=== PATIENT | female | born 1950 | race Caucasian/White ===

== ENCOUNTER 2020-11-16 15:34 | Emergency (ER) | payer MEDICARE, MEDICAID, SELFPAY ==
[2020-11-16] VITALS (17 sets, daily range): BP systolic 106–180; BP diastolic 56–87; PULSE 66–80; RESP 13–23; TEMP 36.6; O2SAT 95–100
--- NOTE | 2020-11-16 15:44 | ED_ITS ---
HPI - General Adult <Cassandra Duong MD - Last Filed: 11/19/20 03:52> General Chief complaint: Trauma Stated complaint: fall x3 days ago, busted nose, not acting normal Time Seen by Provider: 11/16/20 15:43 History of Present Illness HPI narrative: 70-year-old woman with a history of hypertension and continued tobacco use presents after a fall 3 days ago. As best we are able to tell she fell and landed on a rock she has a healing abrasion over the bridge of her nose. Apparently after the fall she had contacted her son and her son was concerned that something was not quite right took her to her sister's house today and her sister noted that she has significant short-term memory loss, obvious confusion, difficulty walking and gait that is clearly unsteady all a dramatic change from her baseline. Patient isn't complaining of any specific pain but is also unable to remember a question long enough to even try to answer in any meaningful way. Related Data Allergies Allergy/AdvReac Type Severity Reaction Status Date / Time Cefazolin Allergy Unknown Uncoded 10/12/17 13:07 SULFA (sulfonamide) Allergy Unknown Uncoded 10/12/17 13:07 Tetracycline Allergy Unknown Uncoded 10/12/17 13:07 Zolpidem AdvReac Unknown Uncoded 10/12/17 13:07 Review of Systems <Cassandra Duong MD - Last Filed: 11/19/20 03:52> Review of Systems ROS Unobtainable: Unobtainable due to mental status/LOC Patient History <Cassandra Duong MD - Last Filed: 11/19/20 03:52> Medical History Continuous tobacco abuse Hypertension Exam <Cassandra Duong MD - Last Filed: 11/19/20 03:52> Narrative Exam Narrative: General: Chronically ill-appearing but in no acute distress. Significant confusion and short-term memory loss HEENT: Moist mucous membranes, normal sclera with reactive pupils, Neck: Tender at C1-2 and 3, prior cervical fusion scar Respiratory: Lungs with mild scattered rhonchi with minimal wheeze and no consolidative findings Full and symmetrical air movement Cardiac: Regular rate and rhythm no murmurs no bruits Abdomen: Soft, nontender, good bowel tones, no flank pain Axial skeleton: No tenderness to palpation of ribs thoracic, lumbar spine, or pelvic ring Skin: Quite thin no significant trauma or abrasions aside from that over the bridge of her nose. Significant discoloration to both hands from thin skin, multiple bruises and likely Raynaud's phenomena as well Neurologic: GCS= 14 Significant confusion with impressive short-term memory loss. Antalgic and unsteady gait. She is able to move all extremities and has sensation to all extremities Extremities: Is a splint on her right wrist apparently has had wrist problems for over a year and has an appointment to see an orthopedist tomorrow. Normal range of motion at shoulders elbows wrists hips and knees. She has multiple abrasions over her lower extremities in multiple stages of healing. Her left ankle is significantly swollen with tenderness on the left lateral malleolus. Psych: Cooperative, no insight Initial Vital Signs Initial Vital Signs: Vital Signs Temperature 97.8 F 11/16/20 15:42 Pulse Rate 66 11/16/20 15:42 Respiratory Rate 20 11/16/20 15:42 Blood Pressure 171/87 H 11/16/20 15:42 Pulse Oximetry 95 11/16/20 15:42 <Elijah Edwards DO - Last Filed: 11/16/20 20:06> Initial Vital Signs Initial Vital Signs: Vital Signs Temperature 97.8 F 11/16/20 15:42 Pulse Rate 66 11/16/20 15:42 Respiratory Rate 20 11/16/20 15:42 Blood Pressure 171/87 H 11/16/20 15:42 Pulse Oximetry 95 11/16/20 15:42 Course <Cassandra Duong MD - Last Filed: 11/19/20 03:52> Orders Ordered: Discontinued Medications Hydrocodone Bitart/Acetaminophen (Hydrocodone/Acet 5/325 Tablet) 1 tab PO NOW ONE Stop: 11/16/20 18:58 Last Admin: 11/16/20 19:03 Dose: 1 tab Documented by: JOHN POTASSIUM CHLORIDE IN WATER (Potassium Cl 10 Meq/100 Ml Sophie) 10 meq in 100 mls @ 100 mls/hr IV Q1H KAREEM Stop: 11/16/20 22:14 Last Admin: 11/16/20 21:58 Dose: Not Given Documented by: Infusion: 11/16/20 21:57 Dose: 60 mls/hr Documented by: Admin: 11/16/20 21:30 Dose: 60 mls/hr Documented by: Infusion: 11/16/20 21:21 Dose: 60 mls/hr Documented by: Admin: 11/16/20 19:40 Dose: 60 mls/hr Documented by: Infusion: 11/16/20 19:40 Dose: 60 mls/hr Documented by: Infusion: 11/16/20 18:57 Dose: 60 mls/hr Documented by: Infusion: 11/16/20 18:35 Dose: 75 mls/hr Documented by: Infusion: 11/16/20 18:26 Dose: 80 mls/hr Documented by: Admin: 11/16/20 18:15 Dose: 100 mls/hr Documented by: JOHN Sodium Chloride (Hypertonic Saline 3%) 100 mls @ 100 mls/hr IV NOW ONE Stop: 11/16/20 19:44 Last Infusion: 11/16/20 18:46 Dose: 0 mls/hr Documented by: Infusion: 11/16/20 18:41 Dose: 80 mls/hr Documented by: Admin: 11/16/20 18:37 Dose: 100 mls/hr Documented by: JOHN Vital Signs Vital signs: Vital Signs - 8 hr 11/16/20 15:42 11/16/20 16:48 11/16/20 17:00 Temperature 97.8 F Pulse Rate 66 75 77 Respiratory Rate 20 Blood Pressure 171/87 H Pulse Oximetry 95 99 100 11/16/20 17:01 11/16/20 17:30 11/16/20 17:31 Temperature Pulse Rate 73 74 75 Respiratory Rate Blood Pressure 171/76 H 155/68 H Pulse Oximetry 100 100 100 11/16/20 18:00 11/16/20 18:01 11/16/20 18:30 Temperature Pulse Rate 74 75 72 Respiratory Rate 15 Blood Pressure 173/79 H Pulse Oximetry 100 100 99 11/16/20 18:31 11/16/20 19:00 11/16/20 19:01 Temperature Pulse Rate 72 80 73 Respiratory Rate 16 18 15 Blood Pressure 106/56 L 149/70 H Pulse Oximetry 100 99 99 <DO Ximena Mix Filed: 11/16/20 20:06> Orders Ordered: Discontinued Medications Hydrocodone Bitart/Acetaminophen (Hydrocodone/Acet 5/325 Tablet) 1 tab PO NOW ONE Stop: 11/16/20 18:58 Last Admin: 11/16/20 19:03 Dose: 1 tab Documented by: JOHN POTASSIUM CHLORIDE IN WATER (Potassium Cl 10 Meq/100 Ml Sophie) 10 meq in 100 mls @ 100 mls/hr IV Q1H KAREEM Stop: 11/16/20 22:14 Last Admin: 11/16/20 21:58 Dose: Not Given Documented by: Infusion: 11/16/20 21:57 Dose: 60 mls/hr Documented by: Admin: 11/16/20 21:30 Dose: 60 mls/hr Documented by: Infusion: 11/16/20 21:21 Dose: 60 mls/hr Documented by: Admin: 11/16/20 19:40 Dose: 60 mls/hr Documented by: Infusion: 11/16/20 19:40 Dose: 60 mls/hr Documented by: Infusion: 11/16/20 18:57 Dose: 60 mls/hr Documented by: Infusion: 11/16/20 18:35 Dose: 75 mls/hr Documented by: Infusion: 11/16/20 18:26 Dose: 80 mls/hr Documented by: Admin: 11/16/20 18:15 Dose: 100 mls/hr Documented by: JOHN Sodium Chloride (Hypertonic Saline 3%) 100 mls @ 100 mls/hr IV NOW ONE Stop: 11/16/20 19:44 Last Infusion: 11/16/20 18:46 Dose: 0 mls/hr Documented by: Infusion: 11/16/20 18:41 Dose: 80 mls/hr Documented by: Admin: 11/16/20 18:37 Dose: 100 mls/hr Documented by: JOHN Vital Signs Vital signs: Vital Signs - 8 hr 11/16/20 15:42 11/16/20 16:48 11/16/20 17:00 Temperature 97.8 F Pulse Rate 66 75 77 Respiratory Rate 20 Blood Pressure 171/87 H Pulse Oximetry 95 99 100 11/16/20 17:01 11/16/20 17:30 11/16/20 17:31 Temperature Pulse Rate 73 74 75 Respiratory Rate Blood Pressure 171/76 H 155/68 H Pulse Oximetry 100 100 100 11/16/20 18:00 11/16/20 18:01 11/16/20 18:30 Temperature Pulse Rate 74 75 72 Respiratory Rate 15 Blood Pressure 173/79 H Pulse Oximetry 100 100 99 11/16/20 18:31 11/16/20 19:00 11/16/20 19:01 Temperature Pulse Rate 72 80 73 Respiratory Rate 16 18 15 Blood Pressure 106/56 L 149/70 H Pulse Oximetry 100 99 99 Medical Decision Making <Cassandra Duong MD - Last Filed: 11/19/20 03:52> Medical Records Medical records reviewed: Yes I reviewed the patient's medical records. Lab Data Lab results reviewed: Yes I reviewed the patient's lab results. Result diagrams: 11/16/20 16:35 11/16/20 16:35 Labs: Lab Results 11/16/20 11/16/20 11/16/20 Range/Units 16:35 16:35 16:35 WBC 9.0 (4.5-11.0) X10^3/uL RBC 3.88 L (4.0-5.2) X10^6/uL Hgb 11.2 L (12.0-16.0) g/dL Hct 31.4 L (36-46) % MCV 80.9 (80-100) fL MCH 29.0 (26-34) PG MCHC 35.8 (30-36) % RDW 14.8 (11.6-14.8) % Plt Count 193 (150-400) X10^3/uL Neut % (Auto) 87.1 H (50-75) % Lymph % (Auto) 4.4 L (25-40) % Hooker % (Auto) 8.2 (3-14) % Eos % (Auto) 0.2 L (2-4) % Baso % (Auto) 0.1 (0-2) % Neut # (Auto) 7800 H (6661-8456) /uL Lymph # (Auto) 400 L (1328-7706) /uL Hooker # (Auto) 700 (0-900) /uL Eos # (Auto) 0 (0-450) /uL Baso # (Auto) 0 (0-100) /uL Sodium 104 L* (137-145) mmol/L Potassium 2.7 L* (3.4-5.1) mmol/L Chloride 62 L* (98-107) mmol/L Carbon Dioxide 31 (22-32) mmol/L BUN 20 H (7-17) mg/dL Creatinine 1.16 H (0.52-1.04) mg/dL Estimated GFR 46.5 L (>60) mL/min BUN/Creatinine Ratio 17.2 (6-22) Glucose 116 H (80-110) mg/dL Serum Osmolality (280-301) mOsmol/kg Calcium 9.4 (8.4-10.2) mg/dL Total Bilirubin 1.3 (0.2-1.3) mg/dL AST 71 H (14-36) IU/L ALT 31 (<35) IU/L Alkaline Phosphatase 128 H (38-126) U/L Troponin I < 0.012 (0.01-0.034) ng/mL Total Protein 7.1 (6.3-8.2) g/dL Albumin 3.9 (3.5-5.0) g/dL Globulin 3.2 (1.7-4.1) g/dL Albumin/Globulin Ratio 1.2 (1.0-2.8) Ethyl Alcohol ( - 10) mg/dL SARS-CoV-2 (PCR) Negative (Negative) 11/16/20 11/16/20 Range/Units 16:35 16:35 WBC (4.5-11.0) X10^3/uL RBC (4.0-5.2) X10^6/uL Hgb (12.0-16.0) g/dL Hct (36-46) % MCV (80-100) fL MCH (26-34) PG MCHC (30-36) % RDW (11.6-14.8) % Plt Count (150-400) X10^3/uL Neut % (Auto) (50-75) % Lymph % (Auto) (25-40) % Hooker % (Auto) (3-14) % Eos % (Auto) (2-4) % Baso % (Auto) (0-2) % Neut # (Auto) (2079-2343) /uL Lymph # (Auto) (6302-3518) /uL Hooker # (Auto) (0-900) /uL Eos # (Auto) (0-450) /uL Baso # (Auto) (0-100) /uL Sodium (137-145) mmol/L Potassium (3.4-5.1) mmol/L Chloride (98-107) mmol/L Carbon Dioxide (22-32) mmol/L BUN (7-17) mg/dL Creatinine (0.52-1.04) mg/dL Estimated GFR (>60) mL/min BUN/Creatinine Ratio (6-22) Glucose (80-110) mg/dL Serum Osmolality 218 L (280-301) mOsmol/kg Calcium (8.4-10.2) mg/dL Total Bilirubin (0.2-1.3) mg/dL AST (14-36) IU/L ALT (<35) IU/L Alkaline Phosphatase (38-126) U/L Troponin I (0.01-0.034) ng/mL Total Protein (6.3-8.2) g/dL Albumin (3.5-5.0) g/dL Globulin (1.7-4.1) g/dL Albumin/Globulin Ratio (1.0-2.8) Ethyl Alcohol < 10 ( - 10) mg/dL SARS-CoV-2 (PCR) (Negative) Imaging Data CT scan - head: Radiologist's Impression: FINDINGS: Image quality: Excellent. CSF spaces: Basal cisterns are patent. No extra-axial fluid collections. The ventricles are symmetric in size and shape. Incidental note of a cavum septum pellucidum. Brain: No intracranial bleeds or masses. There is cerebral volume loss for age, with resultant ventricular and sulcal prominence. There are periventricular and deep white matter chronic small vessel ischemic changes. There is intracranial internal carotid artery atherosclerosis. Skull and face: Calvarium and visualized facial bones appear intact, without s uspicious lesions. Sinuses: Visualized sinuses and mastoids are clear. IMPRESSION: Senescent changes without evidence of an acute intracranial abnormality. Dictated by: Nehemiah Mcelroy D.O. on 11/16/2020 at 15:51 XR ankle: Radiologist's Impression: FINDINGS: Bones: Osseous structures are demineralized. There is no acute fracture. Alignment is normal. Joint spacing is maintained. Soft tissues: There is a joint effusion. There is diffuse soft tissue swelling. Small spurs at the Achilles and plantar fascial insertions. IMPRESSION: Joint effusion and soft tissue swelling without evidence of an acute osseous abnormality. Dictated by: Nehemiah Mcelroy D.O. on 11/16/2020 at 15:38 ECG Data Attestation: I personally reviewed and interpreted this ECG as follows: Interpretation: Sinus rhythm at a rate of 74 Left ventricular hypertrophy with repolarization abnormalities No acute ischemic criteria MDM Narrative Medical decision making narrative: Emergency Medicine: Utilization of CT for Minor Blunt Head Trauma (Adult) Patient is 18 or older, presenting with minor blunt head trauma. Head CT was ordered by an emergency animal caretaker for trauma because Patient is 65 or older and has GCS < 15 CT scans come back unremarkable however sodium is dramatically low at 104, potassium as low as 2.7 chloride at 62. Certainly explaining her altered mental status. Spoke with Dr. Keller, nephrology on-call. His recommendation was 100 cc of hypertonic saline, rechecking a sodium level 1 hour after that. 100% free water restriction. Checking urine osmolality. Will need ICU care with nephrology consultation available. Will see if [facility] has beds available. Findings and plan are reviewed with patient and her sister, questions are answered Care transferred to Dr Edwards at change of shift <Elijah Edwards, - Last Filed: 11/16/20 20:06> Lab Data Lab results reviewed: Yes I reviewed the patient's lab results. Labs: Lab Results 11/16/20 11/16/20 11/16/20 Range/Units 16:35 16:35 16:35 WBC 9.0 (4.5-11.0) X10^3/uL RBC 3.88 L (4.0-5.2) X10^6/uL Hgb 11.2 L (12.0-16.0) g/dL Hct 31.4 L (36-46) % MCV 80.9 (80-100) fL MCH 29.0 (26-34) PG MCHC 35.8 (30-36) % RDW 14.8 (11.6-14.8) % Plt Count 193 (150-400) X10^3/uL Neut % (Auto) 87.1 H (50-75) % Lymph % (Auto) 4.4 L (25-40) % Hooker % (Auto) 8.2 (3-14) % Eos % (Auto) 0.2 L (2-4) % Baso % (Auto) 0.1 (0-2) % Neut # (Auto) 7800 H (6719-7670) /uL Lymph # (Auto) 400 L (3650-4806) /uL Hooker # (Auto) 700 (0-900) /uL Eos # (Auto) 0 (0-450) /uL Baso # (Auto) 0 (0-100) /uL Sodium 104 L* (137-145) mmol/L Potassium 2.7 L* (3.4-5.1) mmol/L Chloride 62 L* (98-107) mmol/L Carbon Dioxide 31 (22-32) mmol/L BUN 20 H (7-17) mg/dL Creatinine 1.16 H (0.52-1.04) mg/dL Estimated GFR 46.5 L (>60) mL/min BUN/Creatinine Ratio 17.2 (6-22) Glucose 116 H (80-110) mg/dL Serum Osmolality (280-301) mOsmol/kg Calcium 9.4 (8.4-10.2) mg/dL Total Bilirubin 1.3 (0.2-1.3) mg/dL AST 71 H (14-36) IU/L ALT 31 (<35) IU/L Alkaline Phosphatase 128 H (38-126) U/L Troponin I < 0.012 (0.01-0.034) ng/mL Total Protein 7.1 (6.3-8.2) g/dL Albumin 3.9 (3.5-5.0) g/dL Globulin 3.2 (1.7-4.1) g/dL Albumin/Globulin Ratio 1.2 (1.0-2.8) Ethyl Alcohol ( - 10) mg/dL SARS-CoV-2 (PCR) Negative (Negative) 11/16/20 11/16/20 Range/Units 16:35 16:35 WBC (4.5-11.0) X10^3/uL RBC (4.0-5.2) X10^6/uL Hgb (12.0-16.0) g/dL Hct (36-46) % MCV (80-100) fL MCH (26-34) PG MCHC (30-36) % RDW (11.6-14.8) % Plt Count (150-400) X10^3/uL Neut % (Auto) (50-75) % Lymph % (Auto) (25-40) % Hooker % (Auto) (3-14) % Eos % (Auto) (2-4) % Baso % (Auto) (0-2) % Neut # (Auto) (5266-8928) /uL Lymph # (Auto) (8985-2836) /uL Hooker # (Auto) (0-900) /uL Eos # (Auto) (0-450) /uL Baso # (Auto) (0-100) /uL Sodium (137-145) mmol/L Potassium (3.4-5.1) mmol/L Chloride (98-107) mmol/L Carbon Dioxide (22-32) mmol/L BUN (7-17) mg/dL Creatinine (0.52-1.04) mg/dL Estimated GFR (>60) mL/min BUN/Creatinine Ratio (6-22) Glucose (80-110) mg/dL Serum Osmolality 218 L (280-301) mOsmol/kg Calcium (8.4-10.2) mg/dL Total Bilirubin (0.2-1.3) mg/dL AST (14-36) IU/L ALT (<35) IU/L Alkaline Phosphatase (38-126) U/L Troponin I (0.01-0.034) ng/mL Total Protein (6.3-8.2) g/dL Albumin (3.5-5.0) g/dL Globulin (1.7-4.1) g/dL Albumin/Globulin Ratio (1.0-2.8) Ethyl Alcohol < 10 ( - 10) mg/dL SARS-CoV-2 (PCR) (Negative) Imaging Data Chest x-ray: Radiologist's Impression: [address] [id number] ReportSigned Patient: Arlene Tello KMR#: [id number]: 2Acct:[id number]/Sex: 70 / FDate of Service: 11/16/20Loc: EDAccession Number: [id number] Procedure: XR chest 1V Ordering Provider: Elijah Edwards D.O. PROCEDURE: XR CHEST 1V INDICATIONS: eval for mass TECHNIQUE: One view of the chest was acquired. COMPARISON: None. FINDINGS: Surgical changes and devices: None. Lungs and pleura: Lungs are clear. No pleural effusions or pneumothorax. No visualized mass. Mediastinum: Mediastinal contours appear normal. Heart size is enlarged. Bones and chest wall: No suspicious bony lesions. Overlying soft tissues appear unremarkable. IMPRESSION: No acute pulmonary process. Dictated by: Chhaya Goodrich M.D. on 11/16/2020 at 18:58 Approved by: Chhaya Goodrich M.D. on 11/16/2020 at 18:59 MDM Narrative Medical decision making narrative: Dr Edwards: Received turned over. Reviewed patient's history and physical. Introduced myself to the patient. Up to this point patient is found to be hyponatremic, hypokalemic and hypochloremic. CT scans of her head and neck are unremarkable. Dr. Duong who initially evaluated the patient here in the emergency department discussed the case with Nephrology at [facility] who recommended 3% saline at 100 cc/hour. I discussed the case with Dr. bernal principal technical architect at [facility] and telling him who agreed to take the patient in transfer. He recommended not giving the patient the 3% saline. Chest x-ray was added on per his recommendation. Alcohol level was also added on per his recommendation. He recommended a very slow increase in her sodium with initially having limitations on free water intake. I did discuss the transfer with the patient and family at bedside. Patient is stable for transfer. Discharge Plan Departure Patient Disposition: [facility] Clinical Impression: Hyponatremia, Hypokalemia, Fall, Hypochloremia
--- NOTE | 2020-11-16 16:05 | DI.RAD.S_ITS ---
PROCEDURE: XR ANKLE LT MIN 3V INDICATIONS: fall, swelling and pain TECHNIQUE: 3 views of the ankle were acquired. COMPARISON: None. FINDINGS: Bones: Osseous structures are demineralized. There is no acute fracture. Alignment is normal. Joint spacing is maintained. Soft tissues: There is a joint effusion. There is diffuse soft tissue swelling. Small spurs at the Achilles and plantar fascial insertions. IMPRESSION: Joint effusion and soft tissue swelling without evidence of an acute osseous abnormality. Dictated by: Nehemiah Mcelroy D.O. on 11/16/2020 at 15:38 Approved by: Nehemiah Mcelroy D.O. on 11/16/2020 at 15:50
--- NOTE | 2020-11-16 16:06 | DI.CT.S_ITS ---
PROCEDURE: CT HEAD/BRAIN WO CON INDICATIONS: fall, GCS=14 TECHNIQUE: Noncontrast 4.5 mm thick angled axial sections acquired from the foramen magnum to the vertex, with coronal and sagittal reformats. For radiation dose reduction, the following was used: automated exposure control, adjustment of mA and/or kV according to patient size. COMPARISON: None. FINDINGS: Image quality: Excellent. CSF spaces: Basal cisterns are patent. No extra-axial fluid collections. The ventricles are symmetric in size and shape. Incidental note of a cavum septum pellucidum. Brain: No intracranial bleeds or masses. There is cerebral volume loss for age, with resultant ventricular and sulcal prominence. There are periventricular and deep white matter chronic small vessel ischemic changes. There is intracranial internal carotid artery atherosclerosis. Skull and face: Calvarium and visualized facial bones appear intact, without suspicious lesions. Sinuses: Visualized sinuses and mastoids are clear. IMPRESSION: Senescent changes without evidence of an acute intracranial abnormality. Dictated by: Nehemiah Mcelroy D.O. on 11/16/2020 at 15:51 Approved by: Nehemiah Mcelroy D.O. on 11/16/2020 at 15:55
--- NOTE | 2020-11-16 16:06 | DI.CT.S_ITS ---
PROCEDURE: CT CERVICAL SPINE WO CON INDICATIONS: fall, tender C2,3,4 TECHNIQUE: Noncontrast 3 mm thick sections acquired from the skull base to the T4 level. Sagittal and coronal reformats were then constructed. For radiation dose reduction, the following was used: automated exposure control, adjustment of mA and/or kV according to patient size. COMPARISON: None. FINDINGS: Image quality: Excellent. Bones: There is no acute fracture. Minimal anterolisthesis of C4 on C5 is likely degenerative. There is mild intervertebral disc space loss noted throughout the cervical spine with complete disc space loss C6-C7. There is diffuse endplate degenerative changes, uncovertebral joint hypertrophy and facet arthropathy. Posterior disc herniation is noted C3-C4 which causes mild central spinal canal stenosis. There is disc bulging at C5-C6 which causes at least mild to moderate spinal canal stenosis. There is severe spinal canal stenosis posterior to C6-C7 from disc osteophyte complex. Multiple levels of mild bony neural foraminal stenosis are noted. There is moderate spinal canal stenosis at C5-C6 and C6-C7. Soft tissues: Prevertebral soft tissues are normal in thickness. No paravertebral hematomas. No apical pneumothoraces. There is diffuse carotid vascular calcifications. There is mild a pickle pleural scarring. IMPRESSION: No acute fracture or traumatic malalignment. Advanced degenerative changes of the cervical spine with severe spinal canal stenosis posterior to C6-C7. There is also varying degrees of neural foraminal stenosis which is worse at C5-C6 and C6-C7. Dictated by: Nehemiah Mcelroy D.O. on 11/16/2020 at 15:55 Approved by: Nehemiah Mcelroy D.O. on 11/16/2020 at 16:02
[2020-11-16 16:52] LABS: Add Manual Diff / Slide Review NO; Basophils Absolute Auto 0 /uL (0-100); Basophils Percent Auto 0.1 % (0-2); Eosinophils Absolute Auto 0 /uL (0-450); Eosinophils Percent Auto 0.2 % (2-4); Hematocrit 31.4 % (36-46); Hemoglobin 11.2 g/dL (12.0-16.0); Lymphocytes Absolute Auto 400 /uL (1100-4500); Lymphocytes Percent Auto 4.4 % (25-40); Mean Corpuscular HGB Conc 35.8 % (30-36); Mean Corpuscular Volume 80.9 fL (80-100); Monocytes Absolute Auto 700 /uL (0-900); Monocytes Percent Auto 8.2 % (3-14); Neutrophils Absolute Auto 7800 /uL (1500-7000); Neutrophils Percent Auto 87.1 % (50-75); Platelet Count 193 X10^3/uL (150-400); Red Blood Cell Count 3.88 X10^6/uL (4.0-5.2); Red Cell Distribution Width 14.8 % (11.6-14.8)
[2020-11-16 16:58] LABS: Alanine Aminotransferase 31 IU/L (<35); Albumin 3.9 g/dL (3.5-5.0); Albumin Globulin Ratio 1.2 (1.0-2.8); Alkaline Phosphatase 128 U/L (38-126); Aspartate Aminotransferase 71 IU/L (14-36); BUN Creatinine Ratio 17.2 (6-22); Bilirubin Total 1.3 mg/dL (0.2-1.3); Blood Urea Nitrogen 20 mg/dL (7-17); Calcium 9.4 mg/dL (8.4-10.2); Carbon Dioxide 31 mmol/L (22-32); Estimated Glomerular Filt Rate 46.5 mL/min (>60); Globulin 3.2 g/dL (1.7-4.1); Glucose 116 mg/dL (80-110); HEMOLYSIS < 15 (0-50); Total Protein 7.1 g/dL (6.3-8.2)
[2020-11-16 17:09] LABS: Troponin I < 0.012 ng/mL (0.01-0.034)
[2020-11-16 17:11] LABS: Sodium 104 mmol/L (137-145)
[2020-11-16 17:12] LABS: Chloride 62 mmol/L (98-107); Potassium 2.7 mmol/L (3.4-5.1)
[2020-11-16 17:39] LABS: COVID19 - ADMIT (NP swab/PCR) Negative (Negative)
[2020-11-16] MEDS: POTASSIUM CHLORIDE IN WATER 10 MEQ/100 ML PIGGYBACK 100 MEQ IV (18:15)
[2020-11-16] MEDS: SODIUM CHLORIDE 3 % 100 ML IV (18:37)
--- NOTE | 2020-11-16 18:42 | DI.RAD.S_ITS ---
PROCEDURE: XR CHEST 1V INDICATIONS: eval for mass TECHNIQUE: One view of the chest was acquired. COMPARISON: None. FINDINGS: Surgical changes and devices: None. Lungs and pleura: Lungs are clear. No pleural effusions or pneumothorax. No visualized mass. Mediastinum: Mediastinal contours appear normal. Heart size is enlarged. Bones and chest wall: No suspicious bony lesions. Overlying soft tissues appear unremarkable. IMPRESSION: No acute pulmonary process. Dictated by: Chhaya Goodrich M.D. on 11/16/2020 at 18:58 Approved by: Chhaya Goodrich M.D. on 11/16/2020 at 18:59
[2020-11-16 18:53] LABS: Ethanol (ETOH) < 10 mg/dL
[2020-11-16] MEDS: HYDROCODONE/ACET 5/325 TABLET 1 TAB PO (19:03)
[2020-11-16] MEDS: POTASSIUM CHLORIDE IN WATER 10 MEQ/100 ML PIGGYBACK 60 MEQ IV ×2 (19:40→21:30)
[2020-11-18 17:10] LABS: Osmolality, Serum 218 mOsmol/kg (280-301)
== END 2020-11-16 21:58 | disposition short-term general hospital (02) ==
PROVIDERS: Emergency Medicine; Emergency Provider Emergency Medicine
DX: E87.1 Hypo-osmolality and hyponatremia (principal); E87.6 Hypokalemia; E87.8 Other disorders of electrolyte and fluid balance, not elsewhere classified; W19.XXXA Unspecified fall, initial encounter; S00.31XA Abrasion of nose, initial encounter; M25.572 Pain in left ankle and joints of left foot; M54.2 Cervicalgia; Z20.822 Contact with and (suspected) exposure to COVID-19
CPT/HCPCS: 36415; 70450; 71045; 72125; 73610; 80053; 80320; 83930; 84484; 85025; 87635; 93005; 93010; 99285; C9803

== ENCOUNTER 2023-05-18 20:04 | Inpatient (IN) | payer MEDICARE, MEDICAID, SELFPAY ==
[2023-05-18] VITALS (15 sets, daily range): BP systolic 109–211; BP diastolic 54–133; PULSE 77–98; RESP 20–49; TEMP 36.6; O2SAT 69–100; BMI 21.9; BMI 24.8
--- NOTE | 2023-05-18 | DI.ECHO.S_ITS ---
[facility] +---------+ : : [address] [place] : : : : [id number] : : : : Phone: [phone]+ Echocardiogram Report + + :Name: MAICOL SANCHES Study Date: 05/19/2023 Height: 67 in : :[facility] ReadingLocation: Weight: 140 lb : : Gender: Female BSA: 1.7 m2 : :: 1950 Age: 73 yrs BP: 158/72 mmHg: :Reason For Study: CONGESTIVE HEART FAILURE : :Ordering Physician: MARTINEZ, : :NANNETTE Anderson MD Performed By: Cici Camp : :Referring: NANNETTE HENRIQUEZ MD : + + Interpretation Summary 1) Normal left ventricular thickness and size with low normal systolic function (EF 50-55%). 2) Normal right ventricular size and function. 3) No significant valvular abnormalities. 4) The right ventricular systolic pressure is estimated to be at least 46 mmHg based on an estimated right atrial pressure of 8 mm Hg. 5) No prior Echo available for comparison. Procedure: A two-dimensional transthoracic echocardiogram with color flow and Doppler was performed. The study quality was technically adequate. There is no prior echocardiogram noted for this patient. The patient was in normal sinus rhythm during the exam. The heart rate ranged between 51-74 bpm during the study. Left Ventricle: The left ventricle is normal in size and wall thickness. The ejection fraction is estimated to be 50-55%. There are no focal wall motion abnormalities. Diastolic parameters suggest a relaxation abnormality of the left ventricle, consistent with probable normal filling pressures. Right Ventricle: The right ventricle is normal in size and function. Atria: The left atrium is moderately dilated. Right atrial size is normal. There is no Doppler evidence for an interatrial shunt. Mitral Valve: The mitral valve leaflets are mildly calcified. There is no mitral valve stenosis. There is mild mitral regurgitation. Aortic Valve: The aortic valve is not well visualized. There is no aortic valve stenosis. No aortic regurgitation is present. Tricuspid Valve: The tricuspid valve leaflets are thin and pliable. There is mild tricuspid regurgitation. The right ventricular systolic pressure is estimated to be at least 46 mmHg based on an estimated right atrial pressure of 8 mm Hg. Pulmonic Valve: The pulmonic valve is not well seen, but is grossly normal. There is no pulmonic valvular regurgitation. Great Vessels: The aortic root is normal size. The dimensions of the ascending aorta are normal. The IVC is dilated (diameter is greater than 2.1 cm) yet it collapses greater than 50% with a sniff. This suggests a right atrial pressure of 8 mm Hg. Pericardium/ Pleura There is no pericardial effusion. There is no pleural effusion. MMode/2D Measurements & Calculations LVIDd: 5.0 cm LVOT diam: 2.0 cm LVIDs: 3.3 cm Ao root diam: 3.5 cm FS: 35.5 % asc Aorta Diam: 3.6 cm IVSd: 0.89 cm LVPWd: 0.89 cm LV paez. diameter/BSA (cm/m^2): 2.9 LV sys. diameter/BSA (cm/m^2): 1.9 LA A2 area: 23.3 cm2 RA long axis: 5.6 cm LA A4 area: 23.5 cm2 RA area: 18.5 cm2 LA length (vol): 5.9 cm RA vol: 51.7 ml LA vol: 78.4 ml RA : 29.8 ml/m2 LA vol index: 45.1 ml/m2 IVC diam: 2.4 cm RVD1 (basal): 3.3 cm RVD2 (mid): 2.6 cm TAPSE: 3.1 cm Doppler Measurements & Calculations Ao V2 max: 122.3 cm/sec LVOT Max Gustavo: 73.7 cm/sec Ao V2 mean: 90.2 cm/sec LV V1 max P.2 mmHg Ao max P.0 mmHg LV V1 VTI: 16.7 cm Ao mean P.5 mmHg LARISSA(I,D): 1.7 cm2 Ao V2 VTI: 31.6 cm LARISSA(V,D): 1.9 cm2 sev ratio: 0.53 LARISSA indexed to BSA (cm^2/m^2): 0.98 MV E max gustavo: 102.2 cm/sec TR max gustavo: 307.4 cm/sec MV A max gustavo: 66.8 cm/sec TR max P.8 mmHg MV E/A: 1.5 PA pr(Accel): 44.7 mmHg Med Peak E' Gustavo: 9.9 cm/sec E/E' med: 10.3 Lat Peak E' Gustavo: 8.5 cm/sec E/E' lat: 12.0 E/e' average: 11.2 MV dec time: 0.17 sec MVA(VTI): 2.0 cm2 MV V2 mean: 69.3 cm/sec SV(LVOT): 53.5 ml MV mean P.1 mmHg MV V2 VTI: 27.2 cm Reading Physician:09:31 AM
--- NOTE | 2023-05-18 20:11 | ED_ITS ---
HPI - SOB/Dyspnea General Chief Complaint: Shortness of Breath/Dyspnea Stated Complaint: unable to breathe Time Seen by Provider: 05/18/23 20:10 Source: patient, RN notes reviewed and old records reviewed Mode of arrival: Family Vehicle Limitations: no limitations History of Present Illness HPI Narrative: 73-year-old female with history of hypertension and chronic tobacco abuse and COPD. Patient presents with complaint of shortness of breath for the past several days that has been worsening. She denies chest pain or pressure but feels very tight and wheezy. She states she thinks she had a fever today subjectively. She is had a cough which he states became productive today but did not look to see what color it was or consistency. She denies significant nasal congestion. She states no nausea or vomiting. No changes to bowel movements with no diarrhea constipation, no black or bloody stools. Denies any urinary symptoms. Denies any new swelling in her extremities. She notes that she uses albuterol daily, from our conversation does not sound like she uses a steroid inhaler. She states she has several antibiotic allergies. She does continue to use tobacco daily, states she drinks about 7 beers daily denies withdrawal symptoms when not drinking. Denies any recreational or illicit drugs. States she has a primary care physician but can not recall who they are. Related Data Allergies Allergy/AdvReac Type Severity Reaction Status Date / Time Cefazolin Allergy Unknown Uncoded 10/12/17 13:07 SULFA (sulfonamide) Allergy Unknown Uncoded 10/12/17 13:07 Tetracycline Allergy Unknown Uncoded 10/12/17 13:07 Zolpidem AdvReac Unknown Uncoded 10/12/17 13:07 Review of Systems Review of Systems ROS Unobtainable: All systems reviewed & are unremarkable except as noted in HPI and below Patient History Medical History Alcoholism Continuous tobacco abuse Hypertension Social History household members: none Smoking Status: Current every day smoker Exam Narrative Exam Narrative: GEN: Elderly appearing female alert and oriented x 3, patient appears to be in moderate to severe distress. HEENT: Atraumatic, pupils are equal round reactive to light, extraocular movements are intact, nares are clear, there is no conjunctival pallor. Throat is clear without any exudates, erythema, tonsillar enlargement or uvular deviation HEART: Tachycardic but Regular rate and rhythm without murmur, clicks, rubs. pulses are equal in upper and lower extremities, trace edema bilateral lower extremities. LUNGS:Lungs patient has significant wheeze bilaterally but right greater than left, tachypnea, accessory muscle use the SCM, patient is able to speak in 2-3 words at a time. No rales, crackles, chest moves symmetrically. ABD:bowel sounds normal, soft, non-tender, no guarding, rebound, rigidity, no masses noted, no hepatosplenomegaly :No CVA tenderness MSCL: Non-tender, no muscle atrophy, muscles strength 5/5 upper and lower extremities, full range of motion, normal gait NEURO:CN 2-12 intact, sensation normal SKIN: No rash, erythema or other skin changes noted. Initial Vital Signs Initial Vital Signs: Vital Signs Temperature 98 F 05/18/23 20:08 Pulse Rate 77 05/18/23 20:08 Respiratory Rate 32 H 05/18/23 20:08 Blood Pressure 207/109 H 05/18/23 20:08 Pulse Oximetry 69 L 05/18/23 20:08 Oxygen Delivery Method Room Air 05/18/23 20:08 Course Orders Ordered: ED Orders 05/18/23 20:17 XR chest 1V Stat EKG-12 Lead Stat Measure peak expiratory flow ONCE RT Consult Eval and Treat NOW 05/18/23 20:28 Complete Blood Count AUTO DIFF Stat Comprehensive Metabolic Panel Stat Lactate (Lactic Acid) Stat NT-proBNP (BNP-Adult 18+) Stat PTT Partial Thromboplastin Peter Stat Prothrombin Time INR Stat Respiratory Panel (Film Array) Stat Troponin & CK Cardiac Panel Stat 05/18/23 21:04 ABG [Arterial Blood Gas] Stat Acetaminophen (Acetaminophen 325 Mg Tablet) 650 mg PO Q6H PRN PRN Reason: Fever/Mild Pain (1-3) Albuterol (Albuterol 2.5 Mg/3 Ml Neb (Adult)) 2.5 mg INH [id number] PRN PRN Reason: Shortness Of Breath Albuterol/Ipratropium (Albuterol/Ipratropium 3 Ml Ampul) 3 ml INH [id number] PRN PRN Reason: Shortness Of Breath Enoxaparin Sodium (Enoxaparin 30 Mg/0.3 Ml Syringe) 30 mg SUBCUT DAILY [facility] Furosemide (Furosemide 40 Mg Tablet) 40 mg PO DAILY [facility] Hydralazine HCl (Hydralazine 20 Mg/Ml Vial) 10 mg IV Q6HR PRN PRN Reason: For SBP>170 Methylprednisolone (Methylprednisolone 125 Mg/2 Ml Vial) 60 mg IV Q12H [facility] Metoprolol Tartrate (Metoprolol Ir 25 Mg Tablet) 25 mg PO BID [facility] Last Admin: 05/19/23 01:29 Dose: Not Given Documented By: LN Naloxone HCl (Naloxone 0.4 Mg/Ml Vial) 0.2 mg IV Q2MIN PRN PRN Reason: Opiate Reversal Nicotine (Nicotine 21 Mg Patch) 21 mg TOP DAILY PRN PRN Reason: smoking Oseltamivir Phosphate (Oseltamivir 75 Mg Capsule) 75 mg PO BID [facility] Pantoprazole Sodium (Pantoprazole Dr 40 Mg Tablet) 40 mg PO 0700 [facility] Discontinued Medications Albuterol (Albuterol 2.5 Mg/3 Ml Neb (Adult)) 10 mg INH NOW ONE Stop: 05/18/23 20:40 Last Admin: 05/18/23 20:44 Dose: 10 mg Documented By: MR Albuterol/Ipratropium (Albuterol/Ipratropium 3 Ml Ampul) 3 ml INH NOW ONE Stop: 05/18/23 20:16 Last Admin: 05/18/23 20:21 Dose: 3 ml Documented By: MR Albuterol/Ipratropium (Albuterol/Ipratropium 3 Ml Ampul) 3 ml INH NOW ONE Stop: 05/18/23 20:20 Last Admin: 05/18/23 20:21 Dose: 3 ml Documented By: MR Albuterol/Ipratropium (Albuterol/Ipratropium 3 Ml Ampul) 3 ml INH NOW ONE Stop: 05/18/23 20:21 Last Admin: 05/18/23 20:24 Dose: 3 ml Documented By: MR Furosemide (Furosemide 40 Mg/4 Ml Vial) 40 mg IV NOW ONE Stop: 05/18/23 21:01 Last Admin: 05/18/23 21:18 Dose: 40 mg Documented By: KARTIK Lorazepam (Lorazepam 2 Mg/Ml Inj) 0.5 mg IV NOW ONE Stop: 05/18/23 21:12 Last Admin: 05/18/23 21:18 Dose: 0.5 mg Documented By: KARTIK Methylprednisolone (Methylprednisolone 125 Mg/2 Ml Vial) 125 mg IV NOW ONE Stop: 05/18/23 20:18 Last Admin: 05/18/23 20:27 Dose: 125 mg Documented By: ASHVIN Nitroglycerin (Nitroglycerin Oint 1 Inch/Gm Oint...G.) 0.5 inch TOP NOW ONE Stop: 05/18/23 21:18 Last Admin: 05/18/23 21:20 Dose: 0.5 inch Documented By: KARTIK Oseltamivir Phosphate (Oseltamivir 75 Mg Capsule) 75 mg PO NOW ONE Stop: 05/18/23 21:56 Last Admin: 05/18/23 22:37 Dose: 75 mg Documented By: KARTIK Vital Signs Vital signs: Vital Signs - 8 hr 05/18/23 20:08 05/18/23 20:13 05/18/23 20:14 Temperature 98 F Pulse Rate 77 81 79 Respiratory Rate 32 H Blood Pressure 207/109 H Pulse Oximetry 69 L 92 97 Oxygen Delivery Method Room Air 05/18/23 20:14 05/18/23 20:25 05/18/23 20:25 Temperature Pulse Rate 77 Respiratory Rate 25 H Blood Pressure 207/109 H 180/85 H Pulse Oximetry 100 Oxygen Delivery Method 05/18/23 20:30 05/18/23 20:36 05/18/23 20:36 Temperature Pulse Rate 81 81 Respiratory Rate 28 H 26 H Blood Pressure 211/97 H Pulse Oximetry 99 98 Oxygen Delivery Method 05/18/23 21:00 05/18/23 21:01 05/18/23 21:01 Temperature Pulse Rate 89 92 H Respiratory Rate 40 H 49 H Blood Pressure 183/133 H Pulse Oximetry 99 99 Oxygen Delivery Method 05/18/23 21:20 05/18/23 21:30 05/18/23 21:30 Temperature Pulse Rate 98 H 97 H Respiratory Rate 29 H Blood Pressure 183/133 H 166/77 H Pulse Oximetry 92 Oxygen Delivery Method BiPAP 05/18/23 22:00 05/18/23 22:00 Temperature Pulse Rate 86 Respiratory Rate 20 Blood Pressure 141/66 H Pulse Oximetry 94 Oxygen Delivery Method MDM - SOB/Dyspnea Lab Data 05/18/23 20:28 05/18/23 20:28 Labs: Lab Results 05/18/23 05/18/23 Range/Units 20:28 21:04 WBC 8.4 (4.5-11.0) X10^3/uL RBC 3.89 L (4.0-5.2) X10^6/uL Hgb 12.0 (12.0-16.0) g/dL Hct 35.1 L (36-46) % MCV 90.2 (80-100) fL MCH 30.8 (26-34) PG MCHC 34.1 (30-36) % RDW 15.1 H (11.6-14.8) % Plt Count 137 L (150-400) X10^3/uL Neut % (Auto) 89.3 H (50-75) % Lymph % (Auto) 4.0 L (25-40) % [place] % (Auto) 6.2 (3-14) % Eos % (Auto) 0.3 L (2-4) % Baso % (Auto) 0.2 (0-2) % Neut # (Auto) 7500 H (2824-6686) /uL Lymph # (Auto) 300 L (0489-1105) /uL [place] # (Auto) 500 (0-900) /uL Eos # (Auto) 0 (0-450) /uL Baso # (Auto) 0 (0-100) /uL PT 11.8 (10.1-12.7) SECONDS INR 1.0 (0.9-1.3) APTT 29 (26-36) SECONDS ABG Sample Site Left radial ABG pH 7.30 L (7.35-7.45) ABG pCO2 60.8 H (35-45) mmHg ABG pO2 47 L* (80-100) mmHg ABG HCO3 30 H (23-27) mmol/L ABG Total CO2 32 H (23-27) mmol/L ABG O2 Saturation 77 L* (95-100) % ABG Base Excess 3.0 (-2-3) mmol/L FiO2 30 Sodium 124 L (137-145) mmol/L Potassium 4.0 (3.4-5.1) mmol/L Chloride 86 L (98-107) mmol/L Carbon Dioxide 28 (22-32) mmol/L BUN 12 (7-17) mg/dL Creatinine 0.71 (0.52-1.04) mg/dL Estimated GFR > 60 (>60) mL/min BUN/Creatinine Ratio 16.9 (6-22) Glucose 163 H (80-110) mg/dL Lactate 1.8 (0.7-2.1) mmol/L Calcium 9.1 (8.4-10.2) mg/dL Total Bilirubin 0.8 (0.2-1.3) mg/dL AST 58 H (14-36) IU/L ALT 22 (<35) IU/L Alkaline Phosphatase 84 (38-126) U/L Total Creatine Kinase 61 (30-135) U/L Troponin I < 0.012 (0.01-0.034) ng/mL NT-Pro-B Natriuret Pep 3990 H (<125) pg/mL Total Protein 8.0 (6.3-8.2) g/dL Albumin 4.1 (3.5-5.0) g/dL Globulin 3.9 (1.7-4.1) g/dL Albumin/Globulin Ratio 1.1 (1.0-2.8) Chlamy pneumoniae PCR Not detected (Not Detect) Adenovirus (PCR) Not detected (Not Detect) B.parapertussis DNA PCR Not detected (Not Detecte) Coronavirus OC43 (PCR) Not detected (Not Detect) Coronavirus HKU1 (PCR) Not detected (Not Detect) Coronavirus 229E (PCR) Not detected (Not Detect) SARS-CoV-2 (PCR) Not detected (Not Detecte) Coronavirus NL63 (PCR) Not detected (Not Detect) Human Metapneumovir PCR Not detected (Not Detect) Influ A (H1N1 Se[place]) PCR Detected H (Not Detect) Influenza Type B (PCR) Not detected (Not Detect) M. pneumoniae (PCR) Not detected (Not Detect) Parainfluenza 1 (PCR) Not detected (Not Detect) Parainfluenza 2 (PCR) Not detected (Not Detect) Parainfluenza 3 (PCR) Not detected (Not Detect) Parainfluenza 4 (PCR) Not detected (Not Detect) RSV (PCR) Not detected (Not Detect) Entero/Rhino (PCR) Not detected (Not Detect) Imaging Data Chest x-ray: Radiologist's Impression: [address] [address] XRay Report Signed Patient: Arlene Tello MR#: [id number] : 1950 Acct:[id number] Age/Sex: 73 / F Date of Service: 05/18/23 Loc: ED Accession Number: [id number] Procedure: XR chest 1V Ordering Provider: Kiki Raymond D.O. PROCEDURE: XR CHEST 1V INDICATIONS: Shortness of breath TECHNIQUE: One view of the chest was acquired. COMPARISON: [facility], , XR CHEST 1V, 11/16/2020, 18:45. FINDINGS: Surgical changes and devices: None. Lungs and pleura: Increased pulmonary markings. Mediastinum: Mediastinal contours appear normal. Heart size is normal. Bones and chest wall: No suspicious bony lesions. Overlying soft tissues appear unremarkable. IMPRESSION: Increased pulmonary markings, suggestive of mild pulmonary edema. Dictated by: Miguel Sanchez M.D. on 05/18/2023 at 20:51 Approved by: Miguel Sanchez M.D. on 05/18/2023 at 20:51 ECG Data Attestation: I personally reviewed and interpreted this ECG as follows: Interpretation: Possibly sinus rhythm there is quite a bit of appears to be PVCs and maybe motion artifact making a little bit difficult to fully evaluate rate of 79 TN 194 QRS of 104 QTC 419. No clear consistent ST elevation throughout leads. MDM Narrative Medical decision making narrative: 73-year-old female in significant respiratory distress, patient's O2 quite low upon arrival some of this may have been contributed with the cold weather but she appears to be working quite hard and has significant wheezing. She is some trace edema but no other significant signs of fluid overload on examination. Patient was treated with steroids, nebs for recheck, patient did have some improvement. EKG, chest x-ray and labs and respiratory panel. Patient's lab workup reflect some fluid overload, BNP is 3900, chest x-ray shows some pulmonary edema. Renal functions appropriate but patient is hyponatremic with a sodium of 124 has been as low as 104 in the past. Patient's white counts appropriate 8.4 little bit of leftward shift platelets are 137 with a appropriate hemoglobin. Coags are negative. Glucose is appropriate 163- troponin. Respiratory panel is positive for influenza. Was noted workup patient appears to have some component of CHF and was given a dose of Lasix. Patient is also quite hypertensive as she is currently been placed on BiPAP after had improvement of aeration but still quite wheezy O2 is 92% but patient has significant work of breathing still was placed / with a rate of 18 30% FiO2 when she was initially placed on ABG shows a respiratory acidosis pH of 7.3 pCO2 of 60 PaO2 is 47 but there is some concern this might be venous is blood was quite dark and was difficult stick pulse ox is pulling at 94% and patient is coloration does not appear to have a PO2 of 47. Patient also received a dose of Ativan as she is quite claustrophobic, there was concern that she might not tolerate the BiPAP well but she is been doing well with it since. Plan for admission for acute hypoxic respiratory distress, CHF with likely COPD overlying, hyponatremia. Did discuss with patient she is full code. She has a friend at bedside who was present for this conversation. Call to tele hospitalist, Dr. Yu, accepts for admission. Noted blood pressure improved significantly with nitro paste for about 30 minutes in his 120 over 90s currently. Patient does seem to be tolerating CPAP well. Repeat ABG does appear improved with pH of 7.347 pCO2 of 52 PO2 of 71 and a bicarb of 29. Respiratory acidosis Critical Care Time Critical Care Time Critical Care Time: Yes Total Critical Care Time: 42 Attestation: The high probability of a clinically significant, sudden or life threatening deterioration of the [cardiac, pulm] system(s) required my full and direct attention, intervention and personal management. The aggregate critical care time was [42] minutes. This time is in addition to time spent performing reported procedures but includes the following: [x] Data Review and interpretation [x] Patient assessment and monitoring of vital signs [x] Documentation [x] Medication orders and management Discharge Plan Departure Patient Disposition: Admitted As Inpatient Clinical Impression: Acute respiratory distress, Acute CHF, Hyponatremia, Influenza A Admit Date/Time: 05/18/23 22:23 Admit Provider: Saroj Oviedo
--- NOTE | 2023-05-18 20:17 | DI.RAD.S_ITS ---
PROCEDURE: XR CHEST 1V INDICATIONS: Shortness of breath TECHNIQUE: One view of the chest was acquired. COMPARISON: [facility], CR, XR CHEST 1V, 11/16/2020, 18:45. FINDINGS: Surgical changes and devices: None. Lungs and pleura: Increased pulmonary markings. Mediastinum: Mediastinal contours appear normal. Heart size is normal. Bones and chest wall: No suspicious bony lesions. Overlying soft tissues appear unremarkable. IMPRESSION: Increased pulmonary markings, suggestive of mild pulmonary edema. Dictated by: Miguel Sanchez M.D. on 05/18/2023 at 20:51 Approved by: Miguel Sanchez M.D. on 05/18/2023 at 20:51
[2023-05-18] MEDS: ALBUTEROL/IPRATROPIUM 3 ML AMPUL INH ×3 (20:21→20:24)
[2023-05-18] MEDS: methylPREDNISolone 125 MG/2 ML VIAL IV (20:27)
[2023-05-18 20:38] LABS: Add Manual Diff / Slide Review NO; Basophils Absolute Auto 0 /uL (0-100); Basophils Percent Auto 0.2 % (0-2); Eosinophils Absolute Auto 0 /uL (0-450); Eosinophils Percent Auto 0.3 % (2-4); Hematocrit 35.1 % (36-46); Lymphocytes Absolute Auto 300 /uL (1100-4500); Mean Corpuscular HGB Conc 34.1 % (30-36); Mean Corpuscular Hemoglobin 30.8 PG (26-34); Mean Corpuscular Volume 90.2 fL (80-100); Monocytes Absolute Auto 500 /uL (0-900); Monocytes Percent Auto 6.2 % (3-14); Neutrophils Absolute Auto 7500 /uL (1500-7000); Neutrophils Percent Auto 89.3 % (50-75); Platelet Count 137 X10^3/uL (150-400); Red Blood Cell Count 3.89 X10^6/uL (4.0-5.2); Red Cell Distribution Width 15.1 % (11.6-14.8); White Blood Cell Count 8.4 X10^3/uL (4.5-11.0)
[2023-05-18 20:43] LABS: Prothrombin Time 11.8 SECONDS (10.1-12.7)
[2023-05-18] MEDS: ALBUTEROL 2.5 MG/3 ML NEB (ADULT) 10 MG INH (20:44)
[2023-05-18 20:46] LABS: Lactate (Lactic Acid) 1.8 mmol/L (0.7-2.1)
[2023-05-18 20:47] LABS: Alanine Aminotransferase 22 IU/L (<35); Albumin 4.1 g/dL (3.5-5.0); Albumin Globulin Ratio 1.1 (1.0-2.8); Alkaline Phosphatase 84 U/L (38-126); Aspartate Aminotransferase 58 IU/L (14-36); BUN Creatinine Ratio 16.9 (6-22); Bilirubin Total 0.8 mg/dL (0.2-1.3); Blood Urea Nitrogen 12 mg/dL (7-17); Calcium 9.1 mg/dL (8.4-10.2); Carbon Dioxide 28 mmol/L (22-32); Chloride 86 mmol/L (98-107); Creatine Kinase 61 U/L (30-135); Estimated Glomerular Filt Rate > 60 mL/min (>60); Globulin 3.9 g/dL (1.7-4.1); Glucose 163 mg/dL (80-110); HEMOLYSIS 23 (0-50); Sodium 124 mmol/L (137-145)
[2023-05-18 20:51] LABS: PTT Partial Thromboplastin Tim 29 SECONDS (26-36)
[2023-05-18 20:59] LABS: NT-proBNP (BNP-Adult 18+) 3990 pg/mL (<125); Troponin I < 0.012 ng/mL (0.01-0.034)
--- NOTE | 2023-05-18 21:00 | PC.NURSE ---
Rt had removed neb treatment. Pt immediately dropped to 76% on RA. Rt placed on continuous neb. Spo2 increased back to high 90s.
[2023-05-18] MEDS: FUROSEMIDE 40 MG/4 ML VIAL IV (21:18)
[2023-05-18] MEDS: LORazepam 2 MG/ML INJ 0.5 MG IV (21:18)
[2023-05-18] MEDS: NITROGLYCERIN OINT 1 INCH/GM OINT...G. 0.5 INCH TOP (21:20)
[2023-05-18 21:39] LABS: Adenovirus Not Detected (Not Detect); B. parapertussis Not Detected (Not Detecte); Bordetella pertussis Not Detected (Not Detect); Chlamydophila pneumoniae Not Detected (Not Detect); Coronavirus 229E Not Detected (Not Detect); Coronavirus HKU1 Not Detected (Not Detect); Coronavirus NL 63 Not Detected (Not Detect); Coronavirus OC43 Not Detected (Not Detect); Human Metapneumovirus Not Detected (Not Detect); Human Rhinovirus/Enterovirus Not Detected (Not Detect); Influenza A H1-2009 Detected (Not Detect); Influenza B Not Detected (Not Detect); Mycoplasma pneumoniae Not Detected (Not Detect); Parainfluenza Virus 1 Not Detected (Not Detect); Parainfluenza Virus 2 Not Detected (Not Detect); Parainfluenza Virus 3 Not Detected (Not Detect); Parainfluenza Virus 4 Not Detected (Not Detect); Respiratory Syncytial Virus Not Detected (Not Detect); SARS- CoV-2 Not Detected (Not Detecte)
[2023-05-18 21:41] LABS: PCO2 ABG 60.8 mmHg (35-45)
[2023-05-18 21:42] LABS: HCO3 ABG 30 mmol/L (23-27); PO2 ABG 47 mmHg (80-100); TCO2 ABG 32 mmol/L (23-27)
[2023-05-18 21:43] LABS: Allen Test for ABG Passed? Yes, Passed; Blood Gas Collection Site Left Radial; Fractionated Inspired Oxygen 30; Oxygen Saturation ABG 77 % (95-100)
[2023-05-18] MEDS: OSELTAMIVIR 75 MG CAPSULE PO (22:37)
--- NOTE | 2023-05-18 22:39 | PC.NURSE ---
BP down to 109/54, nitro paste removed, provider aware.
[2023-05-18 22:51] LABS: PCO2 ABG 52.9 mmHg (35-45); PO2 ABG 71 mmHg (80-100); pH ABG 7.34 (7.35-7.45)
[2023-05-18 22:52] LABS: Allen Test for ABG Passed? Yes, Passed; Blood Gas Collection Site Right Radial; Fractionated Inspired Oxygen 30; HCO3 ABG 29 mmol/L (23-27); Oxygen Saturation ABG 93 % (95-100); TCO2 ABG 31 mmol/L (23-27)
[2023-05-19] VITALS (41 sets, daily range): BP systolic 125–198; BP diastolic 63–101; PULSE 66–95; RESP 18–52; TEMP 36.6–37.3; O2SAT 89–99
--- NOTE | 2023-05-19 00:07 | P.HP_ITS ---
History of Present Illness History of Present Illness Date Patient Seen: 05/18/23 Chief complaint: unable to breathe Narrative: 73 y/o smoker, with likely COPD, presented to ED with worsening shortness of breath, wheezing and generalized weakness, over 2-3 previous days. She was using albuterol MDI at home. In ED hypoxemic, failing mask, started on BiPAP (12/6, 30%). Influenza positive, hyponatremic with acute CHF and uncontrolled HTN. [facility] Medical History Alcoholism Continuous tobacco abuse Hypertension Social History household members: none Smoking Status: Current every day smoker Meds Home Medications and Allergies Allergies Allergy/AdvReac Type Severity Reaction Status Date / Time Cefazolin Allergy Unknown Uncoded 10/12/17 13:07 SULFA (sulfonamide) Allergy Unknown Uncoded 10/12/17 13:07 Tetracycline Allergy Unknown Uncoded 10/12/17 13:07 Zolpidem AdvReac Unknown Uncoded 10/12/17 13:07 Review of Systems Review of Systems Narrative: No chills Generalized weakness Cardiovascular Comments: Without chest pain or palpitations Respiratory Comments: Short of breath Wheezing Psychiatric Comments: Anxious Exam Vital Signs (past 8 hours): - 05/18/23 20:08 05/18/23 20:13 05/18/23 20:14 Temperature 98 F Pulse Rate 77 81 79 Respiratory Rate 32 H Blood Pressure 207/109 H Pulse Oximetry 69 L 92 97 Oxygen Delivery Method Room Air 05/18/23 20:14 05/18/23 20:25 05/18/23 20:25 Temperature Pulse Rate 77 Respiratory Rate 25 H Blood Pressure 207/109 H 180/85 H Pulse Oximetry 100 Oxygen Delivery Method 05/18/23 20:30 05/18/23 20:36 05/18/23 20:36 Temperature Pulse Rate 81 81 Respiratory Rate 28 H 26 H Blood Pressure 211/97 H Pulse Oximetry 99 98 Oxygen Delivery Method 05/18/23 21:00 05/18/23 21:01 05/18/23 21:01 Temperature Pulse Rate 89 92 H Respiratory Rate 40 H 49 H Blood Pressure 183/133 H Pulse Oximetry 99 99 Oxygen Delivery Method 05/18/23 21:20 05/18/23 21:30 05/18/23 21:30 Temperature Pulse Rate 98 H 97 H Respiratory Rate 29 H Blood Pressure 183/133 H 166/77 H Pulse Oximetry 92 Oxygen Delivery Method BiPAP 05/18/23 22:00 05/18/23 22:00 05/18/23 22:30 Temperature Pulse Rate 86 78 Respiratory Rate 20 26 H Blood Pressure 141/66 H Pulse Oximetry 94 93 Oxygen Delivery Method 05/18/23 22:30 05/18/23 22:31 05/18/23 22:50 Temperature Pulse Rate Respiratory Rate Blood Pressure 109/54 L 132/65 Pulse Oximetry Oxygen Delivery Method BiPAP 05/18/23 22:50 05/18/23 22:57 05/18/23 22:57 Temperature Pulse Rate 81 86 Respiratory Rate 30 H 23 Blood Pressure 164/77 H Pulse Oximetry Oxygen Delivery Method 05/18/23 23:00 05/18/23 23:00 05/19/23 00:00 Temperature Pulse Rate 85 Respiratory Rate 24 Blood Pressure 173/81 H 133/63 Pulse Oximetry 99 Oxygen Delivery Method 05/19/23 00:00 Temperature 98.6 F Pulse Rate 72 Respiratory Rate 34 H Blood Pressure Pulse Oximetry 93 Oxygen Delivery Method Oxygen Delivery Method BiPAP Narrative Exam Narrative: Sitting in bed with BiPAP on Resp Other: Wheezing, Rhonci Decreased sounds over bases Cardio Other: RRR, EDD at LSB b/l leg swelling GI Other: Not distended, not tender Skin Other: peripheral cyanosis- hands Neuro Other: without deficits Psych Other: alert, oriented flat affect Objective Labs 05/18/23 20:28 05/18/23 20:28 Labs: Laboratory Results - last 24 hr 05/18/23 05/18/23 05/18/23 20:28 21:04 22:35 WBC 8.4 RBC 3.89 L Hgb 12.0 Hct 35.1 L MCV 90.2 MCH 30.8 MCHC 34.1 RDW 15.1 H Plt Count 137 L Neut % (Auto) 89.3 H Lymph % (Auto) 4.0 L [place] % (Auto) 6.2 Eos % (Auto) 0.3 L Baso % (Auto) 0.2 Neut # (Auto) 7500 H Lymph # (Auto) 300 L [place] # (Auto) 500 Eos # (Auto) 0 Baso # (Auto) 0 PT 11.8 INR 1.0 APTT 29 ABG Sample Site Left radial Right radial ABG pH 7.30 L 7.34 L ABG pCO2 60.8 H 52.9 H ABG pO2 47 L* 71 L ABG HCO3 30 H 29 H ABG Total CO2 32 H 31 H ABG O2 Saturation 77 L* 93 L ABG Base Excess 3.0 3.0 FiO2 30 30 Sodium 124 L Potassium 4.0 Chloride 86 L Carbon Dioxide 28 BUN 12 Creatinine 0.71 Estimated GFR > 60 BUN/Creatinine Ratio 16.9 Glucose 163 H Lactate 1.8 Calcium 9.1 Total Bilirubin 0.8 AST 58 H ALT 22 Alkaline Phosphatase 84 Total Creatine Kinase 61 Troponin I < 0.012 NT-Pro-B Natriuret Pep 3990 H Total Protein 8.0 Albumin 4.1 Globulin 3.9 Albumin/Globulin Ratio 1.1 Chlamy pneumoniae PCR Not detected Adenovirus (PCR) Not detected B.parapertussis DNA PCR Not detected Coronavirus OC43 (PCR) Not detected Coronavirus HKU1 (PCR) Not detected Coronavirus 229E (PCR) Not detected SARS-CoV-2 (PCR) Not detected Coronavirus NL63 (PCR) Not detected Human Metapneumovir PCR Not detected Influ A (H1N1 Seas) PCR Detected H Influenza Type B (PCR) Not detected M. pneumoniae (PCR) Not detected Parainfluenza 1 (PCR) Not detected Parainfluenza 2 (PCR) Not detected Parainfluenza 3 (PCR) Not detected Parainfluenza 4 (PCR) Not detected RSV (PCR) Not detected Entero/Rhino (PCR) Not detected Assessment & Plan Assessment and plan (1) Acute hypoxemic respiratory failure: Status: Acute Plan: Multifactorial - Influenza / COPD exacerbation / CHF BiPAP for now - comfortable on 06/08, 30% Solumedrol, albuterol, DuoNeb PPI for GI prophylaxis (2) Influenza A: Status: Acute Plan: Tamiflu (3) Acute CHF: Status: Acute Plan: Likely due to severe HTN Lasix 40 ivp given in ED, to continue with 40 mg po daily - daily weights, I&O, echo - BMP / BNP in am - w/o evidence of ACS (4) Hyponatremia: Status: Acute Plan: Could be from CHF / hypervolemic, from Influenza and significant daily beer intake BMP in am - started on lasix (5) Hypertension: Status: Acute Plan: Severe, likely cause of CHF No home medications verified Started Metoprolol 25 mg bid, prn hydralazine. She had NTG paste for a couple of hours and was given 40 of lasix (6) Continuous tobacco abuse: Status: Acute Plan: nicotine patch (7) Alcoholism: Status: Acute Plan: on average 7-9 beers daily, w/o withdrawals in the past
[2023-05-19 00:17] LABS: MRSA (Nasal) PCR Not Detected (Not Detect)
[2023-05-19] MEDS: ACETAMINOPHEN 325 MG TABLET 650 MG PO ×2 (04:20→14:31)
--- NOTE | 2023-05-19 07:45 | P.PN_ITS ---
Subjective Subjective Interval history: Patient still with wet cough, but O2 down to 2L NC. She is requesting her home Breo-Ellipta to use. Said she did not get a flu shot this year yet. Exam Vital Signs (past 8 hours): - 05/19/23 00:00 05/19/23 00:00 05/19/23 00:59 Temperature 98.6 F Pulse Rate 72 70 Respiratory Rate 34 H 34 H Blood Pressure 133/63 Pulse Oximetry 93 96 Oxygen Flow Rate Fraction of Inspired Oxygen 05/19/23 01:00 05/19/23 01:00 05/19/23 01:10 Temperature Pulse Rate 69 Respiratory Rate 30 H Blood Pressure 149/70 H Pulse Oximetry 95 Oxygen Flow Rate Fraction of Inspired Oxygen 30 05/19/23 02:00 05/19/23 02:01 05/19/23 02:01 Temperature Pulse Rate 79 79 Respiratory Rate 28 H 32 H Blood Pressure 169/86 H Pulse Oximetry 94 93 Oxygen Flow Rate Fraction of Inspired Oxygen 05/19/23 03:00 05/19/23 03:00 05/19/23 04:00 Temperature Pulse Rate 69 Respiratory Rate 32 H Blood Pressure 143/69 H 164/77 H Pulse Oximetry 94 Oxygen Flow Rate Fraction of Inspired Oxygen 05/19/23 04:00 05/19/23 05:00 05/19/23 05:00 Temperature 98.4 F Pulse Rate 70 69 Respiratory Rate 22 24 Blood Pressure 151/71 H Pulse Oximetry 95 96 Oxygen Flow Rate 2 Fraction of Inspired Oxygen 05/19/23 06:00 05/19/23 06:06 05/19/23 06:06 Temperature Pulse Rate 71 73 Respiratory Rate 30 H 30 H Blood Pressure 178/82 H Pulse Oximetry 95 93 Oxygen Flow Rate 2 Fraction of Inspired Oxygen Fraction of Inspired Oxygen 30 Oxygen Delivery Method BiPAP Oxygen Flow Rate 2 Narrative Exam Narrative: Sitting in bed with frequent coughing Resp Other: Wheezing, Rhonchi in R side Decreased sounds diffusely Cardio Other: RRR, EDD at LSB b/l leg swelling GI Other: Not distended, not tender Skin Other: peripheral cyanosis- hands Neuro Other: without deficits Psych Other: alert, oriented flat affect Objective Labs 05/19/23 10:15 05/19/23 10:15 Labs: Laboratory Results - last 24 hr 05/18/23 05/18/23 05/18/23 20:28 21:04 22:35 WBC 8.4 RBC 3.89 L Hgb 12.0 Hct 35.1 L MCV 90.2 MCH 30.8 MCHC 34.1 RDW 15.1 H Plt Count 137 L Neut % (Auto) 89.3 H Lymph % (Auto) 4.0 L [place] % (Auto) 6.2 Eos % (Auto) 0.3 L Baso % (Auto) 0.2 Neut # (Auto) 7500 H Lymph # (Auto) 300 L [place] # (Auto) 500 Eos # (Auto) 0 Baso # (Auto) 0 PT 11.8 INR 1.0 APTT 29 ABG Sample Site Left radial Right radial ABG pH 7.30 L 7.34 L ABG pCO2 60.8 H 52.9 H ABG pO2 47 L* 71 L ABG HCO3 30 H 29 H ABG Total CO2 32 H 31 H ABG O2 Saturation 77 L* 93 L ABG Base Excess 3.0 3.0 FiO2 30 30 Sodium 124 L Potassium 4.0 Chloride 86 L Carbon Dioxide 28 BUN 12 Creatinine 0.71 Estimated GFR > 60 BUN/Creatinine Ratio 16.9 Glucose 163 H Lactate 1.8 Calcium 9.1 Total Bilirubin 0.8 AST 58 H ALT 22 Alkaline Phosphatase 84 Total Creatine Kinase 61 Troponin I < 0.012 NT-Pro-B Natriuret Pep 3990 H Total Protein 8.0 Albumin 4.1 Globulin 3.9 Albumin/Globulin Ratio 1.1 Nasal Screen MRSA (PCR) Chlamy pneumoniae PCR Not detected Adenovirus (PCR) Not detected B.parapertussis DNA PCR Not detected Coronavirus OC43 (PCR) Not detected Coronavirus HKU1 (PCR) Not detected Coronavirus 229E (PCR) Not detected SARS-CoV-2 (PCR) Not detected Coronavirus NL63 (PCR) Not detected Human Metapneumovir PCR Not detected Influ A (H1N1 Seas) PCR Detected H Influenza Type B (PCR) Not detected M. pneumoniae (PCR) Not detected Parainfluenza 1 (PCR) Not detected Parainfluenza 2 (PCR) Not detected Parainfluenza 3 (PCR) Not detected Parainfluenza 4 (PCR) Not detected RSV (PCR) Not detected Entero/Rhino (PCR) Not detected 05/18/23 23:00 WBC RBC Hgb Hct MCV MCH MCHC RDW Plt Count Neut % (Auto) Lymph % (Auto) [place] % (Auto) Eos % (Auto) Baso % (Auto) Neut # (Auto) Lymph # (Auto) [place] # (Auto) Eos # (Auto) Baso # (Auto) PT INR APTT ABG Sample Site ABG pH ABG pCO2 ABG pO2 ABG HCO3 ABG Total CO2 ABG O2 Saturation ABG Base Excess FiO2 Sodium Potassium Chloride Carbon Dioxide BUN Creatinine Estimated GFR BUN/Creatinine Ratio Glucose Lactate Calcium Total Bilirubin AST ALT Alkaline Phosphatase Total Creatine Kinase Troponin I NT-Pro-B Natriuret Pep Total Protein Albumin Globulin Albumin/Globulin Ratio Nasal Screen MRSA (PCR) Not detected Chlamy pneumoniae PCR Adenovirus (PCR) B.parapertussis DNA PCR Coronavirus OC43 (PCR) Coronavirus HKU1 (PCR) Coronavirus 229E (PCR) SARS-CoV-2 (PCR) Coronavirus NL63 (PCR) Human Metapneumovir PCR Influ A (H1N1 Seas) PCR Influenza Type B (PCR) M. pneumoniae (PCR) Parainfluenza 1 (PCR) Parainfluenza 2 (PCR) Parainfluenza 3 (PCR) Parainfluenza 4 (PCR) RSV (PCR) Entero/Rhino (PCR) PFSH Medical History Alcoholism Continuous tobacco abuse Hypertension Social History household members: none Smoking Status: Current every day smoker Assessment & Plan Assessment and plan (1) Acute hypoxemic respiratory failure: Status: Acute Plan: Multifactorial - Influenza / COPD exacerbation / CHF Now weaned off Bipap to 2L NC Solumedrol, home Breo-ellipta, DuoNeb PPI for GI prophylaxis Lasix 40 IV daily (2) Influenza A: Status: Acute Plan: Tamiflu x5 days (3) Acute CHF: Qualifiers: Heart failure type: diastolic Qualified Code(s): I50.31 - Acute diastolic (congestive) heart failure Status: Acute Plan: Likely due to severe HTN Lasix 40 mg IV daily - daily weights, I&O - w/o evidence of ACS - echo with EF 50-55%, diastolic relaxation abnormality, RVSP 46 indicating pulm HTN (4) Hyponatremia: Status: Acute Plan: 124 on admit. Could be from CHF / hypervolemic, from Influenza and significant daily beer intake BMP daily - started on lasix - improving to 126 (5) Hypertension: Status: Acute Plan: Severe, likely cause of CHF Continue home lisinopril and amlodipine Started Metoprolol 25 mg bid, prn hydralazine. Hold home metoprolol XL 300 due to potential bronchoconstriction (6) Continuous tobacco abuse: Status: Acute Plan: nicotine patch (7) Alcoholism: Status: Acute Plan: on average 7-9 beers daily, w/o withdrawals in the past Assessment & Plan narrative: Dispo: 2-3 days to improve flu and resp failure.
[2023-05-19] MEDS: methylPREDNISolone 125 MG/2 ML VIAL 60 MG IV ×2 (07:49→19:57)
[2023-05-19] MEDS: PANTOPRAZOLE DR 40 MG TABLET PO (07:49)
[2023-05-19] MEDS: guaiFENesin ER 600 MG TAB PO ×2 (08:10→19:53)
[2023-05-19] MEDS: ENOXAPARIN 30 MG/0.3 ML SYRINGE SUBCUT (08:10)
[2023-05-19] MEDS: FUROSEMIDE 40 MG/4 ML VIAL IV (08:10)
[2023-05-19] MEDS: METOPROLOL IR 25 MG TABLET PO ×2 (08:10→19:54)
[2023-05-19] MEDS: OSELTAMIVIR 75 MG CAPSULE PO ×2 (08:10→19:52)
[2023-05-19] MEDS: ALBUTEROL/IPRATROPIUM 3 ML AMPUL INH (09:19)
[2023-05-19 11:04] LABS: Add Manual Diff / Slide Review NO; Basophils Absolute Auto 0 /uL (0-100); Basophils Percent Auto 0.1 % (0-2); Eosinophils Absolute Auto 0 /uL (0-450); Hematocrit 31.1 % (36-46); Lymphocytes Absolute Auto 300 /uL (1100-4500); Lymphocytes Percent Auto 3.9 % (25-40); Mean Corpuscular HGB Conc 35.2 % (30-36); Mean Corpuscular Hemoglobin 31.4 PG (26-34); Mean Corpuscular Volume 89.3 fL (80-100); Monocytes Absolute Auto 100 /uL (0-900); Monocytes Percent Auto 1.6 % (3-14); Neutrophils Absolute Auto 6200 /uL (1500-7000); Neutrophils Percent Auto 94.4 % (50-75); Platelet Count 131 X10^3/uL (150-400); Red Blood Cell Count 3.49 X10^6/uL (4.0-5.2); Red Cell Distribution Width 14.9 % (11.6-14.8); White Blood Cell Count 6.5 X10^3/uL (4.5-11.0)
[2023-05-19 11:25] LABS: BUN Creatinine Ratio 19.1 (6-22); Blood Urea Nitrogen 13 mg/dL (7-17); Calcium 9.2 mg/dL (8.4-10.2); Carbon Dioxide 37 mmol/L (22-32); Chloride 86 mmol/L (98-107); Estimated Glomerular Filt Rate > 60 mL/min (>60); Glucose 167 mg/dL (80-110); HEMOLYSIS < 15 (0-50); Magnesium 1.4 mg/dL (1.6-2.3); Potassium 3.7 mmol/L (3.4-5.1); Sodium 126 mmol/L (137-145)
[2023-05-19 11:27] LABS: NT-proBNP (BNP-Adult 18+) 4900 pg/mL (<125)
[2023-05-19] MEDS: MAGNESIUM SULFATE 4 GM/100 ML PIGGYBACK IV (11:59)
[2023-05-19] MEDS: NICOTINE 21 MG PATCH TOP (11:59)
[2023-05-19] MEDS: NYSTATIN POWDER 15GM 1 APPLIC TOP (14:19)
[2023-05-19] MEDS: HYDRALAZINE 20 MG/ML VIAL 10 MG IV (14:20)
--- NOTE | 2023-05-19 15:15 | PT.IIE ---
Current Diagnoses Hypo-osmolality and hyponatremia (05/18/23) Alcohol dependence, uncomplicated (05/18/23) Essential (primary) hypertension (05/18/23) Acute diastolic (congestive) heart failure (05/18/23) Heart failure, unspecified (05/18/23) Influenza due to other identified influenza virus with other respiratory manifestations (05/18/23) Acute respiratory failure with hypoxia (05/18/23) Tobacco use (05/18/23) Medical History (Last Reviewed 05/19/23 @ 00:15 by Saroj Yu MD) Alcoholism Continuous tobacco abuse Hypertension Physical Therapy Inpatient Evaluation/Re-Eval M1 PT/OT-IP Prior Functional Status Start: 05/19/23 17:27 Freq: NEEDED Status: Active Protocol: Document 05/19/23 17:28 AB (Rec: 05/19/23 17:49 AB [id number]) Medical Review Prior Functional Status Medical History Reviewed Yes Communication Pt is able to express needs. Mobility and Gait Pt reports she uses a 2 wheeled cart to get around her house (described as similar to grocery cart). Activities of Daily Living and IADL's IND with ADLs and IADLs, though she is limited currently because she has not had propane for her house for the last several months. Social History Household Members none Living Arrangements House Number of Floors (Floors) One Floor Number of Stairs To Enter/Railing? 3 steps, right hand rail Home Environment Standard Height Toilet,Walk in Shower Home Equipment Grab Bars Near Toilet Additional Social History Comment Pt reports she has a friend who checks on her and her son lives across [facility]. M1 PT/OT-IP Prior Functional Status Start: 05/19/23 17:27 Freq: NEEDED Status: Active Protocol: Document 05/19/23 17:28 AB (Rec: 05/19/23 17:49 AB [id number]) Medical Review Prior Functional Status Medical History Reviewed Yes Communication Pt is able to express needs. Mobility and Gait Pt reports she uses a 2 wheeled cart to get around her house (described as similar to grocery cart). Activities of Daily Living and IADL's IND with ADLs and IADLs, though she is limited currently because she has not had propane for her house for the last several months. Social History Household Members none Living Arrangements House Number of Floors (Floors) One Floor Number of Stairs To Enter/Railing? 3 steps, right hand rail Home Environment Standard Height Toilet,Walk in Shower Home Equipment Grab Bars Near Toilet Additional Social History Comment Pt reports she has a friend who checks on her and her son lives across [facility]. M2 PT-IP Current Condition Start: 05/19/23 17:27 Freq: NEEDED Status: Active Protocol: Document 05/19/23 17:28 AB (Rec: 05/19/23 17:49 AB [id number]) Physical Therapy Current Condition Current Condition Evaluation Date 05/19/23 Treatment Diagnosis acute hypoxemic respiratory failure; impaired gait and mobility Onset Date 05/18/23 M3 PT-IP Subjective Start: 05/19/23 17:27 Freq: NEEDED Status: Active Protocol: Document 05/19/23 17:28 AB (Rec: 05/19/23 17:49 AB [id number]) Subjective Physical Therapy Visit Type Type Initial Evaluation Visit Start Time 14:44 Visit Stop Time 15:15 Total Visit Minutes 31 Notes PT and OT eval performed concurrently. Physical Therapy Visit Comments Patient Comments Pt presents seated in chair and is agreeable to therapy evaluation. Therapy Pain Assessment Pain When Pain Assessed At Rest Pain Present Pain Present Denied Pain M4 PT-IP Mobility and Gait Start: 05/19/23 17:27 Freq: NEEDED Status: Active Protocol: Document 05/19/23 17:28 AB (Rec: 05/19/23 17:49 AB [id number]) PT-Bed Mobility Assessment Rolling Type of Rolling Roll to Left Level of Assist Standby Assistance Sit to Supine Sit to Supine Standby Assistance Scooting Scooting to Edge of Bed Standby Assistance PT-Transfer Assessment Sit to and From Stand Sit to and from Stand Standby Assistance,Use of Upper Extremities Equipment Transfer Assistive Device Gait Belt,Front Wheeled Walker Transfers Transfer Destination Bed Transfer Technique Stand Step Pivot Transfer Ability Level of Assist Standby Assistance,Use of Upper Extremities Comments Mobility Comments After subjective portion of evaluation, the pt is agreeable to perform bed mobility. While sitting she dons and doff socks for OT eval, but demonstrates functional UE and LE mobility. The pt then performs STS without use of FWW, but uses armrests to pushup from. In standing she is able to take steps towards the bed but becomes short of breath and requires to sit on bed. The pt then then requests HOB to be elevated to make it easier, however PT and OT educate pt on keeping bed flat for improved positioning and to evaluate her level of function . The pt rolls left to get to semi supine position, but immediately request HOB to be elevated, as she is feeling SOB. She was assisted to a comfortable position, with all needs met, call light within reach, and bed alarm set. Of note, the pt requires constant education and re-education, as well as redirection to task at hand, due to poor recall and confusion. RN was notified of findings. Gait Assessment Comments Gait Comments Pt only took lateral steps today. Stair Climbing Assessment Comments Stair Climbing Comments NT due to weakness and fatigue . PT-Balance Assessment Sitting Balance and Reactions Static Sitting Balance Ability Good Dynamic Sitting Balance Ability Good Standing Balance and Reactions Static Standing Balance Ability Good Dynamic Standing Balance Ability Fair M5 PT-IP Objective Assessments Start: 05/19/23 17:27 Freq: NEEDED Status: Active Protocol: Document 05/19/23 17:28 AB (Rec: 05/19/23 17:49 AB [id number]) Orientation Orientation/Cognition Level of Alertness Confusional State Orientation Name,Situation Language Function Ability No Deficits Noted Safety Awareness Decreased Safety Awareness Memory Description Short Term Impaired Gross Range of Motion Upper Extremity ROM Assessment Within Functional Limits Lower Extremity ROM Assessment Within Functional Limits Strength Upper Extremity Strength Assessment Within Functional Limits Lower Extremity Strength Assessment Within Functional Limits M6 PT-IP Treatment Start: 05/19/23 17:27 Freq: NEEDED Status: Active Protocol: Document 05/19/23 17:28 AB (Rec: 05/19/23 17:49 AB [id number]) Physical Therapy Treatment Education Education Provided Safety Brace Education Patient M7 PT-IP Assessment and Plan Start: 05/19/23 17:27 Freq: NEEDED Status: Active Protocol: Document 05/19/23 17:28 AB (Rec: 05/19/23 17:49 AB [id number]) PT Summary Assessment and Plan Potential Rehabilitation Potential Fair Status of Condition at Evaluation Stable Summary Impairments Strength,Balance,Cognition,Bed Mobility,Transfers,Gait, Activity Tolerance Assessment Summary Arlene Tello is a 73 year old female patient presenting with impaired gait and mobility secondary to acute hypoxemic respiratory failure. The pt currently requires SBA for functional mobility performed today including STS, transfer and sit<>supine. She was unable to perform further mobility in part due to fatigue and difficulty following directions and maintaining attention to tasks . Based on the pt's current level of function, PT recommends discharge to home with 24/7 assistance and HHPT to improve her level of function. However discharge disposition may change based on progress. The pt would benefit from skilled PT to improve these impairments. Goals Bed Mobility Goal Independent Transfer Goal Independent,Front Wheeled Walker Gait Goal Independent,Front Wheel Walker Gait Distance 200 Other Goals Pt to transfer independently with LRAD or no AD to show improving functional mobility. Pt to ambulate 200ft with LRAD or no AD to show improving tolerance to activity. Pt to ascend/descend 3 steps with right hand rail to show improving LE strength. Days to Meet Goals 10 Frequency of Treatment Frequency Of Treatment Once a Day Treatment Plan Physical Therapy Treatment Plan Bed Mobility Training,Transfer Training,Gait Training, Therapeutic Exercise,Balance Retraining,Discharge Planning, Hot or Cold Pack,Neuromuscular Re-ed,Coordination Retraining ,Manual Therapy Recommendations To Nursing Amount of Assist Needed 1 Person Assist Discharge Recommendations PT Discharge Recommendations Home with 24/7 Assist Available,Home Health Equipment Needed for Home Before FWW Discharge Transportation Needs at Discharge Private Vehicle,Wheelchair/ Cabulance
--- NOTE | 2023-05-19 15:28 | OT.IP.EVAL ---
Current Diagnoses Hypo-osmolality and hyponatremia (05/18/23) Alcohol dependence, uncomplicated (05/18/23) Essential (primary) hypertension (05/18/23) Acute diastolic (congestive) heart failure (05/18/23) Heart failure, unspecified (05/18/23) Influenza due to other identified influenza virus with other respiratory manifestations (05/18/23) Acute respiratory failure with hypoxia (05/18/23) Tobacco use (05/18/23) Past Medical History (Last Reviewed 05/19/23 @ 00:15 by Saroj Yu MD) Alcoholism Continuous tobacco abuse Hypertension Occupational Therapy Inpatient Evaluation/Re-Eval M1 PT/OT-IP Prior Functional Status Start: 05/19/23 17:27 Freq: NEEDED Status: Active Protocol: Document 05/19/23 17:28 AB (Rec: 05/19/23 17:49 AB [id number]) Medical Review Prior Functional Status Medical History Reviewed Yes Communication Pt is able to express needs. Mobility and Gait Pt reports she uses a 2 wheeled cart to get around her house (described as similar to grocery cart). Activities of Daily Living and IADL's IND with ADLs and IADLs, though she is limited currently because she has not had propane for her house for the last several months. Social History Household Members none Living Arrangements House Number of Floors (Floors) One Floor Number of Stairs To Enter/Railing? 3 steps, right hand rail Home Environment Standard Height Toilet,Walk in Shower Home Equipment Grab Bars Near Toilet Additional Social History Comment Pt reports she has a friend who checks on her and her son lives across [facility]. M2 OT-IP Current Condition Start: 05/19/23 17:27 Freq: Status: Active Protocol: Document 05/19/23 14:44 CCC (Rec: 05/19/23 18:00 [facility] [id number]) Occupational Therapy Current Condition Current Condition Evaluation Date 05/19/23 Treatment Diagnosis Acute hypoxic respiratory failure, INfluenza A Diagnosis Onset Date 05/18/23 M3 OT- IP Subjective and Pain Start: 05/19/23 17:27 Freq: Status: Active Protocol: Document 05/19/23 14:44 CCC (Rec: 05/19/23 18:00 [facility] [id number]) OT- Subjective Occupational Therapy Visit Type Type Initial Evaluation Visit Start Time 14:44 Visit Stop Time 15:28 Total Visit Minutes 44 Occupational Therapy Visit Comments Patient Comments Pt needing encouragement to get up for therapy evals. Patient/Caregiver Goals To go home. OT Pain Assessment Pain When Pain Assessed At Rest Pain Present Pain Present Pain Reported M4 OT- IP ADL's Start: 05/19/23 17:27 Freq: Status: Active Protocol: Document 05/19/23 14:44 [facility] (Rec: 05/19/23 18:00 [facility] [id number]) OT [id number] Comments OT Self-Feeding Comments Not at meal time. OT ADL-Grooming Comments OT Grooming Comments Not performed. OT ADL-Oral Care Comments Oral Care Comments Not performed OT ADL-Dressing General Eval Lower Body Dressing Ability Independent Comments OT Dressing Comments Pt able to micha/doff her socks while seated. OT ADL-Toileting Comments OT Toileting Comments Per nursing noted pt has been able to use to the bathroom with SBA. OT ADL-Bathing Comments OT Bathing Comments Not performed. Pt states just does a bird bath at home due to not having hot water available. M5 OT- IP IADL's Start: 05/19/23 17:27 Freq: Status: Active Protocol: Document 05/19/23 14:44 [facility] (Rec: 05/19/23 18:00 [facility] [id number]) OT-Instrumental Activities of Daily Living Deficits IADL Deficits Identified Deficits Home Safety Awareness Awareness of Need for Assistance at Home Decreased Awareness Home Safety Comments Pt very distracted, perseverates on needing to have more water, and insistent on her care. At this time due to decreased safety awareness and decreased functional cognition, pt would benefit from 24/7 available assist. M6 OT- IP Functional Cognition Start: 05/19/23 17:27 Freq: Status: Active Protocol: Document 05/19/23 14:44 [facility] (Rec: 05/19/23 18:00 [facility] [id number]) Cognitive Factors Limiting Selfcare Function Cognitive Ability Level of Alertness Confusional State Patient Orientation Name,Place Attention Span Ability Capable of Focused Attention, Unable to Focus,Unable to Sustain Attention Ability to Follow Commands Able to Follow One Step Commands with Increased Time, Able to Follow One Step Commands with Repetition Memory Description Short Term Impaired ,Working Impaired Safety Awareness Underestimates Need for Assistance Cognitive Comments Cognitive Assessment Comments Pt not able to remember how to use the call light to call for assist. Pt kept insisting that she uses her phone to call for assist at home. Pt would focus on looking at the PT standing on the left however while the OT was on her right. Pt needing lots of encouragement and redirections to follow commands at this time. Pt would greatly benefit from 24/ 7 available assist at this time. Not sure how close pt is to her baseline cognition. Per pt's chart, pt drinks 7-9 beers daily. Pt will benefit from a cognitive assessment hopefully as pt clears more. OT- Vision and Hearing OT- Vision Assessment Visual Acuity Glasses All The Time. Pt able to read the clock accurately M7 OT- IP Mobility and Balance Start: 05/19/23 17:27 Freq: Status: Active Protocol: Document 05/19/23 14:44 [facility] (Rec: 05/19/23 18:00 [facility] [id number]) OT- Bed Mobility Assessment Sit to Supine Sit to Supine Assist Standby Assistance OT-Transfer Assessment Sit to and From Stand Sit to and from Stand Standby Assistance Transfers Transfer Ability Standby Assistance Technique Transfer Destination Bed,Car Transfer Technique Stand Step Pivot Devices Transfer Assistive Devices None,Gait Belt,Front Wheeled Walker Comments Mobility Comments SBA and mainly assist for all tubing and cords for the pt during transfer from the chair to bed. Pt on 2l and started at 95% and dropped to 93% after getting back to bed. OT- Balance Assessment Sitting Balance and Reactions Static Sitting Balance Ability Normal Dynamic Sitting Balance Ability Good Standing Balance and Reactions Static Standing Balance Ability Good Dynamic Standing Balance Ability Fair M8 OT- IP Objective Assessments Start: 05/19/23 17:27 Freq: Status: Active Protocol: Document 05/19/23 14:44 [facility] (Rec: 05/19/23 18:00 [facility] [id number]) OT Gross Range of Motion Upper Extremity Range of Motion ROM Impairments grossly WFL for ADL needs OT Strength Comments Strength Comments NOt able to formally assess but at least 3+/5 throughout. M9 OT- IP Assessment and Plan Start: 05/19/23 17:27 Freq: Status: Active Protocol: Document 05/19/23 14:44 [facility] (Rec: 05/19/23 18:00 [facility] [id number]) OT Summary Assessment and Plan Potential Rehabilitation Potential Good Analytic Complexity at Evaluation Moderate Summary OT Impairments Pain,Balance,Functional Mobility,Grooming,Dressing, Toileting,Bathing,Toilet Transfers,Shower Transfers, Activity Tolerance Progress Towards Goals Slow Progress due to Pain,Slow Progress due to Medical Issues,Slow Progress due to Cognition Assessment Summary Pt MOD complexity and main barriers are pain, decreased activity tolerance, use of O2 at 2L, and has poor safety awareness for her needs at this time. Pt will benefit form 24/7 available assist and home health. Goals Self-Feeding Goal Independent Grooming Goal Independent Dressing Goal Independent Toileting Goal Independent Bathing Goal Independent Toilet Transfer Goal Independent Shower Transfer Goal Independent Days to Meet Goals 7 Frequency of Treatment Frequency Of Treatment Once a Day Treatment Plan OT Treatment Plan ADL Training,Functional Cognition Training,Functional Mobility,Patient/Family Education,Discharge Planning Discharge Recommendations OT Discharge Recommendations Home with 24/7 Assist Available,Home Health Transportation Needs at Discharge Private Vehicle
[2023-05-19] MEDS: BENZOCAINE/MENTHOL 1 LOZ PKT 1 EACH PO (15:41)
[2023-05-19] MEDS: ALBUTEROL 2.5 MG/3 ML NEB (ADULT) INH ×2 (15:41→20:02)
--- NOTE | 2023-05-19 18:25 | DI.CT.S_ITS ---
PROCEDURE: CT HEAD/BRAIN WO CON INDICATIONS: Mental status change TECHNIQUE: Noncontrast 4.5 mm thick angled axial sections acquired from the foramen magnum to the vertex, with coronal and sagittal reformats. For radiation dose reduction, the following was used: automated exposure control, adjustment of mA and/or kV according to patient size. COMPARISON: [facility], CT, CT HEAD/BRAIN WO CON, 11/16/2020, 16:15. FINDINGS: Image quality: Excellent. CSF spaces: Basal cisterns are patent. No extra-axial fluid collections. The ventricles are symmetric in size and shape. Brain: No intracranial bleeds or masses. There is cerebral volume loss for age, with resultant ventricular and sulcal prominence. There are periventricular and deep white matter chronic small vessel ischemic changes. There is intracranial internal carotid artery atherosclerosis. Skull and face: Calvarium and visualized facial bones appear intact, without suspicious lesions. Sinuses: Opacification of right mastoid air cells are seen. IMPRESSION: 1. No acute intracranial abnormalities. 2. Age related volume loss and extensive white matter chronic small vessel ischemic changes. 3. Suggestion of right-sided mastoiditis. Dictated by: Don Guallpa M.D. on 05/19/2023 at 18:57 Approved by: Don Guallpa M.D. on 05/19/2023 at 18:57
--- NOTE | 2023-05-19 19:07 | PC.NURSE ---
Day shift: Pt A&Ox3, unsure of day. Up to chairs for meals, using IS with minimal success. 2L NC saturation 96%-98%, BP elevated, PRN medication given as charted (See MAR). Pt up to shower with assist. C/o headache 5/10. Given PRN medication (See MAR). Pt resting with eyes closed. After dinner, pt c/o 8/10 headache. Upon assessment, pt's left pupil larger than right. Provider notified. Pt transported to [place] with this RN on monitor. Pt NSR, elevated BP, provider notified. Pt transported back to room 227, attached to monitor. NSR, BP 170/80, c/o light sensitivity which pt states is baseline prior to this hospitalization. Bed alarm active, call light within reach, care ongoing.
[2023-05-19] MEDS: OXYCODONE IR 5 MG TABLET PO (19:53)
[2023-05-19] MEDS: BENZONATATE 100 MG CAPSULE PO (19:53)
[2023-05-19] MEDS: VANCOMYCIN 1,500 MG/300 ML PIGGYBACK 200 MG IV (19:58)
[2023-05-19] MEDS: BUDESONIDE 0.5 MG/2 ML NEB INH (20:02)
[2023-05-19] MEDS: lisinopriL 20 MG TABLET 40 MG PO (20:03)
[2023-05-19] MEDS: GABAPENTIN 300 MG CAPSULE 600 MG PO (20:04)
[2023-05-19] MEDS: metroNIDAZOLE 500 MG TABLET PO (21:45)
[2023-05-19] MEDS: CEFEPIME 2 GM in SODIUM CHLORIDE 0.9% 100 ML IV (22:17)
[2023-05-20] VITALS (16 sets, daily range): BP systolic 115–194; BP diastolic 57–91; PULSE 63–96; RESP 13–76; TEMP 36.4–36.6; O2SAT 93–100
[2023-05-20] MEDS: OXYCODONE IR 5 MG TABLET PO (03:39)
[2023-05-20] MEDS: BENZONATATE 100 MG CAPSULE PO (03:39)
[2023-05-20] MEDS: ACETAMINOPHEN 325 MG TABLET 650 MG PO ×2 (03:39→16:49)
[2023-05-20] MEDS: ALBUTEROL 2.5 MG/3 ML NEB (ADULT) INH ×4 (03:56→19:48)
--- NOTE | 2023-05-20 04:15 | PC.NURSE ---
0330- Patient woke very upset and crying. She was concerned about her dog. She states she was supposed to take the dog across the street and now she is here and cannot do it. Patient reoriented to the hospital and she remembers her friend bringing her to the hospital yesterday. Patient has tremors at baseline and these are not increased, no hallucinations, no headache or sweats. This does not appear to be the start of ETOH withdrawl however patient will need close monitoring for signs and symptoms as she is a daily drinker. Patient lungs are coarse and she has a productive cough. Medicated per orders. Will monitor.
[2023-05-20 06:22] LABS: Add Manual Diff / Slide Review NO; Basophils Absolute Auto 0 /uL (0-100); Basophils Percent Auto 0.1 % (0-2); Eosinophils Absolute Auto 0 /uL (0-450); Eosinophils Percent Auto 0.1 % (2-4); Hematocrit 33.8 % (36-46); Hemoglobin 11.5 g/dL (12.0-16.0); Lymphocytes Absolute Auto 200 /uL (1100-4500); Lymphocytes Percent Auto 2.6 % (25-40); Mean Corpuscular HGB Conc 33.9 % (30-36); Mean Corpuscular Hemoglobin 30.8 PG (26-34); Mean Corpuscular Volume 90.6 fL (80-100); Monocytes Absolute Auto 300 /uL (0-900); Monocytes Percent Auto 4.4 % (3-14); Neutrophils Absolute Auto 6800 /uL (1500-7000); Neutrophils Percent Auto 92.8 % (50-75); Platelet Count 134 X10^3/uL (150-400); Red Blood Cell Count 3.73 X10^6/uL (4.0-5.2); Red Cell Distribution Width 14.8 % (11.6-14.8); White Blood Cell Count 7.4 X10^3/uL (4.5-11.0)
[2023-05-20] MEDS: PANTOPRAZOLE DR 40 MG TABLET PO (06:37)
[2023-05-20 06:55] LABS: BUN Creatinine Ratio 23.1 (6-22); Blood Urea Nitrogen 15 mg/dL (7-17); Calcium 9.2 mg/dL (8.4-10.2); Carbon Dioxide 36 mmol/L (22-32); Chloride 85 mmol/L (98-107); Estimated Glomerular Filt Rate > 60 mL/min (>60); Glucose 162 mg/dL (80-110); HEMOLYSIS < 15 (0-50); Potassium 3.4 mmol/L (3.4-5.1); Sodium 124 mmol/L (137-145)
[2023-05-20 06:56] LABS: Magnesium 2.1 mg/dL (1.6-2.3)
[2023-05-20] MEDS: AMLODIPINE 5 MG TABLET PO (08:13)
[2023-05-20] MEDS: GABAPENTIN 300 MG CAPSULE 600 MG PO ×2 (08:13→20:24)
[2023-05-20] MEDS: metroNIDAZOLE 500 MG TABLET PO ×3 (08:13→20:27)
[2023-05-20] MEDS: METOPROLOL IR 25 MG TABLET PO ×2 (08:13→20:24)
[2023-05-20] MEDS: methylPREDNISolone 125 MG/2 ML VIAL 60 MG IV ×2 (08:13→20:24)
[2023-05-20] MEDS: NICOTINE 21 MG PATCH TOP (08:13)
[2023-05-20] MEDS: guaiFENesin ER 600 MG TAB PO ×2 (08:13→20:25)
[2023-05-20] MEDS: ENOXAPARIN 40 MG/0.4 ML SYRINGE SUBCUT (08:14)
[2023-05-20] MEDS: ESCITALOPRAM 10 MG TABLET 5 MG PO (08:14)
[2023-05-20] MEDS: OSELTAMIVIR 75 MG CAPSULE PO ×2 (08:14→20:25)
[2023-05-20] MEDS: VANCOMYCIN 1,250 MG/250 ML PIGGYBACK 166.667 MG IV ×2 (08:14→20:24)
--- NOTE | 2023-05-20 08:38 | PM.PN.1 ---
Subjective Subjective Interval history: Patient feeling much better today. Able to take a shower. On only 1L NC now. Exam Vital Signs (past 8 hours): - 05/20/23 04:00 05/20/23 04:00 05/20/23 04:07 Temperature Pulse Rate 72 Respiratory Rate 46 H Blood Pressure 194/88 H 170/84 H Pulse Oximetry 100 Oxygen Flow Rate 05/20/23 04:07 05/20/23 06:00 05/20/23 07:47 Temperature 97.5 F L Pulse Rate 73 65 Respiratory Rate 28 H 13 Blood Pressure 162/91 H Pulse Oximetry 98 100 Oxygen Flow Rate 2.5 05/20/23 07:47 Temperature Pulse Rate 96 H Respiratory Rate Blood Pressure Pulse Oximetry 96 Oxygen Flow Rate Fraction of Inspired Oxygen 30 Oxygen Delivery Method Nasal Cannula Oxygen Flow Rate 2.5 Narrative Exam Narrative: Sitting in bed, NAD and appears comfortable Resp Other: Wheezing and rhonchi have resolved Decreased sounds diffusely Cardio Other: RRR, EDD at LSB b/l leg swelling GI Other: Not distended, not tender Skin Other: peripheral cyanosis- hands Neuro Other: without deficits Psych Other: alert, oriented flat affect Objective Labs 05/20/23 06:16 05/20/23 06:16 Labs: Laboratory Results - last 24 hr 05/19/23 05/20/23 10:15 06:16 WBC 6.5 7.4 RBC 3.49 L 3.73 L Hgb 11.0 L 11.5 L Hct 31.1 L 33.8 L MCV 89.3 90.6 MCH 31.4 30.8 MCHC 35.2 33.9 RDW 14.9 H 14.8 Plt Count 131 L 134 L Neut % (Auto) 94.4 H 92.8 H Lymph % (Auto) 3.9 L 2.6 L [place] % (Auto) 1.6 L 4.4 Eos % (Auto) 0.0 L 0.1 L Baso % (Auto) 0.1 0.1 Neut # (Auto) 6200 6800 Lymph # (Auto) 300 L 200 L [place] # (Auto) 100 300 Eos # (Auto) 0 0 Baso # (Auto) 0 0 Sodium 126 L 124 L Potassium 3.7 3.4 Chloride 86 L 85 L Carbon Dioxide 37 H 36 H BUN 13 15 Creatinine 0.68 0.65 Estimated GFR > 60 > 60 BUN/Creatinine Ratio 19.1 23.1 H Glucose 167 H 162 H Calcium 9.2 9.2 Magnesium 1.4 L 2.1 NT-Pro-B Natriuret Pep 4900 H [facility] Medical History Alcoholism Continuous tobacco abuse Hypertension Social History household members: none Smoking Status: Current every day smoker Assessment & Plan Assessment and plan (1) Acute hypoxemic respiratory failure: Status: Acute Plan: Multifactorial - Influenza / COPD exacerbation / CHF Now weaned off Bipap to 2L NC Solumedrol, home Breo-ellipta, DuoNeb PPI for GI prophylaxis Lasix now stopped down to 1L NC, home O2 eval ordered (2) Influenza A: Status: Acute Plan: Tamiflu x5 days (3) Acute CHF: Qualifiers: Heart failure type: diastolic Qualified Code(s): I50.31 - Acute diastolic (congestive) heart failure Status: Acute Plan: Likely due to severe HTN Lasix 40 mg IV given, now off - daily weights, I&O - w/o evidence of ACS - echo with EF 50-55%, diastolic relaxation abnormality, RVSP 46 indicating pulm HTN (4) Hyponatremia: Status: Acute Plan: 124 on admit. Could be from CHF / hypervolemic, from Influenza and significant daily beer intake BMP daily - started on lasix - now down to 124 - check urine sodium, may be dry after diuresis (5) Hypertension: Status: Acute Plan: Severe, likely cause of CHF Continue home lisinopril and amlodipine Started Metoprolol 25 mg bid, prn hydralazine. Hold home metoprolol XL 300 due to potential bronchoconstriction (6) Continuous tobacco abuse: Status: Acute Plan: nicotine patch (7) Alcoholism: Status: Acute Plan: on average 7-9 beers daily, w/o withdrawals in the past Assessment & Plan narrative: Dispo: Home in 1-2 days.
[2023-05-20] MEDS: BUDESONIDE 0.5 MG/2 ML NEB INH ×2 (09:17→19:48)
[2023-05-20] MEDS: CEFEPIME 2 GM in SODIUM CHLORIDE 0.9% 100 ML IV ×2 (09:34→21:42)
[2023-05-20] MEDS: POTASSIUM CHLORIDE 20 MEQ TAB 40 MEQ PO (09:34)
[2023-05-20] MEDS: BENZOCAINE/MENTHOL 1 LOZ PKT 1 EACH PO ×2 (09:34→16:49)
--- NOTE | 2023-05-20 11:40 | PT.IPTN ---
Current Diagnoses Hypo-osmolality and hyponatremia (05/18/23) Alcohol dependence, uncomplicated (05/18/23) Essential (primary) hypertension (05/18/23) Acute diastolic (congestive) heart failure (05/18/23) Heart failure, unspecified (05/18/23) Influenza due to other identified influenza virus with other respiratory manifestations (05/18/23) Acute respiratory failure with hypoxia (05/18/23) Tobacco use (05/18/23) Physical Therapy Treatment Note M2 PT-IP Current Condition Start: 05/19/23 17:27 Freq: NEEDED Status: Active Protocol: Document 05/19/23 17:28 AB (Rec: 05/19/23 17:49 AB [id number]) Physical Therapy Current Condition Current Condition Evaluation Date 05/19/23 Treatment Diagnosis acute hypoxemic respiratory failure; impaired gait and mobility Onset Date 05/18/23 M3 PT-IP Subjective Start: 05/19/23 17:27 Freq: NEEDED Status: Active Protocol: Document 05/20/23 11:42 AB(2) (Rec: 05/20/23 12:44 AB(2) [id number]) Subjective Physical Therapy Visit Type Type Treatment Note Visit Start Time 11:40 Visit Stop Time 12:10 Total Visit Minutes 30 Number of LOG CUT OFF SAWYER Visits 0 Physical Therapy Visit Comments Patient Comments agreeable to do PT M4 PT-IP Mobility and Gait Start: 05/19/23 17:27 Freq: NEEDED Status: Active Protocol: Document 05/20/23 11:42 AB(2) (Rec: 05/20/23 12:44 AB(2) [id number]) PT-Bed Mobility Assessment Supine to Sit Supine to Sit Maximum Assistance,Head of Bed Elevated,Bedrails Scooting Scooting to Edge of Bed Maximum Assistance PT-Transfer Assessment Sit to and From Stand Sit to and from Stand Minimal Assistance,1 Person Assistance,Use of Upper Extremities Equipment Transfer Assistive Device Gait Belt,Front Wheeled Walker Orthotic/Prosthetic Devices or Brace: No Transfers Transfer Destination Chair Transfer Technique ambulated Transfer Ability Level of Assist Contact Guard Assistance,1 Person Assistance,Use of Upper Extremities Comments Mobility Comments pt supine in bed and agreeable to do PT. O2 sat: 96-97% with 1L/min O2. completed supine to sit max A and max cues with HOB elevated and use of bed rail. pt stated that she sleeps on her recliner at home. pt also stated that she lives alone and one son lives in [facility] and another in [place] bu ther son calls and checks on her. pt requiring max A for scooting to EOB. sit to stand min A and cues and pt ambulated in room using FWW initially CGA but able to ambulate SBA midway with ambulation. pt completed ~ 125 ft of walking using FWW. pt agreed to sit up on the chair. O2 sat sitting after ambulation: 93%. cued for deep breathing and O2 sat increase to 96% immediately. positioned pt on the chair. call light and table placed within reach. NAC came in with pt's lunch tray. Left pt with NAC in room . Gait Assessment Gait Gait Assistance Required: Standby Assistance,Contact Guard Assist,1 Person Assist Distance (Feet) 125 Able to Maintain Weight Bearing Status Yes During Gait Assistive Devices Assistive Device Gait Belt,Front Wheeled Walker Orthotic/Prosthetic Devices or Brace: No Gait Deviations General Gait Pattern Decreased Stride Length, Decreased Feet Clearance Factors Limiting Gait Function Factors Limiting Gait Function Decreased Activity Tolerance, Decreased Strength,Poor Balance,Poor Safety Awareness, Respiratory Distress M5 PT-IP Objective Assessments Start: 05/19/23 17:27 Freq: NEEDED Status: Active Protocol: Document 05/19/23 17:28 AB (Rec: 05/19/23 17:49 AB [id number]) Orientation Orientation/Cognition Level of Alertness Confusional State Orientation Name,Situation Language Function Ability No Deficits Noted Safety Awareness Decreased Safety Awareness Memory Description Short Term Impaired Gross Range of Motion Upper Extremity ROM Assessment Within Functional Limits Lower Extremity ROM Assessment Within Functional Limits Strength Upper Extremity Strength Assessment Within Functional Limits Lower Extremity Strength Assessment Within Functional Limits M6 PT-IP Treatment Start: 05/19/23 17:27 Freq: NEEDED Status: Active Protocol: Document 05/20/23 11:42 AB(2) (Rec: 05/20/23 12:44 AB(2) [id number]) Physical Therapy Treatment Education Education Provided Safety M7 PT-IP Assessment and Plan Start: 05/19/23 17:27 Freq: NEEDED Status: Active Protocol: Document 05/20/23 11:42 AB(2) (Rec: 05/20/23 12:44 AB(2) [id number]) PT Summary Assessment and Plan Potential Rehabilitation Potential Fair Summary Impairments Pain,ROM,Strength,Balance, Coordination,Sensation,Tone, Cognition,Bed Mobility, Transfers,Gait,Activity Tolerance Progress Towards Goals Slow Progress due to Medical Issues,Slow Progress due to Activity Tolerance Assessment Summary pt requiring min A with sit to stand and CGA to SBA wtih ambulation using FWW. pt lives alone and will need assistance at home. d/c plan: SNF vs home with assist and home health services: depending on pt's progress. will continue to assess. Goals Bed Mobility Goal Independent Transfer Goal Independent,Front Wheeled Walker Gait Goal Independent,Front Wheel Walker Gait Distance 200 Other Goals Pt to transfer independently with LRAD or no AD to show improving functional mobility. Pt to amulate 200ft with LRAD or no AD to show improving tolerance to activity. Pt to ascend/descend 3 steps with right hand rail to show improving LE strength. Days to Meet Goals 10 Frequency of Treatment Frequency Of Treatment Once a Day Treatment Plan Physical Therapy Treatment Plan Bed Mobility Training,Transfer Training,Gait Training, Therapeutic Exercise,Balance Retraining,Discharge Planning, Hot or Cold Pack,Neuromuscular Re-ed,Coordination Retraining ,Manual Therapy Recommendations To Nursing Amount of Assist Needed 1 Person Assist Discharge Recommendations PT Discharge Recommendations Home with 24/01 Assist Available,Home Health,SNF Rehab Equipment Needed for Home Before FWW Discharge Transportation Needs at Discharge Private Vehicle,Wheelchair/ Cabulance
[2023-05-20 12:13] LABS: Hemoglobin A1C% w Est Avg Glu 5.6 % (4.0-6.0)
--- NOTE | 2023-05-20 13:40 | OT.IP.TRT ---
Current Diagnoses Hypo-osmolality and hyponatremia (05/18/23) Alcohol dependence, uncomplicated (05/18/23) Essential (primary) hypertension (05/18/23) Acute diastolic (congestive) heart failure (05/18/23) Heart failure, unspecified (05/18/23) Influenza due to other identified influenza virus with other respiratory manifestations (05/18/23) Acute respiratory failure with hypoxia (05/18/23) Tobacco use (05/18/23) Occupational Therapy Treatment Note M2 OT-IP Current Condition Start: 05/19/23 17:27 Freq: Status: Active Protocol: Document 05/19/23 14:44 [facility] (Rec: 05/19/23 18:00 [facility] [id number]) Occupational Therapy Current Condition Current Condition Evaluation Date 05/19/23 Treatment Diagnosis Acute hypoxic respiratory failure, INfluenza A Diagnosis Onset Date 05/18/23 M3 OT- IP Subjective and Pain Start: 05/19/23 17:27 Freq: Status: Active Protocol: Document 05/20/23 13:40 [facility] (Rec: 05/20/23 14:33 [facility] [id number]) OT- Subjective Occupational Therapy Visit Type Type Treatment Note Visit Start Time 13:40 Visit Stop Time 14:00 Total Visit Minutes 20 Occupational Therapy Visit Comments Patient Comments Pt agreed to do SLUMS. Pt's friend in the room. Able to talk to pt's nurse and child support case officer of concerns as pt gave her house keys to her friend. Patient/Caregiver Goals TO get better, pt states open to go to rehab if needed. OT Pain Assessment Pain When Pain Assessed At Rest Pain Present Pain Present Denied Pain M4 OT- IP ADL's Start: 05/19/23 17:27 Freq: Status: Active Protocol: Document 05/20/23 13:40 [facility] (Rec: 05/20/23 14:33 [facility] [id number]) OT XUW-Hxce-[place] General Evaluation Self-Feeding Ability Standby Assistance Areas Needing Assistance Opening Containers OT ADL-Grooming Comments OT Grooming Comments Not performed. OT ADL-Oral Care Comments Oral Care Comments Not performed OT ADL-Dressing Comments OT Dressing Comments Not performed. OT ADL-Toileting Comments OT Toileting Comments Not performed. OT ADL-Bathing Comments OT Bathing Comments Pt did a shower with nursing aid assist. M5 OT- IP IADL's Start: 05/19/23 17:27 Freq: Status: Active Protocol: Document 05/20/23 13:40 [facility] (Rec: 05/20/23 14:33 [facility] [id number]) OT-Instrumental Activities of Daily Living Deficits IADL Deficits Identified No Deficits Home Safety Awareness Awareness of Need for Assistance at Home Decreased Awareness Medication Management Medication Management Comments Pt states does her own medications in a pill box but unable to recall what she is taking. Suggested pt had a written list of medications to help her to remember. At this time there is concerns for pt's safety to perform. Money Management Money Management Comments Pt states does her own banking needs and use of debt card. At this time there is concerns for pt's safety to perform. Meal Preparation Meal Preparation Comments At this time there is concerns for pt's safety to perform. Firmware Architect Firmware Architect Comments At this time there is concerns for pt's safety to perform. Driving Driving Comments Pt states takes paratransit. M6 OT- IP Functional Cognition Start: 05/19/23 17:27 Freq: Status: Active Protocol: Document 05/20/23 13:40 [facility] (Rec: 05/20/23 14:33 [facility] [id number]) Cognitive Factors Limiting Selfcare Function Cognitive Ability Level of Alertness Alert Patient Orientation Name,Place,Situation Attention Span Ability Capable of Focused Attention, Capable of Sustained Attention Ability to Follow Commands Able to Follow One Step Commands Memory Description Short Term Impaired,Working Impaired Cognitive Tests SLUMS Pt scored 19/30 which implies dementia for the pt. Pt thought it was versus Tuesday, able to recall animals in one minute, able to recall 3/5 words after time passed, not able to state 4 digit number backwards, not able to draw the numbers on the clock and hour hands correctly after time given, and able to answer 3/4 questions right after time passed. Cognitive Comments Cognitive Assessment Comments Pt able to recall use of call light today and thinking much more clearly. Pt still having difficulty with short term memory and working memory needs. Pt will still benefit from reliable assist at home available to her 24/01 at this time if going home. M7 OT- IP Mobility and Balance Start: 05/19/23 17:27 Freq: Status: Active Protocol: Document 05/19/23 14:44 [facility] (Rec: 05/19/23 18:00 [facility] [id number]) OT- Bed Mobility Assessment Sit to Supine Sit to Supine Assist Standby Assistance OT-Transfer Assessment Sit to and From Stand Sit to and from Stand Standby Assistance Transfers Transfer Ability Standby Assistance Technique Transfer Destination Bed,Car Transfer Technique Stand Step Pivot Devices Transfer Assistive Devices None,Gait Belt,Front Wheeled Walker Comments Mobility Comments SBA and mainly assist for all tubing and cord for the pt while transfer form the chair to bed. Pt on 2l and started at 95% and dropped to 93% after getting back to bed. OT- Balance Assessment Sitting Balance and Reactions Static Sitting Balance Ability Normal Dynamic Sitting Balance Ability Good Standing Balance and Reactions Static Standing Balance Ability Good Dynamic Standing Balance Ability Fair M8 OT- IP Objective Assessments Start: 05/19/23 17:27 Freq: Status: Active Protocol: Document 05/19/23 14:44 [facility] (Rec: 05/19/23 18:00 [facility] [id number]) OT Gross Range of Motion Upper Extremity Range of Motion ROM Impairments grossly WFL for ADL needs OT Strength Comments Strength Comments NOt able to formally assess but at least 3+/5 throughout. M9 OT- IP Assessment and Plan Start: 05/19/23 17:27 Freq: Status: Active Protocol: Document 05/20/23 13:40 [facility] (Rec: 05/20/23 14:33 [facility] [id number]) OT Summary Assessment and Plan Potential Rehabilitation Potential Good Analytic Complexity at Evaluation Moderate Summary OT Impairments Pain,Balance,Functional Mobility,Grooming,Dressing, Toileting,Bathing,Toilet Transfers,Shower Transfers, Activity Tolerance Progress Towards Goals Slow Progress due to Medical Issues,Slow Progress due to Cognition Assessment Summary Pt still having decreased insight to her needs and scored 19/30 on the SLUMS which implies dementia, however not sure if this is pt 's baseline or will still improve cognitively as pt currently having to use O2 here in the hospital. Pt may possibly benefit from short skilled rehab to help with her overall activity tolerance versus home with 24/7 available assist. Goals Self-Feeding Goal Independent Grooming Goal Independent Dressing Goal Independent Toileting Goal Independent Bathing Goal Independent Toilet Transfer Goal Independent Shower Transfer Goal Independent Days to Meet Goals 15 Frequency of Treatment Frequency Of Treatment Once a Day Treatment Plan OT Treatment Plan ADL Training,Functional Cognition Training,Functional Mobility,Patient/Family Education,Discharge Planning Discharge Recommendations OT Discharge Recommendations Home with 24/7 Assist Available,Home Health,SNF Rehab Transportation Needs at Discharge Private Vehicle,Wheelchair/ Cabulance
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
[2023-05-20 14:42] LABS: Sodium Urine Random < 5 mmol/L (30-90)
[2023-05-20] MEDS: SODIUM CHLORIDE 0.9% 1,000 ML 125 ML IV (15:11)
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
[2023-05-20] MEDS: lisinopriL 20 MG TABLET 40 MG PO (20:25)
[2023-05-21] VITALS (10 sets, daily range): BP systolic 154–184; BP diastolic 71–93; PULSE 67–115; RESP 19–24; TEMP 36.9; O2SAT 90–100
[2023-05-21] MEDS: SODIUM CHLORIDE 0.9% 1,000 ML 125 ML IV (01:41)
[2023-05-21] MEDS: ACETAMINOPHEN 325 MG TABLET 650 MG PO ×2 (06:06→18:23)
[2023-05-21] MEDS: PANTOPRAZOLE DR 40 MG TABLET PO (06:07)
[2023-05-21] MEDS: VANCOMYCIN TROUGH 1 REQUEST MISC (07:30)
[2023-05-21 07:41] LABS: Add Manual Diff / Slide Review NO; Basophils Absolute Auto 0 /uL (0-100); Basophils Percent Auto 0.2 % (0-2); Eosinophils Absolute Auto 0 /uL (0-450); Eosinophils Percent Auto 0.1 % (2-4); Hematocrit 34.8 % (36-46); Hemoglobin 11.8 g/dL (12.0-16.0); Lymphocytes Absolute Auto 300 /uL (1100-4500); Lymphocytes Percent Auto 4.7 % (25-40); Mean Corpuscular Hemoglobin 30.6 PG (26-34); Monocytes Absolute Auto 300 /uL (0-900); Monocytes Percent Auto 4.4 % (3-14); Neutrophils Absolute Auto 6400 /uL (1500-7000); Neutrophils Percent Auto 90.6 % (50-75); Platelet Count 143 X10^3/uL (150-400); Red Blood Cell Count 3.87 X10^6/uL (4.0-5.2); Red Cell Distribution Width 15.5 % (11.6-14.8); White Blood Cell Count 7.1 X10^3/uL (4.5-11.0)
[2023-05-21] MEDS: VANCOMYCIN 1,250 MG/250 ML PIGGYBACK 166.667 MG IV (07:46)
[2023-05-21] MEDS: methylPREDNISolone 125 MG/2 ML VIAL 60 MG IV (07:46)
[2023-05-21] MEDS: metroNIDAZOLE 500 MG TABLET PO ×2 (08:01→21:08)
[2023-05-21] MEDS: GABAPENTIN 300 MG CAPSULE 600 MG PO ×2 (08:02→21:07)
[2023-05-21] MEDS: OSELTAMIVIR 75 MG CAPSULE PO ×2 (08:02→21:08)
[2023-05-21] MEDS: ESCITALOPRAM 10 MG TABLET 5 MG PO (08:02)
[2023-05-21] MEDS: guaiFENesin ER 600 MG TAB PO ×2 (08:02→21:08)
[2023-05-21] MEDS: ENOXAPARIN 40 MG/0.4 ML SYRINGE SUBCUT (08:02)
[2023-05-21] MEDS: AMLODIPINE 5 MG TABLET PO (08:02)
[2023-05-21] MEDS: METOPROLOL IR 25 MG TABLET PO ×2 (08:02→21:08)
[2023-05-21] MEDS: NICOTINE 21 MG PATCH TOP (08:02)
[2023-05-21 08:24] LABS: BUN Creatinine Ratio 34.4 (6-22); Blood Urea Nitrogen 21 mg/dL (7-17); Calcium 9.2 mg/dL (8.4-10.2); Carbon Dioxide 33 mmol/L (22-32); Chloride 92 mmol/L (98-107); Estimated Glomerular Filt Rate > 60 mL/min (>60); Glucose 130 mg/dL (80-110); HEMOLYSIS 38 (0-50); Potassium 4.7 mmol/L (3.4-5.1); Sodium 127 mmol/L (137-145)
[2023-05-21 08:25] LABS: Magnesium 1.9 mg/dL (1.6-2.3)
[2023-05-21 08:38] LABS: Vancomycin Trough 16.6 ug/mL (10-20)
[2023-05-21] MEDS: ALBUTEROL 2.5 MG/3 ML NEB (ADULT) INH ×4 (09:08→22:50)
[2023-05-21] MEDS: BUDESONIDE 0.5 MG/2 ML NEB INH ×2 (09:08→19:00)
[2023-05-21] MEDS: SODIUM CHLORIDE 1,000 MG TABLET 1000 MG PO (09:58)
[2023-05-21] MEDS: VANCOMYCIN PEAK 1 REQUEST MISC (10:30)
[2023-05-21] MEDS: CEFEPIME 2 GM in SODIUM CHLORIDE 0.9% 100 ML IV (10:59)
--- NOTE | 2023-05-21 11:44 | PT-IP ANOTE ---
checked on pt and pt is asleep. attempted to wake pt but pt unable to wake up. will attempt this afternoon.
[2023-05-21 12:06] LABS: Vancomycin Peak 34.6 ug/mL (20-40)
--- NOTE | 2023-05-21 12:55 | PT.IPTN ---
Current Diagnoses Hypo-osmolality and hyponatremia (05/18/23) Alcohol dependence, uncomplicated (05/18/23) Essential (primary) hypertension (05/18/23) Acute diastolic (congestive) heart failure (05/18/23) Heart failure, unspecified (05/18/23) Influenza due to other identified influenza virus with other respiratory manifestations (05/18/23) Acute respiratory failure with hypoxia (05/18/23) Tobacco use (05/18/23) Physical Therapy Treatment Note M2 PT-IP Current Condition Start: 05/19/23 17:27 Freq: NEEDED Status: Active Protocol: Document 05/19/23 17:28 AB (Rec: 05/19/23 17:49 AB [id number]) Physical Therapy Current Condition Current Condition Evaluation Date 05/19/23 Treatment Diagnosis acute hypoxemic respiratory failure; impaired gait and mobility Onset Date 05/18/23 M3 PT-IP Subjective Start: 05/19/23 17:27 Freq: NEEDED Status: Active Protocol: Document 05/21/23 13:29 TS (Rec: 05/21/23 13:36 TS [id number]) Subjective Physical Therapy Visit Type Type Treatment Note Visit Start Time 12:55 Visit Stop Time 13:25 Total Visit Minutes 30 Number of ENAMEL BUFFER Visits 1 Physical Therapy Visit Comments Patient Comments Pt found asleep, alert when awakened, would like to go for a walk. M4 PT-IP Mobility and Gait Start: 05/19/23 17:27 Freq: NEEDED Status: Active Protocol: Document 05/21/23 13:29 TS (Rec: 05/21/23 13:36 TS [id number]) PT-Bed Mobility Assessment Supine to Sit Supine to Sit Standby Assistance,Head of Bed Elevated,Bedrails Scooting Scooting to Edge of Bed Standby Assistance PT-Transfer Assessment Sit to and From Stand Sit to and from Stand Standby Assistance,1 Person Assistance,Use of Upper Extremities Equipment Transfer Assistive Device Gait Belt,Front Wheeled Walker Orthotic/Prosthetic Devices or Brace: No Comments Mobility Comments Pt found resting on 2.5L of o2 , Spo2 96%, pt agreeable to PT . Supine to sit SBA with BUE support and HOB elevated. She performed sit to stand x1 with FWW SBA, has good standing balance with retrolean. She ambulated ~150'SBA with FWW, has a step thru gait with normal pacing, denied any SOB, continues to have cough. Pt was left back in room, all needs met, RN notified. Gait Assessment Gait Gait Assistance Required: Standby Assistance,1 Person Assist Distance (Feet) 150 Able to Maintain Weight Bearing Status Yes During Gait Assistive Devices Assistive Device Gait Belt,Front Wheeled Walker Orthotic/Prosthetic Devices or Brace: No Gait Deviations General Gait Pattern Decreased Stride Length, Decreased Feet Clearance Factors Limiting Gait Function Factors Limiting Gait Function Decreased Activity Tolerance, Decreased Strength,Poor Balance,Poor Safety Awareness, Respiratory Distress Comments Gait Comments See mobility comments PT-Balance Assessment Sitting Balance and Reactions Static Sitting Balance Ability Good Dynamic Sitting Balance Ability Good Standing Balance and Reactions Static Standing Balance Ability Good Dynamic Standing Balance Ability Fair M5 PT-IP Objective Assessments Start: 05/19/23 17:27 Freq: NEEDED Status: Active Protocol: Document 05/19/23 17:28 AB (Rec: 05/19/23 17:49 AB [id number]) Orientation Orientation/Cognition Level of Alertness Confusional State Orientation Name,Situation Language Function Ability No Deficits Noted Safety Awareness Decreased Safety Awareness Memory Description Short Term Impaired Gross Range of Motion Upper Extremity ROM Assessment Within Functional Limits Lower Extremity ROM Assessment Within Functional Limits Strength Upper Extremity Strength Assessment Within Functional Limits Lower Extremity Strength Assessment Within Functional Limits M6 PT-IP Treatment Start: 05/19/23 17:27 Freq: NEEDED Status: Active Protocol: Document 05/21/23 13:29 TS (Rec: 05/21/23 13:36 TS [id number]) Physical Therapy Treatment Education Education Provided Safety M7 PT-IP Assessment and Plan Start: 05/19/23 17:27 Freq: NEEDED Status: Active Protocol: Document 05/21/23 13:29 TS (Rec: 05/21/23 13:36 TS [id number]) PT Summary Assessment and Plan Potential Rehabilitation Potential Fair Summary Impairments Pain,ROM,Strength,Balance, Coordination,Sensation,Tone, Cognition,Bed Mobility, Transfers,Gait,Activity Tolerance Progress Towards Goals Slow Progress due to Medical Issues,Slow Progress due to Activity Tolerance Assessment Summary Arlene is making some progress with her mobility but remains limited by her ongoing medical issues and activity tolerance. She is SBA for all bed mobility this session with HOB elevated. She continues to be SBA for sit to stand with FWW. She progressed her ambulation to ~ 150' SBA with 2.5L of o2, denied any SOB. PT continues to recommend SNF vs Home. Pt lives alone and would benefit from rehab stay to progress strength and activity tolerance. Goals Bed Mobility Goal Independent Transfer Goal Independent,Front Wheeled Walker Gait Goal Independent,Front Wheel Walker Gait Distance 200 Other Goals Pt to transfer independently with LRAD or no AD to show improving functional mobility. Pt to amulate 200ft with LRAD or no AD to show improving tolerance to activity. Pt to ascend/descend 3 steps with right hand rail to show improving LE strength. Days to Meet Goals 10 Frequency of Treatment Frequency Of Treatment Once a Day Treatment Plan Physical Therapy Treatment Plan Bed Mobility Training,Transfer Training,Gait Training, Therapeutic Exercise,Balance Retraining,Discharge Planning, Hot or Cold Pack,Neuromuscular Re-ed,Coordination Retraining ,Manual Therapy Recommendations To Nursing Amount of Assist Needed 1 Person Assist Discharge Recommendations PT Discharge Recommendations Home with / Assist Available,Home Health,SNF Rehab,Home vs SNF Equipment Needed for Home Before FWW Discharge Transportation Needs at Discharge Private Vehicle,Wheelchair/ Cabulance
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
--- NOTE | 2023-05-21 15:10 | P.PN_ITS ---
Subjective Subjective Interval history: Patient has no complaints. TRASH COLLECTOR SUPERVISOR working on home situation. Home O2 eval ordered. Exam Vital Signs (past 8 hours): - 05/21/23 07:47 05/21/23 09:09 05/21/23 11:00 Pulse Rate 76 75 70 Respiratory Rate 21 20 24 Blood Pressure 184/93 H 163/79 H Pulse Oximetry 100 96 95 Oxygen Delivery Method Nasal Cannula Oxygen Flow Rate 2 3 2 Fraction of Inspired Oxygen 30 Oxygen Delivery Method Nasal Cannula Oxygen Flow Rate 2 Narrative Exam Narrative: Sitting in bed, NAD and appears comfortable Resp Other: Wheezing and rhonchi have resolved Decreased sounds diffusely Cardio Other: RRR, EDD at LSB b/l leg swelling GI Other: Not distended, not tender Skin Other: peripheral cyanosis- hands Neuro Other: without deficits Psych Other: alert, oriented flat affect Objective Labs 05/21/23 07:35 05/21/23 07:35 Labs: Laboratory Results - last 24 hr 05/21/23 05/21/23 07:35 11:20 WBC 7.1 RBC 3.87 L Hgb 11.8 L Hct 34.8 L MCV 90.0 MCH 30.6 MCHC 34.0 RDW 15.5 H Plt Count 143 L Neut % (Auto) 90.6 H Lymph % (Auto) 4.7 L [place] % (Auto) 4.4 Eos % (Auto) 0.1 L Baso % (Auto) 0.2 Neut # (Auto) 6400 Lymph # (Auto) 300 L [place] # (Auto) 300 Eos # (Auto) 0 Baso # (Auto) 0 Sodium 127 L Potassium 4.7 D Chloride 92 L Carbon Dioxide 33 H BUN 21 H Creatinine 0.61 Estimated GFR > 60 BUN/Creatinine Ratio 34.4 H Glucose 130 H Calcium 9.2 Magnesium 1.9 Vancomycin Peak 34.6 Vancomycin Trough 16.6 PFSH Medical History Alcoholism Continuous tobacco abuse Hypertension Social History household members: none Smoking Status: Current every day smoker Assessment & Plan Assessment and plan (1) Acute hypoxemic respiratory failure: Status: Acute Plan: Multifactorial - Influenza / COPD exacerbation / CHF Now weaned off Bipap to 2L NC Solumedrol stopped and now on po 40 prednisone daily, home Breo-ellipta, DuoNeb PPI for GI prophylaxis Lasix now stopped down to 1L NC, home O2 eval ordered (2) Influenza A: Status: Acute Plan: w/ possible mastoiditis Tamiflu x5 days continue broad spectrum abx transition to augmentin and doxy (3) Acute CHF: Qualifiers: Heart failure type: diastolic Qualified Code(s): I50.31 - Acute diastolic (congestive) heart failure Status: Acute Plan: Likely due to severe HTN Lasix 40 mg IV given, now off - daily weights, I&O - w/o evidence of ACS - echo with EF 50-55%, diastolic relaxation abnormality, RVSP 46 indicating pulm HTN (4) Hyponatremia: Status: Acute Plan: 124 on admit. Could be from CHF / hypervolemic, from Influenza and significant daily beer intake BMP daily - started on lasix - now down to 124 - check urine sodium, may be dry after diuresis (5) Hypertension: Status: Acute Plan: Severe, likely cause of CHF Continue home lisinopril and amlodipine Started Metoprolol 25 mg bid, prn hydralazine. Hold home metoprolol XL 300 due to potential bronchoconstriction (6) Continuous tobacco abuse: Status: Acute Plan: nicotine patch (7) Alcoholism: Status: Acute Plan: on average 7-9 beers daily, w/o withdrawals in the past Assessment & Plan narrative: Dispo: Home in 1-2 days.
[2023-05-21] MEDS: HYDRALAZINE 20 MG/ML VIAL 10 MG IV (18:22)
[2023-05-21] MEDS: OXYCODONE IR 5 MG TABLET PO (18:22)
[2023-05-21] MEDS: lisinopriL 20 MG TABLET 40 MG PO (21:06)
[2023-05-21] MEDS: CEFDINIR 300 MG CAPSULE PO (21:07)
[2023-05-22] VITALS (8 sets, daily range): BP systolic 139–166; BP diastolic 73–79; PULSE 68–88; RESP 16–22; TEMP 36.3–37.1; O2SAT 81–93
[2023-05-22 05:37] LABS: BUN Creatinine Ratio 29.7 (6-22); Blood Urea Nitrogen 19 mg/dL (7-17); Calcium 9.4 mg/dL (8.4-10.2); Carbon Dioxide 30 mmol/L (22-32); Chloride 94 mmol/L (98-107); Estimated Glomerular Filt Rate > 60 mL/min (>60); Glucose 104 mg/dL (80-110); HEMOLYSIS < 15 (0-50); Potassium 3.9 mmol/L (3.4-5.1); Sodium 127 mmol/L (137-145)
[2023-05-22 05:43] LABS: Add Manual Diff / Slide Review NO; Basophils Absolute Auto 0 /uL (0-100); Basophils Percent Auto 0.1 % (0-2); Eosinophils Absolute Auto 0 /uL (0-450); Hemoglobin 11.1 g/dL (12.0-16.0); Lymphocytes Absolute Auto 400 /uL (1100-4500); Lymphocytes Percent Auto 7.3 % (25-40); Mean Corpuscular HGB Conc 34.8 % (30-36); Mean Corpuscular Hemoglobin 30.9 PG (26-34); Mean Corpuscular Volume 88.7 fL (80-100); Monocytes Absolute Auto 500 /uL (0-900); Monocytes Percent Auto 9.6 % (3-14); Neutrophils Absolute Auto 4700 /uL (1500-7000); Platelet Count 155 X10^3/uL (150-400); Red Blood Cell Count 3.61 X10^6/uL (4.0-5.2); Red Cell Distribution Width 15.6 % (11.6-14.8); White Blood Cell Count 5.6 X10^3/uL (4.5-11.0)
[2023-05-22] MEDS: PANTOPRAZOLE DR 40 MG TABLET PO (06:47)
[2023-05-22] MEDS: GABAPENTIN 300 MG CAPSULE 600 MG PO ×2 (08:07→21:29)
[2023-05-22] MEDS: AMLODIPINE 5 MG TABLET PO (08:07)
[2023-05-22] MEDS: BENZONATATE 100 MG CAPSULE PO (08:07)
[2023-05-22] MEDS: ESCITALOPRAM 10 MG TABLET 5 MG PO (08:07)
[2023-05-22] MEDS: predniSONE 20 MG TABLET 40 MG PO (08:07)
[2023-05-22] MEDS: METOPROLOL IR 25 MG TABLET PO ×2 (08:07→21:28)
[2023-05-22] MEDS: NICOTINE 21 MG PATCH TOP (08:08)
[2023-05-22] MEDS: ENOXAPARIN 40 MG/0.4 ML SYRINGE SUBCUT (08:08)
[2023-05-22] MEDS: metroNIDAZOLE 500 MG TABLET PO ×3 (08:08→21:28)
[2023-05-22] MEDS: SODIUM CHLORIDE 1,000 MG TABLET 1000 MG PO (08:08)
[2023-05-22] MEDS: OSELTAMIVIR 75 MG CAPSULE PO ×2 (08:08→21:28)
[2023-05-22] MEDS: guaiFENesin ER 600 MG TAB PO ×2 (08:08→21:28)
[2023-05-22] MEDS: CEFDINIR 300 MG CAPSULE PO ×2 (08:08→21:28)
[2023-05-22] MEDS: FUROSEMIDE 20 MG/2 ML VIAL IV (08:48)
[2023-05-22] MEDS: ALBUTEROL 2.5 MG/3 ML NEB (ADULT) INH ×3 (09:24→21:46)
[2023-05-22] MEDS: BUDESONIDE 0.5 MG/2 ML NEB INH ×2 (09:24→21:46)
--- NOTE | 2023-05-22 12:30 | CM.DPC ---
DCP Cont: Per MD, pt making progress and might be close to being medically stable to d/c from the hospital. RT assessed for home O2 and recommending an O2 concentrator but pt currently declining. SW met bedside with pt and explained role and pt alert and oriented and sitting in bedside chair and does appear to have some either short term memory issues or a unique guest history clerk/historian as sometimes pt's answers do not seem linear. SW provided the Medicaid LTC application and pt states she has been approved for DEMETRIS CG in the past but had difficulty with some of the DEMETRIS agencies and their CG challenges. Pt states she is not currently active with DEMETRIS. Pt states she would like her local friend Juan to be her assigned DEMETRIS CG as she feels he takes really good care of me already and I would like him to get paid for his care. Pt currently declines the need or interest in Assisted Living/Independent living and states her local supportive brother is helping to switch [employer] to one that is half the dinh of my current propane provider. Pt states she feels the cabin she stays in is appropriate to live in once heat is set up again. Pt willing to sign the LTC application and provided the information on her social security number and her rent etc.. and confirmed her current cell phone number and signed the application but declined having anyone or her brother as her outside sales account representative on the application. MANUEL faxed to [facility] and provided original copy to patient and scanned copy into her EMR. Pt states her brother will likely provide transport home at d/c and she plans to ask him to stay in his home for the next couple days at d/c while waiting for Propane to be set up. Pt states her local son lives in a small RV and therefore no room for her to stay with him. Pt also willing to look into staying in a motel if needed but declines HH or SNF at this time. MANUEL provided the printed resource list including Meals on Wheels and energy assistance etc and gave to patient and she was appreciative. MANUEL updated RN. Agustina Velazquez MSW
--- NOTE | 2023-05-22 14:02 | PT.IPTN ---
Current Diagnoses Hypo-osmolality and hyponatremia (05/18/23) Alcohol dependence, uncomplicated (05/18/23) Essential (primary) hypertension (05/18/23) Acute diastolic (congestive) heart failure (05/18/23) Heart failure, unspecified (05/18/23) Influenza due to other identified influenza virus with other respiratory manifestations (05/18/23) Acute respiratory failure with hypoxia (05/18/23) Tobacco use (05/18/23) Physical Therapy Treatment Note M2 PT-IP Current Condition Start: 05/19/23 17:27 Freq: NEEDED Status: Active Protocol: Document 05/19/23 17:28 AB (Rec: 05/19/23 17:49 AB [id number]) Physical Therapy Current Condition Current Condition Evaluation Date 05/19/23 Treatment Diagnosis acute hypoxemic respiratory failure; impaired gait and mobility Onset Date 05/18/23 M3 PT-IP Subjective Start: 05/19/23 17:27 Freq: NEEDED Status: Active Protocol: Document 05/22/23 14:30 AB (Rec: 05/22/23 14:52 AB [id number]) Subjective Physical Therapy Visit Type Type Treatment Note Visit Start Time 13:39 Visit Stop Time 14:02 Total Visit Minutes 23 Physical Therapy Visit Comments Patient Comments Pt presents asleep in chair but is agreeable to PT upon waking. Pt does not have supplemental O2. Therapy Pain Assessment Pain When Pain Assessed At Rest Pain Present Pain Present Denied Pain M4 PT-IP Mobility and Gait Start: 05/19/23 17:27 Freq: NEEDED Status: Active Protocol: Document 05/22/23 14:30 AB (Rec: 05/22/23 14:52 AB [id number]) PT-Transfer Assessment Sit to and From Stand Sit to and from Stand Standby Assistance,1 Person Assistance,Use of Upper Extremities Equipment Transfer Assistive Device Gait Belt,Front Wheeled Walker Orthotic/Prosthetic Devices or Brace: No Transfers Transfer Destination Chair Transfer Technique ambulated Transfer Ability Level of Assist Standby Assistance,1 Person Assistance,Use of Upper Extremities Comments Mobility Comments Pt is without supplemental O2 this PM. She is able to perform seated therex as below without increased SOB. The pt then performs STS from chair with SBA and use of UEs. The pt ambulated with 4WW with SBA and PT providing education regarding proper use, as pt reports her son recently got her a 4WW for when she discharges. Pt ambulated ~ 280ft around ICU and no significant gait deviations, no LOB and demonstrating fair recall of education provided. No significant SOB noted while ambulating. Upon returning to room, the pt required a seated rest break, with O2 sat at 80% initially, and was cued on pursed lip breathing. O2 sat improved to high 80s/ low 90s. The pt reports she is too fatigued to perform further mobility. She was assisted to comfortable position in chair with all needs met, call light within reach, chair alarm set. Gait Assessment Gait Gait Assistance Required: Standby Assistance,1 Person Assist Distance (Feet) 280 Able to Maintain Weight Bearing Status Yes During Gait Assistive Devices Assistive Device Gait Belt,4 Wheeled Walker Orthotic/Prosthetic Devices or Brace: No Factors Limiting Gait Function Factors Limiting Gait Function Decreased Activity Tolerance, Decreased Strength,Poor Safety Awareness,Respiratory Distress Comments Gait Comments See mobility comments Stair Climbing Assessment Comments Stair Climbing Comments NT due to weakness and fatigue . PT-Balance Assessment Sitting Balance and Reactions Static Sitting Balance Ability Good Dynamic Sitting Balance Ability Good Standing Balance and Reactions Static Standing Balance Ability Good Dynamic Standing Balance Ability Good M5 PT-IP Objective Assessments Start: 05/19/23 17:27 Freq: NEEDED Status: Active Protocol: Document 05/19/23 17:28 AB (Rec: 05/19/23 17:49 AB [id number]) Orientation Orientation/Cognition Level of Alertness Confusional State Orientation Name,Situation Language Function Ability No Deficits Noted Safety Awareness Decreased Safety Awareness Memory Description Short Term Impaired Gross Range of Motion Upper Extremity ROM Assessment Within Functional Limits Lower Extremity ROM Assessment Within Functional Limits Strength Upper Extremity Strength Assessment Within Functional Limits Lower Extremity Strength Assessment Within Functional Limits M6 PT-IP Treatment Start: 05/19/23 17:27 Freq: NEEDED Status: Active Protocol: Document 05/22/23 14:30 AB (Rec: 05/22/23 14:52 AB [id number]) Physical Therapy Treatment Exercises Exercises Ankle Pumps,Straight Leg Raises,Seated Knee Flexion/ Extension Education Education Provided Safety Brace Education Patient Other Treatments Other Treatment Performed seated marching All therex performed x10 reps each side M7 PT-IP Assessment and Plan Start: 05/19/23 17:27 Freq: NEEDED Status: Active Protocol: Document 05/22/23 14:30 AB (Rec: 05/22/23 14:52 AB [id number]) PT Summary Assessment and Plan Potential Rehabilitation Potential Fair Status of Condition at Evaluation Stable Summary Impairments Pain,ROM,Strength,Balance, Coordination,Sensation,Tone, Cognition,Bed Mobility, Transfers,Gait,Activity Tolerance Progress Towards Goals Slow Progress due to Medical Issues,Slow Progress due to Activity Tolerance Assessment Summary The pt demonstrated improved tolerance to activity, as she was able to perform therex and ambulate longer distance before requiring a seated rest break. Ambulation was performed with 4WW, with pt demonstrating good recall of education provided, however continued gait training with 4WW should be performed. The pt continues to benefit from skilled PT at this time. Based on her improvement, PT recommends discharge to home with assistance and HHPT. However, discharge disposition may change based on progress or medical need. Goals Bed Mobility Goal Independent Transfer Goal Independent,Front Wheeled Walker Gait Goal Independent,Front Wheel Walker Gait Distance 200 Other Goals Pt to transfer independently with LRAD or no AD to show improving functional mobility. Pt to ambulate 200ft with LRAD or no AD to show improving tolerance to activity. Pt to ascend/descend 3 steps with right hand rail to show improving LE strength. Days to Meet Goals 10 Frequency of Treatment Frequency Of Treatment Once a Day Treatment Plan Physical Therapy Treatment Plan Bed Mobility Training,Transfer Training,Gait Training, Therapeutic Exercise,Balance Retraining,Discharge Planning, Hot or Cold Pack,Neuromuscular Re-ed,Coordination Retraining ,Manual Therapy Recommendations To Nursing Amount of Assist Needed Standby Assistance Discharge Recommendations PT Discharge Recommendations Home with 24/7 Assist Available,Home Health,Home vs SNF Equipment Needed for Home Before FWW- depending on progress Discharge Transportation Needs at Discharge Private Vehicle,Wheelchair/ Cabulance
--- NOTE | 2023-05-22 16:16 | P.PN_ITS ---
Subjective Subjective Interval history: Patient refusing O2 for home O2 eval, despite needing 3L with ambulation. WASH OPERATOR arranging resources before dc home tomorrow. Exam Vital Signs (past 8 hours): - 05/22/23 09:08 05/22/23 09:24 05/22/23 14:03 Temperature 98.7 F Pulse Rate 80 68 88 Respiratory Rate 18 22 22 Blood Pressure 166/78 H Pulse Oximetry 81 L 90 L 89 L Oxygen Delivery Method Room Air Room Air Oxygen Flow Rate 0 05/22/23 16:04 Temperature 97.8 F Pulse Rate 80 Respiratory Rate 16 Blood Pressure 139/79 Pulse Oximetry 90 L Oxygen Delivery Method Oxygen Flow Rate 0 Fraction of Inspired Oxygen 30 Oxygen Delivery Method Room Air Oxygen Flow Rate 0 Narrative Exam Narrative: Sitting in bed, NAD and appears comfortable Resp Other: Wheezing and rhonchi have resolved Decreased sounds diffusely Cardio Other: RRR, EDD at LSB b/l leg swelling GI Other: Not distended, not tender Skin Other: peripheral cyanosis- hands Neuro Other: without deficits Psych Other: alert, oriented flat affect Objective Labs 05/22/23 04:31 05/22/23 04:31 Labs: Laboratory Results - last 24 hr 05/22/23 04:31 WBC 5.6 RBC 3.61 L Hgb 11.1 L Hct 32.0 L MCV 88.7 MCH 30.9 MCHC 34.8 RDW 15.6 H Plt Count 155 Neut % (Auto) 83.0 H Lymph % (Auto) 7.3 L [place] % (Auto) 9.6 Eos % (Auto) 0.0 L Baso % (Auto) 0.1 Neut # (Auto) 4700 Lymph # (Auto) 400 L [place] # (Auto) 500 Eos # (Auto) 0 Baso # (Auto) 0 Sodium 127 L Potassium 3.9 Chloride 94 L Carbon Dioxide 30 BUN 19 H Creatinine 0.64 Estimated GFR > 60 BUN/Creatinine Ratio 29.7 H Glucose 104 Calcium 9.4 Magnesium 2.0 PFSH Medical History Alcoholism Continuous tobacco abuse Hypertension Social History household members: none Smoking Status: Current every day smoker Assessment & Plan Assessment and plan (1) Acute hypoxemic respiratory failure: Status: Acute Plan: Multifactorial - Influenza / COPD exacerbation / CHF Now weaned off Bipap to 2L NC Solumedrol stopped and now on po 40 prednisone daily, home Breo-ellipta, DuoNeb PPI for GI prophylaxis Lasix now stopped down to 1L NC, home O2 eval ordered but patient refusing home O2 (2) Influenza A: Status: Acute Plan: w/ possible mastoiditis Tamiflu x5 days continue broad spectrum abx transition to cefdinir (3) Acute CHF: Qualifiers: Heart failure type: diastolic Qualified Code(s): I50.31 - Acute diastolic (congestive) heart failure Status: Acute Plan: Likely due to severe HTN Lasix 40 mg IV given, now off - daily weights, I&O - w/o evidence of ACS - echo with EF 50-55%, diastolic relaxation abnormality, RVSP 46 indicating pulm HTN (4) Hyponatremia: Status: Acute Plan: 124 on admit. Could be from CHF / hypervolemic, from Influenza and significant daily beer intake BMP daily - started on lasix - now down to 124 - check urine sodium, may be dry after diuresis (5) Hypertension: Status: Acute Plan: Severe, likely cause of CHF Continue home lisinopril and amlodipine Started Metoprolol 25 mg bid, prn hydralazine. Hold home metoprolol XL 300 due to potential bronchoconstriction (6) Continuous tobacco abuse: Status: Acute Plan: nicotine patch (7) Alcoholism: Status: Acute Plan: on average 7-9 beers daily, w/o withdrawals in the past Assessment & Plan narrative: Dispo: Home on 05/23.
[2023-05-22] MEDS: ACETAMINOPHEN 325 MG TABLET 650 MG PO (18:09)
[2023-05-22] MEDS: OXYCODONE IR 5 MG TABLET PO (18:09)
[2023-05-22] MEDS: lisinopriL 20 MG TABLET 40 MG PO (21:29)
[2023-05-23 05:12] LABS: Add Manual Diff / Slide Review NO; Basophils Absolute Auto 0 /uL (0-100); Basophils Percent Auto 0.2 % (0-2); Eosinophils Absolute Auto 0 /uL (0-450); Hematocrit 35.2 % (36-46); Hemoglobin 11.9 g/dL (12.0-16.0); Lymphocytes Absolute Auto 700 /uL (1100-4500); Lymphocytes Percent Auto 14.6 % (25-40); Mean Corpuscular HGB Conc 33.9 % (30-36); Mean Corpuscular Hemoglobin 30.5 PG (26-34); Monocytes Absolute Auto 700 /uL (0-900); Monocytes Percent Auto 14.7 % (3-14); Neutrophils Absolute Auto 3300 /uL (1500-7000); Neutrophils Percent Auto 70.5 % (50-75); Platelet Count 169 X10^3/uL (150-400); Red Blood Cell Count 3.91 X10^6/uL (4.0-5.2); Red Cell Distribution Width 15.8 % (11.6-14.8); White Blood Cell Count 4.7 X10^3/uL (4.5-11.0)
[2023-05-23 05:16] LABS: BUN Creatinine Ratio 23.8 (6-22); Blood Urea Nitrogen 15 mg/dL (7-17); Calcium 9.5 mg/dL (8.4-10.2); Carbon Dioxide 36 mmol/L (22-32); Chloride 91 mmol/L (98-107); Estimated Glomerular Filt Rate > 60 mL/min (>60); Glucose 88 mg/dL (80-110); HEMOLYSIS < 15 (0-50); Potassium 4.1 mmol/L (3.4-5.1); Sodium 129 mmol/L (137-145)
[2023-05-23] MEDS: PANTOPRAZOLE DR 40 MG TABLET PO (06:50)
[2023-05-23 07:02] VITALS: PULSE 82; RESP 19; TEMP 36.7; O2SAT 98
[2023-05-23] MEDS: HYDRALAZINE 20 MG/ML VIAL 10 MG IV (07:10)
--- NOTE | 2023-05-23 07:24 | PC.NURSE ---
shift note--pt was up in the chair the first severeal hours this shift; she ambulated to the bathroom a couple of times with standby asst; after returning to bed, she requested a purewick; she slept well; this morning, her b/p was 187/101 and she was given hydralazine 10mg prior to shift change; at 0230, she was placed on o2/2l/nc for o2 sat 84% while sleeping; o2 sat 90's on 2l
[2023-05-23 07:35] VITALS: PULSE 85; RESP 20; O2SAT 92
[2023-05-23] MEDS: BUDESONIDE 0.5 MG/2 ML NEB INH (07:35)
[2023-05-23] MEDS: ALBUTEROL 2.5 MG/3 ML NEB (ADULT) INH (07:35)
[2023-05-23 08:13] VITALS: BP 143/74; PULSE 86
[2023-05-23] MEDS: AMLODIPINE 5 MG TABLET PO (08:49)
[2023-05-23] MEDS: FUROSEMIDE 20 MG/2 ML VIAL IV (08:49)
[2023-05-23] MEDS: ESCITALOPRAM 10 MG TABLET 5 MG PO (08:50)
[2023-05-23] MEDS: METOPROLOL IR 25 MG TABLET PO (08:50)
[2023-05-23] MEDS: GABAPENTIN 300 MG CAPSULE 600 MG PO (08:50)
[2023-05-23] MEDS: guaiFENesin ER 600 MG TAB PO (08:50)
[2023-05-23] MEDS: CEFDINIR 300 MG CAPSULE PO (08:50)
[2023-05-23] MEDS: OSELTAMIVIR 75 MG CAPSULE PO (08:51)
[2023-05-23] MEDS: metroNIDAZOLE 500 MG TABLET PO (08:51)
[2023-05-23] MEDS: predniSONE 20 MG TABLET 40 MG PO (08:51)
[2023-05-23] MEDS: SODIUM CHLORIDE 1,000 MG TABLET 1000 MG PO (08:51)
[2023-05-23] MEDS: NICOTINE 21 MG PATCH TOP (08:51)
[2023-05-23 09:00] VITALS: BP 136/65; PULSE 91; RESP 18; TEMP 36.3; O2SAT 93
--- NOTE | 2023-05-23 11:00 | PT.IPTN ---
Current Diagnoses Hypo-osmolality and hyponatremia (05/18/23) Alcohol dependence, uncomplicated (05/18/23) Essential (primary) hypertension (05/18/23) Acute diastolic (congestive) heart failure (05/18/23) Heart failure, unspecified (05/18/23) Influenza due to other identified influenza virus with other respiratory manifestations (05/18/23) Acute respiratory failure with hypoxia (05/18/23) Tobacco use (05/18/23) Physical Therapy Treatment Note M2 PT-IP Current Condition Start: 05/19/23 17:27 Freq: NEEDED Status: Active Protocol: Document 05/19/23 17:28 AB (Rec: 05/19/23 17:49 AB [id number]) Physical Therapy Current Condition Current Condition Evaluation Date 05/19/23 Treatment Diagnosis acute hypoxemic respiratory failure; impaired gait and mobility Onset Date 05/18/23 M3 PT-IP Subjective Start: 05/19/23 17:27 Freq: NEEDED Status: Active Protocol: Document 05/23/23 11:00 AW (Rec: 05/23/23 11:39 AW [id number]) Subjective Physical Therapy Visit Type Type Treatment Note Visit Start Time 09:31 Visit Stop Time 11:00 Total Visit Minutes 30 Notes split visits due to AM rounds - [id number] and [id number]. Physical Therapy Visit Comments Patient Comments Pt is alert and sitting up in the chair on 2L/min O2 via NC. She is agreeable to work with therapy. Therapy Pain Assessment Pain When Pain Assessed At Rest Pain Present Pain Present Denied Pain M4 PT-IP Mobility and Gait Start: 05/19/23 17:27 Freq: NEEDED Status: Active Protocol: Document 05/23/23 11:00 AW (Rec: 05/23/23 11:39 AW [id number]) PT-Transfer Assessment Sit to and From Stand Sit to and from Stand Standby Assistance,Use of Upper Extremities Equipment Transfer Assistive Device Gait Belt,Front Wheeled Walker Transfers Transfer Destination Chair,Toilet Transfer Technique ambulated with FWW Transfer Ability Level of Assist Independent,Use of Upper Extremities Comments Mobility Comments Pt demonstrates transfers SBA to mod I using 4WW vs FWW. She prefers the stability of the FWW. Pt ambulates with FWW, interrupted frequently by wet cough. SpO2 95% on 2 L/min via NC at rest, decreasing to 85% without O2 during exertional activity. SpO2 is more stable 90-95% on 2 L/min. Gait Assessment Gait Gait Assistance Required: Standby Assistance,1 Person Assist Distance (Feet) 200 Assistive Devices Assistive Device Gait Belt,Front Wheeled Walker Gait Deviations General Gait Pattern Decreased Stride Length, Decreased Feet Clearance Factors Limiting Gait Function Factors Limiting Gait Function Decreased Activity Tolerance, Decreased Strength,Poor Safety Awareness,Respiratory Distress Comments Gait Comments Pt expresses preference for FWW over 4WW, stating it is more similar to the device she uses at home. No rest breaks required during ambulation today. Stair Climbing Assessment Evaluation Level of Assist On Stairs Standby Assistance Devices Stair Climbing Assistive Devices Left Railing,Right Railing Technique/Endurance Stair Climbing Direction Ascend and Descend Stair Climbing Technique Step Over Step Number of Steps Climbed 3 Stair Climbing Set # Repetitions (reps) 1 Comments Stair Climbing Comments Pt needs assist only with O2 line management PT-Balance Assessment Sitting Balance and Reactions Static Sitting Balance Ability Good Dynamic Sitting Balance Ability Good Standing Balance and Reactions Static Standing Balance Ability Good Dynamic Standing Balance Ability Good Device Used FWW M5 PT-IP Objective Assessments Start: 05/19/23 17:27 Freq: NEEDED Status: Active Protocol: Document 05/19/23 17:28 AB (Rec: 05/19/23 17:49 AB [id number]) Orientation Orientation/Cognition Level of Alertness Confusional State Orientation Name,Situation Language Function Ability No Deficits Noted Safety Awareness Decreased Safety Awareness Memory Description Short Term Impaired Gross Range of Motion Upper Extremity ROM Assessment Within Functional Limits Lower Extremity ROM Assessment Within Functional Limits Strength Upper Extremity Strength Assessment Within Functional Limits Lower Extremity Strength Assessment Within Functional Limits M6 PT-IP Treatment Start: 05/19/23 17:27 Freq: NEEDED Status: Active Protocol: Document 05/23/23 11:00 AW (Rec: 05/23/23 11:39 AW [id number]) Physical Therapy Treatment Education Education Provided Safety Other Treatments Other Treatment Performed Pt education on supplemental O2 needs. M7 PT-IP Assessment and Plan Start: 05/19/23 17:27 Freq: NEEDED Status: Active Protocol: Document 05/23/23 11:00 AW (Rec: 05/23/23 11:39 AW [id number]) PT Summary Assessment and Plan Potential Rehabilitation Potential Good Summary Impairments Pain,ROM,Strength,Balance, Coordination,Sensation,Tone, Cognition,Bed Mobility, Transfers,Gait,Activity Tolerance Progress Towards Goals Progressing Toward Goals,Slow Progress due to Medical Issues Assessment Summary Arlene has some confusion about her supplemental O2 needs and imagines carting around a large tank at home like she has been using in the hospital. PT educates pt on the size and weight of an O2 concentrator and pt is much more amenable to the idea of home O2, even if she uses it only for exertion. HEALTH PSYCHOLOGIST informed. Mobility is grossly SBA to mod I using FWW, no need for rest breaks during session today. PT recommends discharge home with assist. Home PT is indicated to progress pt back toward her functional baseline in terms of strength and activity tolerance. Goals Bed Mobility Goal Independent Transfer Goal Independent,Front Wheeled Walker Gait Goal Independent,Front Wheel Walker Gait Distance 200 Other Goals Pt to transfer independently with LRAD or no AD to show improving functional mobility. Pt to amulate 200ft with LRAD or no AD to show improving tolerance to activity. Pt to ascend/descend 3 steps with right hand rail to show improving LE strength. Days to Meet Goals 10 Frequency of Treatment Frequency Of Treatment Once a Day Treatment Plan Physical Therapy Treatment Plan Bed Mobility Training,Transfer Training,Gait Training, Therapeutic Exercise,Balance Retraining,Discharge Planning, Hot or Cold Pack,Neuromuscular Re-ed,Coordination Retraining ,Manual Therapy Recommendations To Nursing Amount of Assist Needed Standby Assistance Discharge Recommendations PT Discharge Recommendations Home with Assistance,Home Health Transportation Needs at Discharge Private Vehicle
--- NOTE | 2023-05-23 11:12 | CM.DPC ---
DCP Discharge Home with HH Per MD, pt is medically stable to d/c home today with HH and new home O2. Per PT and RN, pt now agreeable to new Home oxygen and RT confirms they have it set up for pt to discharge today as they completed home O2 eval yesterday. SW met bedside with pt and explained role again and initially pt concerned about discharge home and SW provided [facility] Motel Voucher program but then encouraged pt to call local brother again who answered and confirms he is not out of town and will provide transport home today and that the Propane will be filled for heat in the cabin within the next two weeks and space heaters are provided at her cabin. Pt also confirms she is now back to being agreeable with HH. ОЛЬГА Goddard kindly faxed F2F, HH orders and d/c summ not yet available to [facility] to alert them to pt d/c home today. Plan: Patient to d/c home via brother POV and new home O2 set up with new [facility] to follow and LTC Medicaid application completed and faxed for future LTC needs. SENTHIL Spangler
--- NOTE | 2023-05-23 12:39 | PC.NURSE ---
Day shift: Pt A&Ox3, BP elevated, other VSS, 95% on 2L NC. SBA to BR. Pt agreeable to HH and home oxygen services at this time. RT and care management notified. Pt education provided on safe home oxygen use, pt reports wanting to quit smoking, provider notified. Nicotine patch sent to pt's preferred pharmacy. Education provided to pt on avoiding flames, do not smoke around O2, educated that if pt does want to smoke, pt must remove oxygen and be 25ft away from oxygen. Pt verbalized understanding. IV d/c'd, telemetry removed, pt assisted in dressing. Pt wheeled via wheelchair with home o2 tank to private vehicle with brother and PCT at approximately 1240.
--- NOTE | 2023-05-23 18:50 | P.DS_ITS ---
History of Present Illness History of Present Illness Date Patient Seen: 05/18/23 Chief complaint: unable to breathe Narrative: 73 y/o smoker, with likely COPD, presented to ED with worsening shortness of breath, wheezing and generalized weakness, over 2-3 previous days. She was using albuterol MDI at home. In ED hypoxemic, failing mask, started on BiPAP (12/6, 30%). Influenza positive, hyponatremic with acute CHF and uncontrolled HTN. Discharge Providers Provider Date of admission: 05/18/23 22:23 Discharge Date: 05/23/23 Primary care physician: ALIYAH Choi Consults: 05/18/23 23:50 Consult to English Faculty Member Routine Comment: 05/19/23 10:49 Consult to Occupational Therapy Evaluate & Treat Comment: Physician Instructions: Evaluate and treat Consult to Physical Therapy Evaluate & Treat Comment: Physician Instructions: Evaluate and Treat 05/20/23 14:37 Consult to Home Health Routine Comment: Reason For Exam: RN/PT/OT/COREMAKER BENCH/CUSTOMS VERIFIER Discharge provider: Cm Monae DO Summary Hospital Course Discharge Diagnosis: (1) Acute hypoxemic respiratory failure: Status: Acute Plan: Multifactorial - Influenza / COPD exacerbation / CHF Now weaned off Bipap to 2L NC Solumedrol stopped and now on po 40 prednisone daily, home Breo-ellipta, DuoNeb PPI for GI prophylaxis Lasix now stopped down to 1L NC, home O2 eval ordered but patient refusing home O2 (2) Influenza A: Status: Acute Plan: w/ possible mastoiditis Tamiflu x5 days continue broad spectrum abx transitioned to cefdinir (3) Acute CHF: Qualifiers: Heart failure type: diastolic Qualified Code(s): I50.31 - Acute diastolic (congestive) heart failure Status: Acute Plan: Likely due to severe HTN Lasix 40 mg IV given, now off - daily weights, I&O - w/o evidence of ACS - echo with EF 50-55%, diastolic relaxation abnormality, RVSP 46 indicating pulm HTN (4) Hyponatremia: Status: Acute Plan: 124 on admit. Could be from CHF / hypervolemic, from Influenza and significant daily beer intake BMP daily - started on lasix - now down to 124 - check urine sodium, may be dry after diuresis (5) Hypertension: Status: Acute Plan: Severe, likely cause of CHF Continue home lisinopril and amlodipine Started Metoprolol 25 mg bid, prn hydralazine. Hold home metoprolol XL 300 due to potential bronchoconstriction (6) Continuous tobacco abuse: Status: Acute Plan: nicotine patch (7) Alcoholism: Status: Acute Plan: on average 7-9 beers daily, w/o withdrawals in the past Hospital Course: Admitted for the flu and hypoxic resp failure requiring Bipap initially. Improved with tamiflu and weaned to 2L O2. Home O2 recommended but patient refused. Given abx for possible mastoiditis. Discharged home on lower dose metoprolol of 25mg BID as previously on 300mg XL. Exam Vital Signs (past 8 hours): Fraction of Inspired Oxygen 28 SaO2/FiO2 Ratio 328 Oxygen Delivery Method Nasal Cannula Oxygen Flow Rate 3 Narrative Exam Narrative: Sitting in bed, NAD and appears comfortable Resp Other: Wheezing and rhonchi have resolved Decreased sounds diffusely Cardio Other: RRR, EDD at LSB b/l leg swelling GI Other: Not distended, not tender Skin Other: peripheral cyanosis- hands Neuro Other: without deficits Psych Other: alert, oriented flat affect Objective Labs 05/23/23 04:24 05/23/23 04:24 Labs: Laboratory Results - last 24 hr 05/23/23 04:24 WBC 4.7 RBC 3.91 L Hgb 11.9 L Hct 35.2 L MCV 90.0 MCH 30.5 MCHC 33.9 RDW 15.8 H Plt Count 169 Neut % (Auto) 70.5 Lymph % (Auto) 14.6 L [place] % (Auto) 14.7 H Eos % (Auto) 0.0 L Baso % (Auto) 0.2 Neut # (Auto) 3300 Lymph # (Auto) 700 L [place] # (Auto) 700 Eos # (Auto) 0 Baso # (Auto) 0 Sodium 129 L Potassium 4.1 Chloride 91 L Carbon Dioxide 36 H BUN 15 Creatinine 0.63 Estimated GFR > 60 BUN/Creatinine Ratio 23.8 H Glucose 88 Calcium 9.5 PFSH Medical History Alcoholism Continuous tobacco abuse Hypertension Social History household members: none Smoking Status: Current every day smoker Discharge Plan Discharge Plan Patient Disposition: Home Health Service Provider Discharge Comment: You were admitted for a COPD exacerbation from the flu. You improved with treatment. I've sent nicotine patches to help you quit smoking. Discharge orders & Medications Prescriptions: New nicotine 21 mg/24 hr Patch 24 Hour 21 mg topical DAILY Qty: 28 0RF Continued albuterol sulfate 90 mcg/actuation HFA aerosol inhaler 1 - 2 puff inhalation Q4H PRN (Reason: Shortness Of Breath Or Wheezing) amlodipine 5 mg tablet 5 mg PO DAILY escitalopram oxalate 5 mg tablet 5 mg PO DAILY furosemide 20 mg tablet 20 mg PO QAM fluticasone furoate-vilanterol [Breo Ellipta] 200-25 mcg/dose blister with device 1 ea inhalation DAILY meloxicam 15 mg tablet 15 mg PO DAILY metoprolol succinate 100 mg tablet extended release 24 hr 300 mg PO DAILY pantoprazole 40 mg tablet,delayed release (DR/EC) 40 mg PO DAILY gabapentin 300 mg capsule 600 mg PO BID lisinopril 40 mg tablet 40 mg PO QPM Follow up/Referrals: Carmelina Camargo FNP-C [Primary Care Provider] - 2 Weeks Visit Report/Discharge Packet Instructions: Smoking Cessation Drugs: Nicotine Replacement Products, DI for Heart Failure, DI for Oxygen Therapy -- Adult, DI for Influenza -- Adult Stand Alone Forms: Patient Portal/API, Stroke Signs & Symptoms Discharge Data Primary Care Provider: Carmelina Camargo
--- NOTE | 2023-06-03 14:52 | CM.DPNOTE ---
Call from [facility] saying they cannot get a hold of Arlene, updated that patient discharged. [facility] informs this ESTHETICIAN/SPA COORDINATOR that a letter will be mailed to Arlene because she cannot be reached by phone. MESERET
== END 2023-05-23 12:40 | disposition home health service (06) | DRG 291 ==
LOC: ED 22:22 → AC 22:24 → ICU 22:38
PROVIDERS: Student in an Organized Health Care Education/Training Program; Admitting Provider Internal Medicine; Emergency Provider Emergency Medicine; PCP Registered Nurse; Referring Provider Emergency Medicine; Visit Provider Internal Medicine
DX: I11.0 Hypertensive heart disease with heart failure (principal); I50.31 Acute diastolic (congestive) heart failure; J96.01 Acute respiratory failure with hypoxia; J44.1 Chronic obstructive pulmonary disease with (acute) exacerbation; E87.1 Hypo-osmolality and hyponatremia; F17.200 Nicotine dependence, unspecified, uncomplicated; J10.1 Influenza due to other identified influenza virus with other respiratory manifestations; F10.20 Alcohol dependence, uncomplicated
CPT/HCPCS: 36415; 36600; 70450; 71045; 80048; 80053; 80202; 82550; 82805; 83036; 83605; 83735; 83880; 84300; 84484; 85025; 85610; 85730; 87633; 87797; 93005; 93010; 93306; 94618; 94640; 94660; 94762; 96374; 96375; 97110; 97116; 97129; 97162; 97166; 97530; 99284; 99291; J0360; J0692; J1650; J1940; J2060; J2930; J3475; J7613

== ENCOUNTER 2023-06-05 16:37 | Inpatient (IN) | payer MEDICARE, MEDICAID, SELFPAY ==
[2023-05-18 22:31] VITALS: BMI 24.8
[2023-05-19 01:10] VITALS: O2SAT 93
[2023-05-19 03:06] VITALS: RESP 18
[2023-06-05] VITALS (22 sets, daily range): BP systolic 91–155; BP diastolic 57–92; PULSE 95–144; RESP 23–59; TEMP 37.2–37.9; O2SAT 82–98; BMI 24.0; BMI 22.4
--- NOTE | 2023-06-05 16:54 | DI.RAD.S_ITS ---
PROCEDURE: XR CHEST 1V INDICATIONS: Shortness of breath TECHNIQUE: One view of the chest was acquired. COMPARISON: [facility], CR, XR CHEST 1V, 05/18/2023, 20:40. [facility], CR, XR CHEST 1V, 11/16/2020, 18:45. FINDINGS: Surgical changes and devices: None. Lungs and pleura: Right basilar consolidation. Increased pulmonary markings. Mediastinum: Mediastinal contours appear normal. Heart size is normal. Bones and chest wall: No suspicious bony lesions. Overlying soft tissues appear unremarkable. IMPRESSION: Right basilar consolidation, concerning for pneumonia. Recommend chest x-ray follow-up in 1-2 months to ensure resolution. Increased pulmonary markings, which may indicate superimposed volume overload/pulmonary edema. Dictated by: Miguel Sanchez M.D. on 06/05/2023 at 16:31 Approved by: Miguel Sanchez M.D. on 06/05/2023 at 16:35
--- NOTE | 2023-06-05 17:07 | ED_ITS ---
HPI - General Adult General Chief complaint: Shortness of Breath/Dyspnea Stated complaint: Wound Time Seen by Provider: 06/05/23 16:53 Source: patient and EMS Mode of arrival: EMS Related Data Home Medications Medication Instructions Recorded Confirmed albuterol sulfate 90 mcg/actuation 1 - 2 puff inhalation Q4H PRN 05/19/23 05/19/23 aerosol inhaler Shortness Of Breath Or Wheezing amlodipine 5 mg tablet 5 mg PO DAILY 05/19/23 05/19/23 escitalopram oxalate 5 mg tablet 5 mg PO DAILY 05/19/23 05/19/23 fluticasone furoate 200 1 ea inhalation DAILY 05/19/23 05/19/23 mcg-vilanterol 25 mcg/dose inhalation powder (Breo Ellipta) furosemide 20 mg tablet 20 mg PO QAM 05/19/23 05/19/23 gabapentin 300 mg capsule 600 mg PO BID Nerve pain 05/19/23 05/19/23 lisinopril 40 mg tablet 40 mg PO QPM HTN 05/19/23 05/19/23 meloxicam 15 mg tablet 15 mg PO DAILY 05/19/23 05/19/23 metoprolol succinate 100 mg 300 mg PO DAILY 05/19/23 05/19/23 tablet,extended release 24 hr pantoprazole 40 mg tablet,delayed 40 mg PO DAILY 05/19/23 05/19/23 release Previous Rx's Medication Instructions Recorded nicotine 21 mg/24 hr daily 21 mg topical DAILY #28 ea 05/23/23 transdermal patch Allergies Allergy/AdvReac Type Severity Reaction Status Date / Time cefazolin Allergy Mild Verified 05/21/23 15:42 Sulfa (Sulfonamide Allergy Unknown Verified 05/20/23 07:07 Antibiotics) tetracycline Allergy Unknown Verified 05/20/23 07:07 zolpidem Allergy Unknown Verified 05/20/23 07:07 Patient History Medical History Alcoholism Continuous tobacco abuse Hypertension Social History household members: none Smoking Status: Current every day smoker Smoking Status: Current every day smoker tobacco type: cigarettes alcohol intake frequency: 3 or more drinks per day Alcohol type: beer Substance Use Type: does not use Exam Initial Vital Signs Initial Vital Signs: Vital Signs Temperature 99.3 F 06/05/23 16:40 Pulse Rate 144 H 06/05/23 16:40 Respiratory Rate 32 H 06/05/23 16:40 Blood Pressure 119/75 06/05/23 16:40 Pulse Oximetry 90 L 06/05/23 16:40 Oxygen Delivery Method Nasal Cannula 06/05/23 16:40 Course Orders Ordered: ED Orders 06/05/23 16:53 Complete Blood Count AUTO DIFF Stat Comprehensive Metabolic Panel Stat Lactate (Lactic Acid) Stat Lipase Stat NT-proBNP (BNP-Adult 18+) Stat Procalcitonin Stat Troponin & CK Cardiac Panel Stat 06/05/23 16:54 XR chest 1V Stat EKG-12 Lead Stat RT Consult Eval and Treat Now 06/05/23 16:55 Respiratory Panel (Film Array) Stat 06/05/23 17:04 Consult to MEASUREMENT AND VERIFICATION ENGINEER - Leather Belt Maker Stat Vital Signs Vital signs: Vital Signs - 8 hr 06/05/23 16:40 Temperature 99.3 F Pulse Rate 144 H Respiratory Rate 32 H Blood Pressure 119/75 Pulse Oximetry 90 L Oxygen Delivery Method Nasal Cannula Medical Decision Making Lab Data Labs: Point of Care Testing Glucose POC 106 Point of care testing: Point of Care Testing Glucose POC 106 Discharge Plan Departure Prescriptions: No Action albuterol sulfate 90 mcg/actuation HFA aerosol inhaler 1 - 2 puff inhalation Q4H PRN (Reason: Shortness Of Breath Or Wheezing) amlodipine 5 mg tablet 5 mg PO DAILY escitalopram oxalate 5 mg tablet 5 mg PO DAILY furosemide 20 mg tablet 20 mg PO QAM fluticasone furoate-vilanterol [Breo Ellipta] 200-25 mcg/dose blister with device 1 ea inhalation DAILY meloxicam 15 mg tablet 15 mg PO DAILY metoprolol succinate 100 mg tablet extended release 24 hr 300 mg PO DAILY pantoprazole 40 mg tablet,delayed release (DR/EC) 40 mg PO DAILY gabapentin 300 mg capsule 600 mg PO BID lisinopril 40 mg tablet 40 mg PO QPM nicotine 21 mg/24 hr Patch 24 Hour 21 mg topical DAILY Qty: 28 0RF Referrals: Carmelina Camargo FNP-C [Primary Care Provider] -
[2023-06-05 17:28] LABS: Lactate (Lactic Acid) 1.6 mmol/L (0.7-2.1)
[2023-06-05 17:29] LABS: Alanine Aminotransferase 15 IU/L (<35); Albumin 3.4 g/dL (3.5-5.0); Albumin Globulin Ratio 0.9 (1.0-2.8); Alkaline Phosphatase 74 U/L (38-126); Aspartate Aminotransferase 21 IU/L (14-36); BUN Creatinine Ratio 23.6 (6-22); Bilirubin Total 1.9 mg/dL (0.2-1.3); Blood Urea Nitrogen 25 mg/dL (7-17); Calcium 9.4 mg/dL (8.4-10.2); Carbon Dioxide 25 mmol/L (22-32); Chloride 90 mmol/L (98-107); Creatine Kinase < 20 U/L (30-135); Estimated Glomerular Filt Rate 56 mL/min (>60); Globulin 3.9 g/dL (1.7-4.1); Glucose 113 mg/dL (80-110); HEMOLYSIS < 15 (0-50); Lipase 100 U/L (23-300); Sodium 124 mmol/L (137-145); Total Protein 7.3 g/dL (6.3-8.2)
[2023-06-05 17:38] LABS: Add Manual Diff / Slide Review NO; Basophils Absolute Auto 0 /uL (0-100); Basophils Percent Auto 0.4 % (0-2); Eosinophils Absolute Auto 0 /uL (0-450); Eosinophils Percent Auto 0.1 % (2-4); Hematocrit 33.4 % (36-46); Hemoglobin 11.4 g/dL (12.0-16.0); Lymphocytes Absolute Auto 600 /uL (1100-4500); Lymphocytes Percent Auto 5.3 % (25-40); Mean Corpuscular HGB Conc 34.1 % (30-36); Mean Corpuscular Hemoglobin 30.2 PG (26-34); Mean Corpuscular Volume 88.5 fL (80-100); Monocytes Absolute Auto 1100 /uL (0-900); Monocytes Percent Auto 9.8 % (3-14); Neutrophils Absolute Auto 9300 /uL (1500-7000); Neutrophils Percent Auto 84.4 % (50-75); Platelet Count 266 X10^3/uL (150-400); Red Blood Cell Count 3.78 X10^6/uL (4.0-5.2); Red Cell Distribution Width 14.9 % (11.6-14.8)
[2023-06-05 17:41] LABS: NT-proBNP (BNP-Adult 18+) 3260 pg/mL (<125); Troponin I 0.068 ng/mL (0.01-0.034)
[2023-06-05 17:45] LABS: Procalcitonin 1.06 ng/mL (<0.5)
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
[2023-06-05 18:04] LABS: Adenovirus Not Detected (Not Detect); B. parapertussis Not Detected (Not Detecte); Bordetella pertussis Not Detected (Not Detect); Chlamydophila pneumoniae Not Detected (Not Detect); Coronavirus 229E Not Detected (Not Detect); Coronavirus HKU1 Not Detected (Not Detect); Coronavirus NL 63 Not Detected (Not Detect); Coronavirus OC43 Not Detected (Not Detect); Human Metapneumovirus Not Detected (Not Detect); Human Rhinovirus/Enterovirus Not Detected (Not Detect); Influenza A Not Detected (Not Detect); Influenza B Not Detected (Not Detect); Mycoplasma pneumoniae Not Detected (Not Detect); Parainfluenza Virus 1 Not Detected (Not Detect); Parainfluenza Virus 2 Not Detected (Not Detect); Parainfluenza Virus 3 Not Detected (Not Detect); Parainfluenza Virus 4 Not Detected (Not Detect); Respiratory Syncytial Virus Not Detected (Not Detect); SARS- CoV-2 Not Detected (Not Detecte)
--- NOTE | 2023-06-05 18:28 | ED.SOB ---
HPI - SOB/Dyspnea General Chief Complaint: Shortness of Breath/Dyspnea Stated Complaint: Wound Time Seen by Provider: 06/05/23 16:53 Source: patient and EMS Mode of arrival: EMS Limitations: no limitations History of Present Illness HPI Narrative: Is a 73-year-old history of COPD, recent admission with influenza a, and new diagnosis of congestive heart failure. She presented May 18 was discharged on May 22. She actually went home with 2-3 L of oxygen. She reports that she lost her nasal cannula couple days ago. EMS found her with O2 % in the 70%. She denies any chest pain palpitations or real shortness of breath. She feels progressively weak. She says that she is able to get up and go to the restroom although she is in a brief. She appears to be an AFib on the monitor she has no known history of atrial fibrillation. She is weak but oriented. Difficult to get history. She denies cough. She is now on 4 L. Nursing staff reports that there are pressure wounds in her perineal area. Sounds as though she lives alone a friend called 911 today out of concern Related Data Home Medications Medication Instructions Recorded Confirmed albuterol sulfate 90 mcg/actuation 1 - 2 puff inhalation Q4H PRN 05/19/23 06/05/23 aerosol inhaler Shortness Of Breath Or Wheezing amlodipine 5 mg tablet 5 mg PO DAILY 05/19/23 06/05/23 escitalopram oxalate 5 mg tablet 5 mg PO DAILY 05/19/23 06/05/23 fluticasone furoate 200 1 ea inhalation DAILY 05/19/23 06/05/23 mcg-vilanterol 25 mcg/dose inhalation powder (Breo Ellipta) furosemide 20 mg tablet 20 mg PO QAM 05/19/23 06/05/23 gabapentin 300 mg capsule 600 mg PO BID Nerve pain 05/19/23 06/05/23 lisinopril 40 mg tablet 40 mg PO QPM HTN 05/19/23 06/05/23 meloxicam 15 mg tablet 15 mg PO DAILY 05/19/23 06/05/23 metoprolol succinate 100 mg 300 mg PO DAILY 05/19/23 06/05/23 tablet,extended release 24 hr pantoprazole 40 mg tablet,delayed 40 mg PO DAILY 05/19/23 06/05/23 release Previous Rx's Medication Instructions Recorded nicotine 21 mg/24 hr daily 21 mg topical DAILY #28 ea 05/23/23 transdermal patch Allergies Allergy/AdvReac Type Severity Reaction Status Date / Time cefazolin Allergy Mild Verified 05/21/23 15:42 Sulfa (Sulfonamide Allergy Unknown Verified 05/20/23 07:07 Antibiotics) tetracycline Allergy Unknown Verified 05/20/23 07:07 zolpidem Allergy Unknown Verified 05/20/23 07:07 Patient History Medical History Alcoholism Continuous tobacco abuse Hypertension Social History household members: none Smoking Status: Current every day smoker Smoking Status: Current every day smoker tobacco type: cigarettes alcohol intake frequency: 3 or more drinks per day Alcohol type: beer Substance Use Type: does not use Exam Initial Vital Signs Initial Vital Signs: Vital Signs Temperature 99.3 F 06/05/23 16:40 Pulse Rate 144 H 06/05/23 16:40 Respiratory Rate 32 H 06/05/23 16:40 Blood Pressure 119/75 06/05/23 16:40 Pulse Oximetry 90 L 06/05/23 16:40 Oxygen Delivery Method Nasal Cannula 06/05/23 16:40 GENERAL: Alert week 73-year-old female HEENT: Head atraumatic,EOMI, pupils reactive, face symmetric, [moist] mucous membranes CARDIOVASCULAR: Tachycardic irregularly irregular RESPIRATORY: Coarse breath sounds bilaterally no tachypnea or respiratory distress ABDOMEN: Soft, nontender. Normoactive bowel sounds all 4 quadrants. No guarding or rebound. EXTREMITIES: Normal range of motion, no clubbing or edema. Neurovascularly intact NEUROLOGICAL: Alert and oriented x4.Normal gait and speech. Cranial nerves II through XII grossly intact. SKIN: Warm, dry, no laceration, no petechiae, no rashes or lesions. See nursing notes for pressure wounds Course Orders Ordered: ED Orders 06/05/23 16:50 Respiratory Panel (Film Array) Stat 06/05/23 16:54 XR chest 1V Stat EKG-12 Lead Stat RT Consult Eval and Treat Now 06/05/23 17:04 Consult to LEAD SOFTWARE TEST ENGINEER - Call Or Contact Centre Coach Stat 06/05/23 17:09 Complete Blood Count AUTO DIFF Stat Comprehensive Metabolic Panel Stat ETOH [Ethanol (ETOH)] Stat Lactate (Lactic Acid) Stat Lipase Stat NT-proBNP (BNP-Adult 18+) Stat Procalcitonin Stat TSH [Thyroid Stimulating Hormone] Stat Troponin & CK Cardiac Panel Stat 06/05/23 18:11 EKG-12 Lead Routine 06/05/23 18:28 CT angio chest PE protocol Stat 06/05/23 18:55 Urinalysis and Microscopic Stat 06/05/23 19:20 Trop I [Troponin I] Stat 06/05/23 20:24 ABG [Arterial Blood Gas] Stat 06/05/23 21:34 RT Consult Eval and Treat NOW 06/06/23 04:00 Basic Metabolic Panel DAILY Complete Blood Count AUTO DIFF DAILY NT-proBNP (BNP-Adult 18+) DAILY Troponin I DAILY Acetaminophen (Acetaminophen 325 Mg Tablet) 650 mg PO Q6H KAREEM Hydrocodone Bitart/Acetaminophen (Hydrocodone/Acet 5/325 Tablet) 1 tab PO Q4H PRN PRN Reason: Pain, Moderate (4-6) Albuterol (Albuterol 2.5 Mg/3 Ml Neb (Adult)) 2.5 mg INH [id number] PRN PRN Reason: Shortness Of Breath Albuterol/Ipratropium (Albuterol/Ipratropium 3 Ml Ampul) 3 ml INH RTBID KAREEM Amlodipine Besylate (Amlodipine 5 Mg Tablet) 5 mg PO DAILY KAREEM Budesonide (Budesonide 0.5 Mg/2 Ml Neb) 0.5 mg INH RTBID KAREEM Enoxaparin Sodium (Enoxaparin 40 Mg/0.4 Ml Syringe) 40 mg SUBCUT DAILY [facility] Escitalopram Oxalate (Escitalopram 10 Mg Tablet) 5 mg PO DAILY [facility] Furosemide (Furosemide 40 Mg/4 Ml Vial) 40 mg IV Q12HR [facility] Gabapentin (Gabapentin 300 Mg Capsule) 600 mg PO BID [facility] Cefepime HCl 1 gm/ Sodium (Chloride) 100 mls @ 200 mls/hr IV Q12H [facility] Meloxicam (Meloxicam 7.5 Mg Tablet) 15 mg PO DAILY [facility] Naloxone HCl (Naloxone 0.4 Mg/Ml Vial) 0.2 mg IV Q2MIN PRN PRN Reason: Opiate Reversal Pantoprazole Sodium (Pantoprazole Dr 40 Mg Tablet) 40 mg PO 0700 KAREEM Discontinued Medications Acetaminophen (Acetaminophen 325 Mg Tablet) 650 mg PO Q6H KAREEM Furosemide (Furosemide 40 Mg/4 Ml Vial) 20 mg IV NOW ONE Stop: 06/05/23 18:29 Last Admin: 06/05/23 18:58 Dose: 20 mg Documented By: YULIET Cefepime HCl 2 gm/ Sodium (Chloride) 100 mls @ 200 mls/hr IV NOW ONE Stop: 06/05/23 18:29 Last Infusion: 06/05/23 19:39 Dose: Infused Documented By: Admin: 06/05/23 18:58 Dose: 200 mls/hr Documented By: YULIET Vancomycin HCl (Vancomycin) 1,000 mg in 200 mls @ 200 mls/hr IV NOW ONE Stop: 06/05/23 19:27 Last Infusion: 06/05/23 20:59 Dose: Infused Documented By: Admin: 06/05/23 19:54 Dose: 200 mls/hr Documented By: NINOSKA Non-Formulary Medication (Fluticasone Furoate-Vilanterol [Breo Ellipta]) 1 each INHALATION DAILY [facility] Vital Signs Vital signs: Vital Signs - 8 hr 06/05/23 16:40 06/05/23 16:44 06/05/23 17:00 Temperature 99.3 F Pulse Rate 144 H 138 H 135 H Respiratory Rate 32 H 32 H 27 H Blood Pressure 119/75 Pulse Oximetry 90 L 96 90 L Oxygen Delivery Method Nasal Cannula Oxygen Flow Rate Fraction of Inspired Oxygen 06/05/23 17:30 06/05/23 17:30 06/05/23 18:00 Temperature Pulse Rate 134 H Respiratory Rate Blood Pressure 102/59 L 134/72 Pulse Oximetry 93 Oxygen Delivery Method Nasal Cannula Oxygen Flow Rate 4 Fraction of Inspired Oxygen 06/05/23 18:00 06/05/23 18:30 06/05/23 18:30 Temperature 98.9 F Pulse Rate 130 H 139 H Respiratory Rate 30 H 24 Blood Pressure 117/80 Pulse Oximetry 94 92 Oxygen Delivery Method Nasal Cannula Nasal Cannula Oxygen Flow Rate 4 4 Fraction of Inspired Oxygen 06/05/23 19:00 06/05/23 19:00 06/05/23 19:30 Temperature 99.0 F Pulse Rate 136 H Respiratory Rate 59 H Blood Pressure 155/90 H 91/64 Pulse Oximetry 91 Oxygen Delivery Method Nasal Cannula Oxygen Flow Rate 4 Fraction of Inspired Oxygen 06/05/23 19:30 06/05/23 20:00 06/05/23 20:02 Temperature 99.9 F H Pulse Rate 136 H 137 H Respiratory Rate 25 H 34 H Blood Pressure Pulse Oximetry 90 L 82 L 83 L Oxygen Delivery Method Nasal Cannula Nasal Cannula Oxygen Flow Rate 4 6 Fraction of Inspired Oxygen 06/05/23 20:04 06/05/23 20:30 06/05/23 20:37 Temperature 100.0 F H Pulse Rate 136 H 136 H Respiratory Rate 33 H 33 H Blood Pressure Pulse Oximetry 89 L 92 92 Oxygen Delivery Method Oximask Oxygen Flow Rate 8 Fraction of Inspired Oxygen 06/05/23 20:39 06/05/23 20:55 06/05/23 20:55 Temperature 100.0 F H Pulse Rate 118 H Respiratory Rate 30 H Blood Pressure 122/65 Pulse Oximetry 97 Oxygen Delivery Method High Flow Nasal Cannula Oxygen Flow Rate 25 Fraction of Inspired Oxygen 60 06/05/23 21:00 06/05/23 21:00 06/05/23 21:15 Temperature 100.0 F H 100.2 F H Pulse Rate 116 H 116 H Respiratory Rate 29 H 26 H Blood Pressure 121/75 Pulse Oximetry 97 97 Oxygen Delivery Method Oxygen Flow Rate Fraction of Inspired Oxygen 06/05/23 21:15 06/05/23 21:30 06/05/23 21:30 Temperature 100.0 F H Pulse Rate 111 H Respiratory Rate 25 H Blood Pressure 99/57 L 100/62 Pulse Oximetry 97 Oxygen Delivery Method Oxygen Flow Rate Fraction of Inspired Oxygen MDM - SOB/Dyspnea Lab Data 06/05/23 17:09 06/05/23 17:09 Labs: Lab Results 06/05/23 06/05/23 06/05/23 Range/Units 16:50 17:09 18:55 WBC 11.0 (4.5-11.0) X10^3/uL RBC 3.78 L (4.0-5.2) X10^6/uL Hgb 11.4 L (12.0-16.0) g/dL Hct 33.4 L (36-46) % MCV 88.5 (80-100) fL MCH 30.2 (26-34) PG MCHC 34.1 (30-36) % RDW 14.9 H (11.6-14.8) % Plt Count 266 (150-400) X10^3/uL Neut % (Auto) 84.4 H (50-75) % Lymph % (Auto) 5.3 L (25-40) % Teller % (Auto) 9.8 (3-14) % Eos % (Auto) 0.1 L (2-4) % Baso % (Auto) 0.4 (0-2) % Neut # (Auto) 9300 H (8920-7440) /uL Lymph # (Auto) 600 L (5746-0569) /uL Teller # (Auto) 1100 H (0-900) /uL Eos # (Auto) 0 (0-450) /uL Baso # (Auto) 0 (0-100) /uL ABG Sample Site ABG pH (7.35-7.45) ABG pCO2 (35-45) mmHg ABG pO2 (80-100) mmHg ABG HCO3 (23-27) mmol/L ABG Total CO2 (23-27) mmol/L ABG O2 Saturation (95-100) % ABG Base Excess (-2-3) mmol/L FiO2 Sodium 124 L (137-145) mmol/L Potassium 4.0 (3.4-5.1) mmol/L Chloride 90 L (98-107) mmol/L Carbon Dioxide 25 (22-32) mmol/L BUN 25 H (7-17) mg/dL Creatinine 1.06 H (0.52-1.04) mg/dL Estimated GFR 56 L (>60) mL/min BUN/Creatinine Ratio 23.6 H (6-22) Glucose 113 H (80-110) mg/dL Lactate 1.6 (0.7-2.1) mmol/L Calcium 9.4 (8.4-10.2) mg/dL Total Bilirubin 1.9 H (0.2-1.3) mg/dL AST 21 (14-36) IU/L ALT 15 (<35) IU/L Alkaline Phosphatase 74 (38-126) U/L Total Creatine Kinase < 20 L (30-135) U/L Troponin I 0.068 H (0.01-0.034) ng/mL NT-Pro-B Natriuret Pep 3260 H (<125) pg/mL Total Protein 7.3 (6.3-8.2) g/dL Albumin 3.4 L (3.5-5.0) g/dL Globulin 3.9 (1.7-4.1) g/dL Albumin/Globulin Ratio 0.9 L (1.0-2.8) Lipase 100 (23-300) U/L Procalcitonin 1.06 H (<0.5) ng/mL TSH 1.51 (0.47-4.68) uIU/mL Urine Color Yellow Urine Appearance Clear Urine pH 6.0 (4.5-8.0) Ur Specific Pike 1.015 (1.000-1.035) Urine Protein Trace H (Negative) Urine Glucose (UA) Negative (Negative) g/dL Urine Ketones Trace H (NEGATIVE) Urine Occult Blood Negative (Negative) Urine Nitrate Negative (Negative) Urine Bilirubin 1+ H (NEGATIVE) Ur Bilirubin Confirm Cancelled Urine Urobilinogen 1.0 (0.2) E.U./dL Ur Leukocyte Esterase Negative (NEGATIVE) Urine RBC None seen (0-5/HPF) Urine WBC 0-1/hpf (0-5/HPF) Ur Squamous Epith Cells 0-1 /hpf (0-5/HPF) Ur Renal Epithelial Cell 0-1/hpf (0-1/HPF) Urine Bacteria None seen (None) Hyaline Casts 10-30/lpf (None) Ur Culture Indicated? Cult not indicated Ethyl Alcohol < 10 ( - 10) mg/dL Chlamy pneumoniae PCR Not detected (Not Detect) Adenovirus (PCR) Not detected (Not Detect) B.parapertussis DNA PCR Not detected (Not Detecte) Coronavirus OC43 (PCR) Not detected (Not Detect) Coronavirus HKU1 (PCR) Not detected (Not Detect) Coronavirus 229E (PCR) Not detected (Not Detect) SARS-CoV-2 (PCR) Not detected (Not Detecte) Coronavirus NL63 (PCR) Not detected (Not Detect) Human Metapneumovir PCR Not detected (Not Detect) Influenza Type A (PCR) Not detected (Not Detect) Influenza Type B (PCR) Not detected (Not Detect) M. pneumoniae (PCR) Not detected (Not Detect) Parainfluenza 1 (PCR) Not detected (Not Detect) Parainfluenza 2 (PCR) Not detected (Not Detect) Parainfluenza 3 (PCR) Not detected (Not Detect) Parainfluenza 4 (PCR) Not detected (Not Detect) RSV (PCR) Not detected (Not Detect) Entero/Rhino (PCR) Not detected (Not Detect) 06/05/23 06/05/23 Range/Units 19:20 20:24 WBC (4.5-11.0) X10^3/uL RBC (4.0-5.2) X10^6/uL Hgb (12.0-16.0) g/dL Hct (36-46) % MCV (80-100) fL MCH (26-34) PG MCHC (30-36) % RDW (11.6-14.8) % Plt Count (150-400) X10^3/uL Neut % (Auto) (50-75) % Lymph % (Auto) (25-40) % Teller % (Auto) (3-14) % Eos % (Auto) (2-4) % Baso % (Auto) (0-2) % Neut # (Auto) (2240-4982) /uL Lymph # (Auto) (7438-9658) /uL Teller # (Auto) (0-900) /uL Eos # (Auto) (0-450) /uL Baso # (Auto) (0-100) /uL ABG Sample Site Left radial ABG pH 7.35 (7.35-7.45) ABG pCO2 45.4 H (35-45) mmHg ABG pO2 70 L (80-100) mmHg ABG HCO3 25 (23-27) mmol/L ABG Total CO2 27 (23-27) mmol/L ABG O2 Saturation 93 L (95-100) % ABG Base Excess 0.0 (-2-3) mmol/L FiO2 65 Sodium (137-145) mmol/L Potassium (3.4-5.1) mmol/L Chloride (98-107) mmol/L Carbon Dioxide (22-32) mmol/L BUN (7-17) mg/dL Creatinine (0.52-1.04) mg/dL Estimated GFR (>60) mL/min BUN/Creatinine Ratio (6-22) Glucose (80-110) mg/dL Lactate (0.7-2.1) mmol/L Calcium (8.4-10.2) mg/dL Total Bilirubin (0.2-1.3) mg/dL AST (14-36) IU/L ALT (<35) IU/L Alkaline Phosphatase (38-126) U/L Total Creatine Kinase (30-135) U/L Troponin I 0.101 H (0.01-0.034) ng/mL NT-Pro-B Natriuret Pep (<125) pg/mL Total Protein (6.3-8.2) g/dL Albumin (3.5-5.0) g/dL Globulin (1.7-4.1) g/dL Albumin/Globulin Ratio (1.0-2.8) Lipase (23-300) U/L Procalcitonin (<0.5) ng/mL TSH (0.47-4.68) uIU/mL Urine Color Urine Appearance Urine pH (4.5-8.0) Ur Specific Pike (1.000-1.035) Urine Protein (Negative) Urine Glucose (UA) (Negative) g/dL Urine Ketones (NEGATIVE) Urine Occult Blood (Negative) Urine Nitrate (Negative) Urine Bilirubin (NEGATIVE) Ur Bilirubin Confirm Urine Urobilinogen (0.2) E.U./dL Ur Leukocyte Esterase (NEGATIVE) Urine RBC (0-5/HPF) Urine WBC (0-5/HPF) Ur Squamous Epith Cells (0-5/HPF) Ur Renal Epithelial Cell (0-1/HPF) Urine Bacteria (None) Hyaline Casts (None) Ur Culture Indicated? Ethyl Alcohol ( - 10) mg/dL Chlamy pneumoniae PCR (Not Detect) Adenovirus (PCR) (Not Detect) B.parapertussis DNA PCR (Not Detecte) Coronavirus OC43 (PCR) (Not Detect) Coronavirus HKU1 (PCR) (Not Detect) Coronavirus 229E (PCR) (Not Detect) SARS-CoV-2 (PCR) (Not Detecte) Coronavirus NL63 (PCR) (Not Detect) Human Metapneumovir PCR (Not Detect) Influenza Type A (PCR) (Not Detect) Influenza Type B (PCR) (Not Detect) M. pneumoniae (PCR) (Not Detect) Parainfluenza 1 (PCR) (Not Detect) Parainfluenza 2 (PCR) (Not Detect) Parainfluenza 3 (PCR) (Not Detect) Parainfluenza 4 (PCR) (Not Detect) RSV (PCR) (Not Detect) Entero/Rhino (PCR) (Not Detect) Point of Care Testing Glucose POC [address] scan - chest: Radiologist's Impression: PROCEDURE: CT ANGIO CHEST PE PROTOCOL INDICATIONS: new afib TECHNIQUE: After the administration of intravenous contrast, 2 mm thick sections acquired from the pulmonary apices to the posterior costophrenic angles. 3-dimensional maximum intensity projection (MIP) coronal and sagittal reformats were then acquired through the thorax. For radiation dose reduction, the following was used: automated exposure control, adjustment of mA and/or kV according to patient size. COMPARISON: [facility], , XR CHEST 1V, 06/05/2023, 17:11. FINDINGS: Image quality: Diagnostic. Pulmonary arteries: Pulmonary arteries are normal in size, and demonstrate no intraluminal filling defects to suggest central pulmonary embolism. Lungs and pleura: Right lower lobe consolidation is suspicious for pneumonia. Multifocal tree-in-bud nodularity throughout both lungs. No pleural effusions or pneumothorax. Central and peripheral airways are patent. Mediastinum: Heart size is enlarged, without pericardial effusion. Mild coronary artery calcifications. Multiple prominent mediastinal lymph nodes and right hilar lymph nodes are seen that are not significantly enlarged by CT size criteria. Thoracic aorta is normal in caliber and enhancement. Esophagus is normal in caliber, without hiatal hernia. Bones and chest wall: No suspicious bony lesions. Old healed rib fractures are noted. No axillary or supraclavicular adenopathy. No thyroid nodules which require sonographic follow up, per consensus guidelines. Upper Abdomen: Visualized upper abdominal solid organs appear normal in the early arterial phase of enhancement. IMPRESSION: 1. No acute pulmonary embolus. 2. Right lower lobe consolidation and diffuse tree-in-bud nodularity throughout both lungs are suspicious for pneumonia. 3. Mild cardiomegaly. 4. Mildly prominent mediastinal lymph nodes are most likely reactive. Approved by: Jorge Luis Weems M.D. on 06/05/2023 at 20:28 Chest x-ray: Radiologist's Impression: PROCEDURE: XR CHEST 1V INDICATIONS: Shortness of breath TECHNIQUE: One view of the chest was acquired. COMPARISON: [facility], , XR CHEST 1V, 05/18/2023, 20:40. [facility], , XR CHEST 1V, 11/16/2020, 18:45. FINDINGS: Surgical changes and devices: None. Lungs and pleura: Right basilar consolidation. Increased pulmonary markings. Mediastinum: Mediastinal contours appear normal. Heart size is normal. Bones and chest wall: No suspicious bony lesions. Overlying soft tissues appear unremarkable. IMPRESSION: Right basilar consolidation, concerning for pneumonia. Recommend chest x-ray follow-up in 1-2 months to ensure resolution. Increased pulmonary markings, which may indicate superimposed volume overload/pulmonary edema. Dictated by: Miguel Sanchez M.D. on 06/05/2023 at 16:31 ECG Data Interpretation: 1. Irregular rhythm no P weighs hospital PVC presumed AFib new from prior EKG EKG 2. Persistent irregular rhythm rate 120 similar to prior no obvious ST changes no P waves atrial fibrillation MDM Narrative Medical decision making narrative: Patient is 73-year-old female history of COPD recent diagnosis of CHF and influenza a. She is supposed to be on home oxygen but has not been on home oxygen for a couple of days presents today with hypoxia and new onset atrial fib with RVR. Heart rate is quite irregular rate up into the 140s. Troponin indeterminate and rising 0.068-->0.101. Actually suspect the elevated troponin is likely due to AFib with RVR that has been uncontrolled in ongoing hypoxia I do not suspect acute coronary syndrome. She also have some elevated CHF slightly elevated 3260 previously 4900. She would an echocardiogram 05/18/2023 which showed an EF of 50-55 %. She is hypoxic requiring 8 L of a mask still tachypneic and tachycardic she eventually switched over to high-flow nasal cannula she is tolerating. CT angio was done to rule out any sort of pulmonary embolism with recent admission to hospital. CTA confirms no pulmonary embolism but is suspicious for pneumonia and mild cardiomegaly. He is given cefepime vancomycin for possible hospital-acquired pneumonia. She is an elevated procalcitonin of 1.06, she is a lactate of 1.6 no leukocytosis she is been afebrile here for multiple hours actually did develop fever at 100. No obvious signs of severe sepsis. Although blood pressure is a bit soft lowest being 91/64 but mostly 121/75 does dip to 100/62. She is not given sepsis fluids due to suspected volume overload. Heart rate improved to 117 by treating oxygenation. She was given 20 mg of Lasix she did urinate. Her viral panel is also negative. Electrolytes reviewed she has a sodium of 124 which is slightly lower than normal previously 129. Creatinine is 1.06 previously 0.63 no other significant electrolyte Discussed with patient goals she is amenable to intubation only if needed. However high-flow seems to be working. She was briefly on BiPAP during her last admission read. I do not think she needs just yet. Dr. Ojeda updated on patient's symptoms test results and accepts patient. We agreed due to ICU Critical Care Time Critical Care Time Critical Care Time: Yes Total Critical Care Time: 45 Attestation: The high probability of a clinically significant, sudden or life threatening deterioration of the [cardiovascular] system(s) required my full and direct attention, intervention and personal management. The aggregate critical care time was [45] minutes. This time is in addition to time spent performing reported procedures but includes the following: [x] Data Review and interpretation [x] Patient assessment and monitoring of vital signs [x] Documentation [x] Medication orders and management Discharge Plan Departure Patient Disposition: Admitted As Inpatient Clinical Impression: Pneumonia, CHF (congestive heart failure), Hypoxia, Atrial fibrillation with rapid ventricular response, Acute hyponatremia Admit Date/Time: 06/05/23 21:35 Admit Provider: Elijah De Luna
--- NOTE | 2023-06-05 18:50 | PC.NURSE ---
Rajni care performed, pt tolerated catheter placement well.
[2023-06-05] MEDS: FUROSEMIDE 40 MG/4 ML VIAL 20 MG IV (18:58)
[2023-06-05] MEDS: CEFEPIME 2 GM in SODIUM CHLORIDE 0.9% 100 ML IV (18:58)
[2023-06-05 18:59] LABS: Ethanol (ETOH) < 10 mg/dL
[2023-06-05 19:15] LABS: Thyroid Stimulating Hormone 1.51 uIU/mL (0.47-4.68)
[2023-06-05 19:19] LABS: Appearance Urine UA CLEAR; Color Urine UA YELLOW; Glucose Urine UA NEGATIVE (Negative); Ketones Urine UA TRACE (NEGATIVE); Leukocyte Esterase Urine UA NEGATIVE (NEGATIVE); Nitrite Urine UA NEGATIVE (Negative); Occult Blood Urine UA NEGATIVE (Negative); Protein Urine UA TRACE (Negative); Specific Gravity Urine UA 1.015 (1.000-1.035)
[2023-06-05 19:29] LABS: Hyaline Casts Urine 10-30/LPF
[2023-06-05 19:30] LABS: Bacteria Urine None Seen; RBC Urine None Seen (0-5/HPF); Renal Epithelial Cells Urine 0-1/HPF (0-1/HPF); Squamous Epithelial Cell Urine 0-1 /HPF (0-5/HPF); WBC Urine 0-1/HPF (0-5/HPF)
[2023-06-05 19:31] LABS: Bilirubin Urine UA 1+ (NEGATIVE); Culture Indicated Urine Cult Not Indicated
[2023-06-05 19:48] LABS: Troponin I 0.101 ng/mL (0.01-0.034)
[2023-06-05] MEDS: VANCOMYCIN 1,000 MG/200 ML PIGGYBACK 200 MG IV (19:54)
[2023-06-05 20:31] LABS: HCO3 ABG 25 mmol/L (23-27); Oxygen Saturation ABG 93 % (95-100); PCO2 ABG 45.4 mmHg (35-45); PO2 ABG 70 mmHg (80-100); TCO2 ABG 27 mmol/L (23-27); pH ABG 7.35 (7.35-7.45)
[2023-06-05 20:34] LABS: Allen Test for ABG Passed? Yes, Passed; Blood Gas Collection Site Left Radial; Fractionated Inspired Oxygen 65
[2023-06-05] MEDS: ACETAMINOPHEN 325 MG TABLET 650 MG PO (22:37)
--- NOTE | 2023-06-05 23:08 | PM.HP.1 ---
History of Present Illness History of Present Illness Date Patient Seen: 06/05/23 Time Patient Seen: 23:08 Chief complaint: Wound Narrative: The pt is a 73 yo whose friend called EMS and was found to be significantly hypoxic and brought to the ER. She was just in our facility 2 weeks ago from 05/19-05/23 for Influenza and was supposed to be on 3 lpm of oxygen but paramedics found her in her house with just RA. THe pt stated she washed her NC and couldn't find it again, uncertain how long she has been without oxygen. THe pt believes she is in the hospital because of a bed sore on her sacrum because she has not been getting out of her bed much since discharge. Elisha denies any cough, fevers, pain, chills, n/v/diarrhea but does admit to severe weakness and debility. She states she has not smoked since her last discharge and no beer (was drinking 6-12 beers per day) but only occational shots of vodka mixed with some stuff. [facility] Medical History Alcoholism Continuous tobacco abuse Hypertension Social History household members: none Smoking Status: Former smoker Meds Home Medications and Allergies Home Medications Medication Instructions Recorded Confirmed Type albuterol sulfate 90 mcg/actuation 1 - 2 puff inhalation Q4H PRN 05/19/23 06/05/23 History aerosol inhaler Shortness Of Breath Or Wheezing amlodipine 5 mg tablet 5 mg PO DAILY 05/19/23 06/05/23 History escitalopram oxalate 5 mg tablet 5 mg PO DAILY 05/19/23 06/05/23 History fluticasone furoate 200 1 ea inhalation DAILY 05/19/23 06/05/23 History mcg-vilanterol 25 mcg/dose inhalation powder (Breo Ellipta) furosemide 20 mg tablet 20 mg PO QAM 05/19/23 06/05/23 History gabapentin 300 mg capsule 600 mg PO BID Nerve pain 05/19/23 06/05/23 History lisinopril 40 mg tablet 40 mg PO QPM HTN 05/19/23 06/05/23 History meloxicam 15 mg tablet 15 mg PO DAILY 05/19/23 06/05/23 History metoprolol succinate 100 mg 300 mg PO DAILY 05/19/23 06/05/23 History tablet,extended release 24 hr pantoprazole 40 mg tablet,delayed 40 mg PO DAILY 05/19/23 06/05/23 History release nicotine 21 mg/24 hr daily 21 mg topical DAILY #28 ea 05/23/23 06/05/23 Rx transdermal patch Allergies Allergy/AdvReac Type Severity Reaction Status Date / Time cefazolin Allergy Mild Verified 05/21/23 15:42 Sulfa (Sulfonamide Allergy Unknown Verified 05/20/23 07:07 Antibiotics) tetracycline Allergy Unknown Verified 05/20/23 07:07 zolpidem Allergy Unknown Verified 05/20/23 07:07 Exam Vital Signs (past 8 hours): - 06/05/23 16:40 06/05/23 16:44 06/05/23 17:00 Temperature 99.3 F Pulse Rate 144 H 138 H 135 H Respiratory Rate 32 H 32 H 27 H Blood Pressure 119/75 Pulse Oximetry 90 L 96 90 L Oxygen Delivery Method Nasal Cannula Oxygen Flow Rate Fraction of Inspired Oxygen 06/05/23 17:30 06/05/23 17:30 06/05/23 18:00 Temperature Pulse Rate 134 H Respiratory Rate Blood Pressure 102/59 L 134/72 Pulse Oximetry 93 Oxygen Delivery Method Nasal Cannula Oxygen Flow Rate 4 Fraction of Inspired Oxygen 06/05/23 18:00 06/05/23 18:30 06/05/23 18:30 Temperature 98.9 F Pulse Rate 130 H 139 H Respiratory Rate 30 H 24 Blood Pressure 117/80 Pulse Oximetry 94 92 Oxygen Delivery Method Nasal Cannula Nasal Cannula Oxygen Flow Rate 4 4 Fraction of Inspired Oxygen 06/05/23 19:00 06/05/23 19:00 06/05/23 19:30 Temperature 99.0 F Pulse Rate 136 H Respiratory Rate 59 H Blood Pressure 155/90 H 91/64 Pulse Oximetry 91 Oxygen Delivery Method Nasal Cannula Oxygen Flow Rate 4 Fraction of Inspired Oxygen 06/05/23 19:30 06/05/23 20:00 06/05/23 20:02 Temperature 99.9 F H Pulse Rate 136 H 137 H Respiratory Rate 25 H 34 H Blood Pressure Pulse Oximetry 90 L 82 L 83 L Oxygen Delivery Method Nasal Cannula Nasal Cannula Oxygen Flow Rate 4 6 Fraction of Inspired Oxygen 06/05/23 20:04 06/05/23 20:30 06/05/23 20:37 Temperature 100.0 F H Pulse Rate 136 H 136 H Respiratory Rate 33 H 33 H Blood Pressure Pulse Oximetry 89 L 92 92 Oxygen Delivery Method Oximask Oxygen Flow Rate 8 Fraction of Inspired Oxygen 06/05/23 20:39 06/05/23 20:55 06/05/23 20:55 Temperature 100.0 F H Pulse Rate 118 H Respiratory Rate 30 H Blood Pressure 122/65 Pulse Oximetry 97 Oxygen Delivery Method High Flow Nasal Cannula Oxygen Flow Rate 25 Fraction of Inspired Oxygen 60 06/05/23 21:00 06/05/23 21:00 06/05/23 21:15 Temperature 100.0 F H 100.2 F H Pulse Rate 116 H 116 H Respiratory Rate 29 H 26 H Blood Pressure 121/75 Pulse Oximetry 97 97 Oxygen Delivery Method Oxygen Flow Rate Fraction of Inspired Oxygen 06/05/23 21:15 06/05/23 21:30 06/05/23 21:30 Temperature 100.0 F H Pulse Rate 111 H Respiratory Rate 25 H Blood Pressure 99/57 L 100/62 Pulse Oximetry 97 Oxygen Delivery Method Oxygen Flow Rate Fraction of Inspired Oxygen 06/05/23 21:45 06/05/23 21:45 06/05/23 22:00 Temperature 100.0 F H Pulse Rate 115 H Respiratory Rate 23 Blood Pressure 119/79 131/64 Pulse Oximetry 98 Oxygen Delivery Method Oxygen Flow Rate Fraction of Inspired Oxygen 06/05/23 22:00 06/05/23 22:15 06/05/23 22:22 Temperature 100.0 F H 100 F H Pulse Rate 115 H 125 H Respiratory Rate 23 24 Blood Pressure 136/92 H 136/92 H Pulse Oximetry 98 95 Oxygen Delivery Method Oxygen Flow Rate 20 Fraction of Inspired Oxygen 0.50 06/05/23 22:22 06/05/23 23:00 06/05/23 23:00 Temperature 100.0 F H 100.0 F H Pulse Rate 95 H 130 H Respiratory Rate 28 H Blood Pressure 110/65 Pulse Oximetry 96 91 Oxygen Delivery Method High Flow Nasal Cannula Oxygen Flow Rate Fraction of Inspired Oxygen Fraction of Inspired Oxygen 0.50 Oxygen Delivery Method High Flow Nasal Cannula Oxygen Flow Rate 20 Const General: acute distress, disheveled and frail appearing Resp Effort & Inspection: normal respiratory effort and able to speak in complete sentences Auscultation: crackles and wheezes Cardio Rate: tachycardic Rhythm: regular rhythm Heart Sounds: S1 normal and S2 normal GI Auscultation: normal bowel sounds Skin General: no rashes or lesions noted Extrem General: pedal edema Objective Labs 06/05/23 17:09 06/05/23 17:09 Labs: Laboratory Results - last 24 hr 06/05/23 06/05/23 06/05/23 16:50 17:09 18:55 WBC 11.0 RBC 3.78 L Hgb 11.4 L Hct 33.4 L MCV 88.5 MCH 30.2 MCHC 34.1 RDW 14.9 H Plt Count 266 Neut % (Auto) 84.4 H Lymph % (Auto) 5.3 L [place] % (Auto) 9.8 Eos % (Auto) 0.1 L Baso % (Auto) 0.4 Neut # (Auto) 9300 H Lymph # (Auto) 600 L [place] # (Auto) 1100 H Eos # (Auto) 0 Baso # (Auto) 0 ABG Sample Site ABG pH ABG pCO2 ABG pO2 ABG HCO3 ABG Total CO2 ABG O2 Saturation ABG Base Excess FiO2 Sodium 124 L Potassium 4.0 Chloride 90 L Carbon Dioxide 25 BUN 25 H Creatinine 1.06 H Estimated GFR 56 L BUN/Creatinine Ratio 23.6 H Glucose 113 H Lactate 1.6 Calcium 9.4 Total Bilirubin 1.9 H AST 21 ALT 15 Alkaline Phosphatase 74 Total Creatine Kinase < 20 L Troponin I 0.068 H NT-Pro-B Natriuret Pep 3260 H Total Protein 7.3 Albumin 3.4 L Globulin 3.9 Albumin/Globulin Ratio 0.9 L Lipase 100 Procalcitonin 1.06 H TSH 1.51 Urine Color Yellow Urine Appearance Clear Urine pH 6.0 Ur Specific [place] 1.015 Urine Protein Trace H Urine Glucose (UA) Negative Urine Ketones Trace H Urine Occult Blood Negative Urine Nitrate Negative Urine Bilirubin 1+ H Ur Bilirubin Confirm Cancelled Urine Urobilinogen 1.0 Ur Leukocyte Esterase Negative Urine RBC None seen Urine WBC 0-1/hpf Ur Squamous Epith Cells 0-1 /hpf Ur Renal Epithelial Cell 0-1/hpf Urine Bacteria None seen Hyaline Casts 10-30/lpf Ur Culture Indicated? Cult not indicated Ethyl Alcohol < 10 Chlamy pneumoniae PCR Not detected Adenovirus (PCR) Not detected B.parapertussis DNA PCR Not detected Coronavirus OC43 (PCR) Not detected Coronavirus HKU1 (PCR) Not detected Coronavirus 229E (PCR) Not detected SARS-CoV-2 (PCR) Not detected Coronavirus NL63 (PCR) Not detected Human Metapneumovir PCR Not detected Influenza Type A (PCR) Not detected Influenza Type B (PCR) Not detected M. pneumoniae (PCR) Not detected Parainfluenza 1 (PCR) Not detected Parainfluenza 2 (PCR) Not detected Parainfluenza 3 (PCR) Not detected Parainfluenza 4 (PCR) Not detected RSV (PCR) Not detected Entero/Rhino (PCR) Not detected 06/05/23 06/05/23 19:20 20:24 WBC RBC Hgb Hct MCV MCH MCHC RDW Plt Count Neut % (Auto) Lymph % (Auto) [place] % (Auto) Eos % (Auto) Baso % (Auto) Neut # (Auto) Lymph # (Auto) [place] # (Auto) Eos # (Auto) Baso # (Auto) ABG Sample Site Left radial ABG pH 7.35 ABG pCO2 45.4 H ABG pO2 70 L ABG HCO3 25 ABG Total CO2 27 ABG O2 Saturation 93 L ABG Base Excess 0.0 FiO2 65 Sodium Potassium Chloride Carbon Dioxide BUN Creatinine Estimated GFR BUN/Creatinine Ratio Glucose Lactate Calcium Total Bilirubin AST ALT Alkaline Phosphatase Total Creatine Kinase Troponin I 0.101 H NT-Pro-B Natriuret Pep Total Protein Albumin Globulin Albumin/Globulin Ratio Lipase Procalcitonin TSH Urine Color Urine Appearance Urine pH Ur Specific [place] Urine Protein Urine Glucose (UA) Urine Ketones Urine Occult Blood Urine Nitrate Urine Bilirubin Ur Bilirubin Confirm Urine Urobilinogen Ur Leukocyte Esterase Urine RBC Urine WBC Ur Squamous Epith Cells Ur Renal Epithelial Cell Urine Bacteria Hyaline Casts Ur Culture Indicated? Ethyl Alcohol Chlamy pneumoniae PCR Adenovirus (PCR) B.parapertussis DNA PCR Coronavirus OC43 (PCR) Coronavirus HKU1 (PCR) Coronavirus 229E (PCR) SARS-CoV-2 (PCR) Coronavirus NL63 (PCR) Human Metapneumovir PCR Influenza Type A (PCR) Influenza Type B (PCR) M. pneumoniae (PCR) Parainfluenza 1 (PCR) Parainfluenza 2 (PCR) Parainfluenza 3 (PCR) Parainfluenza 4 (PCR) RSV (PCR) Entero/Rhino (PCR) Assessment & Plan Assessment and plan (1) Acute hyponatremia: Status: Acute (2) Atrial fibrillation with rapid ventricular response: Status: Acute (3) CHF (congestive heart failure): Status: Acute (4) Pneumonia: Status: Acute (5) Acute hypoxemic respiratory failure: Status: Acute (6) Hypertension: Status: Acute Plan CTA of the chest reviewed showing signs consistent with a pneumonia despite the normal WBC today. Will place empirically on Cefepime, given vanco in the ER. She was on Prednisone on discharge 2 weeks ago but she was not taking it at home she says, will start the pt on Solumedrol, breathing tx, RT consult. I spoke with the ER provider and discussed the pt case and treatment plan, Her HR is 110-120, uncertain if a-fib is present, EKG ordered, she is on 300 mg of Metropolol at home which is a high dose given her wheezing on presentation. Uncertain if the a-fib is new vs acute, IV prn metoprolol odered, and on telemetry for monitoring. Labs reviewed and Na is 124 which is what it was upon admit last month. will need to monitor closely, BNP elevated, and edematous in legs, started on lasix 40 mg BID. repeat labs in am.
[2023-06-05] MEDS: methylPREDNISolone 125 MG/2 ML VIAL 60 MG IV (23:35)
[2023-06-05] MEDS: FUROSEMIDE 40 MG/4 ML VIAL IV (23:36)
[2023-06-05] MEDS: METOPROLOL TARTRATE 5 MG/5 ML INJ IV (23:36)
[2023-06-05] MEDS: guaiFENesin Solution 100 MG/5 ML UDC PO (23:43)
[2023-06-06] VITALS (56 sets, daily range): BP systolic 88–141; BP diastolic 54–93; PULSE 88–143; RESP 18–50; TEMP 36.4–37.7; O2SAT 83–97
[2023-06-06] LABS: MRSA (Nasal) PCR Not Detected (Not Detect)
[2023-06-06 05:31] LABS: Add Manual Diff / Slide Review NO; Basophils Absolute Auto 0 /uL (0-100); Basophils Percent Auto 0.3 % (0-2); Eosinophils Absolute Auto 0 /uL (0-450); Hematocrit 33.7 % (36-46); Hemoglobin 11.5 g/dL (12.0-16.0); Lymphocytes Absolute Auto 500 /uL (1100-4500); Lymphocytes Percent Auto 6.4 % (25-40); Mean Corpuscular Hemoglobin 30.2 PG (26-34); Mean Corpuscular Volume 88.8 fL (80-100); Monocytes Absolute Auto 200 /uL (0-900); Monocytes Percent Auto 2.3 % (3-14); Neutrophils Absolute Auto 7800 /uL (1500-7000); Platelet Count 259 X10^3/uL (150-400); Red Cell Distribution Width 14.7 % (11.6-14.8); White Blood Cell Count 8.5 X10^3/uL (4.5-11.0)
[2023-06-06 05:42] LABS: BUN Creatinine Ratio 27.2 (6-22); Blood Urea Nitrogen 25 mg/dL (7-17); Calcium 9.3 mg/dL (8.4-10.2); Carbon Dioxide 26 mmol/L (22-32); Chloride 93 mmol/L (98-107); Estimated Glomerular Filt Rate > 60 mL/min (>60); Glucose 104 mg/dL (80-110); HEMOLYSIS < 15 (0-50); Potassium 3.8 mmol/L (3.4-5.1); Sodium 129 mmol/L (137-145)
[2023-06-06 05:51] LABS: NT-proBNP (BNP-Adult 18+) 6070 pg/mL (<125); Troponin I 0.068 ng/mL (0.01-0.034)
--- NOTE | 2023-06-06 06:21 | PC.NURSE ---
mini shifter RN note Pt arrived from ER via stretcher, A&Ox4, forgetful at times regarding events leading up to admission, SHOEMAKER with weakness, VSS, Tmax 100 degrees, 2+ gen edema, afib 110-130s, prn metoprolol with effect, lungs decreased on R side and crackles to LL lobe, moist productive cough for brown/yellow secretions, O2 sats >88% on high flow 25L/50% FIO2, SOBOE, abd soft with BS, r/c draining clear yellow urine, lasix IV given as ordered, skin warm, fragile, joselo area excoriated and blanchable, cream applied, c/o pain to periarea, tylenol given with effect, SCDs on, x2 periph IV sites patent, meds and labs as ordered, notifed in am of abnormal lab values, no new orders at this time, continue to monitor
[2023-06-06] MEDS: PANTOPRAZOLE DR 40 MG TABLET PO (07:41)
[2023-06-06] MEDS: CEFEPIME 1 GM in SODIUM CHLORIDE 0.9% 100 ML IV ×2 (07:43→20:30)
[2023-06-06] MEDS: BUDESONIDE 0.5 MG/2 ML NEB INH ×2 (08:21→18:55)
[2023-06-06] MEDS: ALBUTEROL/IPRATROPIUM 3 ML AMPUL INH ×2 (08:21→18:55)
[2023-06-06] MEDS: NICOTINE 14 PATCH 14 MG TOP (09:14)
[2023-06-06] MEDS: NYSTATIN POWDER 15GM 1 APPLIC TOP ×2 (09:14→20:31)
[2023-06-06] MEDS: GABAPENTIN 300 MG CAPSULE 600 MG PO ×2 (09:15→20:30)
[2023-06-06] MEDS: ESCITALOPRAM 10 MG TABLET 5 MG PO (09:15)
[2023-06-06] MEDS: AMLODIPINE 5 MG TABLET PO (09:16)
[2023-06-06] MEDS: METOPROLOL IR 50 MG TABLET 150 MG PO ×2 (09:16→20:30)
[2023-06-06] MEDS: MELOXICAM 7.5 MG TABLET 15 MG PO (09:16)
--- NOTE | 2023-06-06 11:11 | PT.IIE ---
Current Diagnoses Hypo-osmolality and hyponatremia (06/05/23) Essential (primary) hypertension (06/05/23) Unspecified atrial fibrillation (06/05/23) Heart failure, unspecified (06/05/23) Pneumonia, unspecified organism (06/05/23) Acute respiratory failure with hypoxia (06/05/23) Medical History (Last Reviewed 05/19/23 @ 00:15 by Saroj Yu MD) Alcoholism Continuous tobacco abuse Hypertension Physical Therapy Inpatient Evaluation/Re-Eval M1 PT/OT-IP Prior Functional Status Start: 06/06/23 08:21 Freq: NEEDED Status: Active Protocol: Document 06/06/23 11:11 AW (Rec: 06/06/23 11:53 AW [id number]) Medical Review Prior Functional Status Medical History Reviewed Yes Communication Pt is able to make her needs known. Mobility and Gait Pt uses a 4-wheeled cart to get around her house. Activities of Daily Living and IADL's Independent with basic ADL's. Pt relies on [employer] for transportation. Her friend, Odin, assists with housekeeping and shopping. Prior Functional Level (Other details) Pt was hospitalized 05/19- with acute hypoxic respiratory failure. She discharged with home O2 but apparently misplaced her nasal cannula and has not been using O2. Social History Household Members none Living Arrangements House Number of Floors (Floors) One Floor Number of Stairs To Enter/Railing? 3 HUMBERTO with R rail ascending Home Environment Standard Height Toilet,Walk in Shower Home Equipment Grab Bars Near Toilet Additional Social History Comment Pt's friend, Odin, checks in frequently. Pt states her son lives across [facility]. M2 PT-IP Current Condition Start: 06/06/23 08:21 Freq: NEEDED Status: Active Protocol: Document 06/06/23 11:11 AW (Rec: 06/06/23 11:53 AW [id number]) Physical Therapy Current Condition Current Condition Evaluation Date 06/06/23 Treatment Diagnosis hypoxic respiratory failure; sacral pressure injuries; impaired mobility Onset Date 06/05/23 M3 PT-IP Subjective Start: 06/06/23 08:21 Freq: NEEDED Status: Active Protocol: Document 06/06/23 11:11 AW (Rec: 12/04/23 11:53 AW [id number]) Subjective Physical Therapy Visit Type Type Initial Evaluation Visit Start Time 10:45 Visit Stop Time 11:11 Total Visit Minutes 26 Notes Co-assessment with OT secondary to pt's poor activity tolerance. Physical Therapy Visit Comments Patient Comments Pt is willing to participate with therapies, needs to use the commode. M4 PT-IP Mobility and Gait Start: 06/06/23 08:21 Freq: NEEDED Status: Active Protocol: Document 06/06/23 11:11 AW (Rec: 06/06/23 11:53 AW [id number]) PT-Bed Mobility Assessment Supine to Sit Supine to Sit Standby Assistance,Bedrails Sit to Supine Sit to Supine Contact Guard Assistance, Bedrails Scooting Scooting to Edge of Bed Independent Scooting Up and Down in Bed Independent PT-Transfer Assessment Sit to and From Stand Sit to and from Stand Contact Guard Assistance,1 Person Assistance,Use of Upper Extremities Equipment Transfer Assistive Device Gait Belt,Front Wheeled Walker Orthotic/Prosthetic Devices or Brace: No Transfers Transfer Destination Bedside Commode Transfer Technique Stand Step Pivot Transfer Ability Level of Assist Contact Guard Assistance,Use of Upper Extremities Comments Mobility Comments Pt was found lying in bed, willing to participate with therapies. BP 103/57 HR 99 SpO2 95% on 25 L/min HHFNC. Pt was able to transition to sitting EOB without physical assist. SpO2 dropped to 85% with exertion. Pt sat several minutes as PT instructed in PLB. SpO2 91% Pt stood and transferred to [facility] using FWW with CGA and assist for multiple lines. She sat ~10 minutes but with some discomfort due to her pressure injuries. She stood and needed assist for pericare ( special attention to completeness out of concern for skin integrity). Standing tolerance was limited to one minute and SpO2 began to drop again to mid-80's. Pt completed transfer and returned to supine with SpO2 recovering to 93% within two minutes. Gait Assessment Gait Gait Assistance Required: Contact Guard Assist Distance (Feet) 2 Assistive Devices Assistive Device Gait Belt,Front Wheeled Walker Comments Gait Comments Steps taken during transfers only. PT-Balance Assessment Sitting Balance and Reactions Static Sitting Balance Ability Good Dynamic Sitting Balance Ability Good Standing Balance and Reactions Static Standing Balance Ability Fair Dynamic Standing Balance Ability Fair Device Used FWW M5 PT-IP Objective Assessments Start: 06/06/23 08:21 Freq: NEEDED Status: Active Protocol: Document 06/06/23 11:11 AW (Rec: 06/06/23 11:53 AW [id number]) Orientation Orientation/Cognition Level of Alertness Confusional State Orientation Name,Date,Place,Situation Comments Pt endorses some confusion. She scored 19/30 on SLUMS conducted by OT on 05/19/23. Gross Range of Motion Lower Extremity ROM Assessment Within Functional Limits Strength Lower Extremity Strength Assessment Within Functional Limits Comments Strength Comments Grossly 4+/5 BLE except hips 4 /5. Sensation Assessment Sensation Gross Sensation WNL M6 PT-IP Treatment Start: 06/06/23 08:21 Freq: NEEDED Status: Active Protocol: Document 06/06/23 11:11 AW (Rec: 06/06/23 11:53 AW [id number]) Physical Therapy Treatment Other Treatments Other Treatment Performed Transfer training and education on PLB during mobility. M7 PT-IP Assessment and Plan Start: 06/06/23 08:21 Freq: NEEDED Status: Active Protocol: Document 06/06/23 11:11 AW (Rec: 06/06/23 11:53 AW [id number]) PT Summary Assessment and Plan Potential Rehabilitation Potential Good Status of Condition at Evaluation Evolving Summary Impairments Strength,Bed Mobility, Transfers,Gait Assessment Summary Arlene Tello is a 73 yo woman seen for PT evaluation while admitted with new onset atrial fibrillation with RVR, acute hypoxic respiratory failure, hyponatremia, and sacral pressure injuries. PMH includes CHF, alcohol dependence, and recent influenza A. Pt was evaluated for home O2 during her recent admission but apparently lost her nasal cannula and was not using O2. PLOF: Pt lives alone in a single level home. On last admit, she had not had propane for several months. Pt states she has since received at least a partial propane fill. Pt ambulates with a 4- wheeled cart, uses [employer]rans[employer] , and has assist from a friend with some housekeeping. SLUMS score on last admit was 19/30 . CLOF: Pt presents with generalized weakness as noted in objective findings. She is requiring CGA for very limited mobility secondary to low activity tolerance on 25 L/min HHFNC. Pt desats to mid-80's during bed mobility and transfers. Given pt's PLOF, it is conceivable that she could progress to safe discharge home with increased assist and home health services, but at this time PT recommends SNF rehab for daily rehab activities to progress pt back toward PLOF. Will continue to assess and refine discharge recommendation based on pt's progress. Goals Bed Mobility Goal Independent Transfer Goal Independent,Four Wheeled Walker Gait Goal Independent,Four Wheel Walker Gait Distance 200 Other Goals - Pt climbs 3 steps with R hand rail mod I for safe home entry Days to Meet Goals 10 Frequency of Treatment Frequency Of Treatment Once a Day Treatment Plan Physical Therapy Treatment Plan Bed Mobility Training,Transfer Training,Gait Training, Therapeutic Exercise,Balance Retraining,Discharge Planning, Hot or Cold Pack,Neuromuscular Re-ed Precautions Other Precautions respiratory status Recommendations To Nursing Amount of Assist Needed 1 Person Assist Discharge Recommendations PT Discharge Recommendations SNF Rehab Transportation Needs at Discharge Wheelchair/Cabulance
[2023-06-06] MEDS: FUROSEMIDE 40 MG/4 ML VIAL IV ×2 (11:36→23:22)
[2023-06-06] MEDS: methylPREDNISolone 125 MG/2 ML VIAL 60 MG IV (11:41)
--- NOTE | 2023-06-06 13:26 | CM.DANOTE ---
Patient is a 73 yo female, admitted for management of resp failure in the setting of FLU A+ a couple weeks ago and now with Pneumonia/CHF/AFIB. PCP: Carmelina Camargo Payer: [facility] Met w/patient bedside and explained role and pt confirms she has been living in a [place] cabin for 25 years in [place] on [address]. She has been able to manage mostly on her own. [place] [facility] housing subsidizes cost of rent. In addition, patient has recently been sent approx $115 mo from the count includes the [facility] to assist with utilities. Patient has been living without propane for 6 months, no heat or hot water. Patient uses space heaters throughout her one bedroom home. Patient says she has approx $290 from monthly. Patient uses a cart to get around her home, uses para transit when she needs to leave her home for appointments, grocery shopping and errands. Patient has a son, Martin P [phone] that lives in [place] and a son Fabian P [phone] that lives in [place]. Patient's brother and sister live in [place] and helped to provide assist home after last admission and helped with getting Propane delivery set up. Patient admits to drinking 3-4 beers daily which she purchases herself when grocery shopping. Patient says she is trying to get down to 1-2 beers daily. Denies any ETOH withdrawals and no withdrawals during last admission in May 2023. Pt states since her discharge at the end of May 2023 she went home via brother [facility] and discovered she actually had some propane left in her large tank and has had heat and warm water since she discharged. [facility] referral had been made and pt states that she did not like the HH RN who sent her to [facility] and she since has declined HH services but wants [facility] set up. Pt had completed the [facility] LTC application and was faxed in last month while admitted and Care Management received a call that they could not reach pt by phone after discharge from the hospital and were going to mail her a letter with the information to complete the process to determine if she meets criteria again for [facility]. Pt states she has not received anything via mail from [facility]. SW called [facility] and confirmed her assigned CM is Amy for LTC application process [phone] and needs to speak to pt prior to 06/13/23 to move forward with approving her [facility] application. SW provided this contact and number to the pt and urgently requested she call Amy by tomorrow. Pt just getting over a coughing fit and thinks she likely will wait to call until tomorrow 06/07/23. Plan: SW to follow closely to confirm pt has called assigned HCS CM Amy to complete the [facility] application and also to discuss further DPOA and providing the pwk if needed for future needs. Pt currently declines SNF or HH but wants to move forward with [facility]. SENTHIL Spangler Discharge Planning/Care Management CM Discharge Assessment Start: 06/06/23 13:08 Freq: Status: Active Protocol: Document 06/06/23 13:08 BF (Rec: 06/06/23 13:26 BF [id number]) Discharge Planning Assessment Assigned Career Development Director ESNTHIL Berrios DPOA/Assigned Designee Name none Advance Directives? No Advance Directives on File No History Provided By Patient,Medical Record Has Patient been admitted in last 30 Yes days? Comment last here end of Nov and discharged home with new home O2 and [facility] HH Prior Living Arrangements Apartment/Condo Comment lives in a fishing cabin in [place] Household Members none Type of transporation used prior to Relies on Others admit Comment [employer]rans[employer] Independent with ADL's Yes: somewhat Is patient alert and oriented? Yes Needs Assistance With Managing Medications,Home Chores / Shopping Caregiver for Another No Comment [facility] was set up but pt did not like the RN that came and declined HH services, wants [facility] Already Rented / Owned FWW / Walker,Oxygen Barriers to Discharge No Discharge Plan Home Transportation Arrangement Likely family or friend or maybe transport through her [facility] Referrals Initiated Medicaid Application Whiteboard Updated in Patient Room with Yes name and ext. # of Career Development Director Review Status In Process Please Provide Date Initial DC 06/06/23 Assessment Was Performed Next Review Type Continued Stay Review
[2023-06-06 13:36] LABS: Magnesium 1.5 mg/dL (1.6-2.3)
[2023-06-06] MEDS: BENZOCAINE/MENTHOL 1 LOZ PKT 1 EACH PO (14:27)
[2023-06-06] MEDS: BENZONATATE 100 MG CAPSULE PO (14:27)
[2023-06-06] MEDS: MAGNESIUM SULFATE 2 GM/50 ML PIGGYBACK IV (14:27)
--- NOTE | 2023-06-06 17:00 | P.PN_ITS ---
Subjective Subjective Interval history: 73 F admitted with acute respiratory failure secondary to presumed CHF exacerbation with or without possible bacterial PNA, possible COPD exacerbation. She feels a bit better today, but still short of breath and persistent cough. Exam Vital Signs (past 8 hours): - 06/06/23 09:30 06/06/23 10:00 06/06/23 10:00 Temperature 98.8 F 99.0 F Pulse Rate 139 H 135 H Respiratory Rate 22 24 Blood Pressure 103/57 L Pulse Oximetry 93 94 06/06/23 10:30 06/06/23 11:00 06/06/23 11:05 Temperature 99.1 F 99.3 F Pulse Rate 126 H 115 H Respiratory Rate 22 27 H Blood Pressure 128/60 Pulse Oximetry 93 92 06/06/23 11:05 06/06/23 11:56 06/06/23 12:00 Temperature 99.5 F 99.3 F Pulse Rate 123 H 102 H 98 H Respiratory Rate 30 H 24 22 Blood Pressure 128/60 Pulse Oximetry 92 94 93 06/06/23 12:00 06/06/23 12:05 06/06/23 12:05 Temperature 99.3 F Pulse Rate 97 H Respiratory Rate 26 H Blood Pressure 88/57 L 97/62 Pulse Oximetry 92 06/06/23 12:30 06/06/23 13:00 06/06/23 13:24 Temperature 99.1 F Pulse Rate 101 H 111 H Respiratory Rate 23 27 H Blood Pressure 141/93 H Pulse Oximetry 92 06/06/23 13:24 06/06/23 13:30 06/06/23 14:00 Temperature 99.3 F 99.3 F Pulse Rate 123 H 119 H Respiratory Rate 30 H 50 H Blood Pressure 105/70 Pulse Oximetry 84 L 94 06/06/23 14:00 06/06/23 14:30 06/06/23 15:00 Temperature 99.1 F 99.0 F Pulse Rate 107 H 110 H Respiratory Rate 21 29 H Blood Pressure 126/74 Pulse Oximetry 93 93 06/06/23 15:00 06/06/23 16:00 06/06/23 16:00 Temperature 98.8 F 98.6 F Pulse Rate 109 H 105 H Respiratory Rate 23 20 Blood Pressure 133/81 Pulse Oximetry 94 93 06/06/23 16:30 Temperature 98.4 F Pulse Rate 97 H Respiratory Rate 27 H Blood Pressure Pulse Oximetry 93 Fraction of Inspired Oxygen 50 SaO2/FiO2 Ratio 186 Oxygen Delivery Method Heated High Flow Oxygen Flow Rate 25 Narrative Exam Narrative: Gen: no acute distress but on 25 L O2 CV: tachycardic rate with irregularly irregular rhythm, no murmur Pulm: Bibasilar rhonchi, no wheezing Abd: S NT ND Ext: trace b/l LE edema Objective Labs 06/06/23 04:18 06/06/23 04:18 Labs: Laboratory Results - last 24 hr 06/05/23 06/05/23 06/05/23 16:50 17:09 18:55 WBC 11.0 RBC 3.78 L Hgb 11.4 L Hct 33.4 L MCV 88.5 MCH 30.2 MCHC 34.1 RDW 14.9 H Plt Count 266 Neut % (Auto) 84.4 H Lymph % (Auto) 5.3 L [place] % (Auto) 9.8 Eos % (Auto) 0.1 L Baso % (Auto) 0.4 Neut # (Auto) 9300 H Lymph # (Auto) 600 L [place] # (Auto) 1100 H Eos # (Auto) 0 Baso # (Auto) 0 ABG Sample Site ABG pH ABG pCO2 ABG pO2 ABG HCO3 ABG Total CO2 ABG O2 Saturation ABG Base Excess FiO2 Sodium 124 L Potassium 4.0 Chloride 90 L Carbon Dioxide 25 BUN 25 H Creatinine 1.06 H Estimated GFR 56 L BUN/Creatinine Ratio 23.6 H Glucose 113 H Lactate 1.6 Calcium 9.4 Magnesium Total Bilirubin 1.9 H AST 21 ALT 15 Alkaline Phosphatase 74 Total Creatine Kinase < 20 L Troponin I 0.068 H NT-Pro-B Natriuret Pep 3260 H Total Protein 7.3 Albumin 3.4 L Globulin 3.9 Albumin/Globulin Ratio 0.9 L Lipase 100 Procalcitonin 1.06 H TSH 1.51 Urine Color Yellow Urine Appearance Clear Urine pH 6.0 Ur Specific [place] 1.015 Urine Protein Trace H Urine Glucose (UA) Negative Urine Ketones Trace H Urine Occult Blood Negative Urine Nitrate Negative Urine Bilirubin 1+ H Ur Bilirubin Confirm Cancelled Urine Urobilinogen 1.0 Ur Leukocyte Esterase Negative Urine RBC None seen Urine WBC 0-1/hpf Ur Squamous Epith Cells 0-1 /hpf Ur Renal Epithelial Cell 0-1/hpf Urine Bacteria None seen Hyaline Casts 10-30/lpf Ur Culture Indicated? Cult not indicated Nasal Screen MRSA (PCR) Ethyl Alcohol < 10 Chlamy pneumoniae PCR Not detected Adenovirus (PCR) Not detected B.parapertussis DNA PCR Not detected Coronavirus OC43 (PCR) Not detected Coronavirus HKU1 (PCR) Not detected Coronavirus 229E (PCR) Not detected SARS-CoV-2 (PCR) Not detected Coronavirus NL63 (PCR) Not detected Human Metapneumovir PCR Not detected Influenza Type A (PCR) Not detected Influenza Type B (PCR) Not detected M. pneumoniae (PCR) Not detected Parainfluenza 1 (PCR) Not detected Parainfluenza 2 (PCR) Not detected Parainfluenza 3 (PCR) Not detected Parainfluenza 4 (PCR) Not detected RSV (PCR) Not detected Entero/Rhino (PCR) Not detected 06/05/23 06/05/23 06/05/23 19:20 20:24 22:45 WBC RBC Hgb Hct MCV MCH MCHC RDW Plt Count Neut % (Auto) Lymph % (Auto) [place] % (Auto) Eos % (Auto) Baso % (Auto) Neut # (Auto) Lymph # (Auto) [place] # (Auto) Eos # (Auto) Baso # (Auto) ABG Sample Site Left radial ABG pH 7.35 ABG pCO2 45.4 H ABG pO2 70 L ABG HCO3 25 ABG Total CO2 27 ABG O2 Saturation 93 L ABG Base Excess 0.0 FiO2 65 Sodium Potassium Chloride Carbon Dioxide BUN Creatinine Estimated GFR BUN/Creatinine Ratio Glucose Lactate Calcium Magnesium Total Bilirubin AST ALT Alkaline Phosphatase Total Creatine Kinase Troponin I 0.101 H NT-Pro-B Natriuret Pep Total Protein Albumin Globulin Albumin/Globulin Ratio Lipase Procalcitonin TSH Urine Color Urine Appearance Urine pH Ur Specific [place] Urine Protein Urine Glucose (UA) Urine Ketones Urine Occult Blood Urine Nitrate Urine Bilirubin Ur Bilirubin Confirm Urine Urobilinogen Ur Leukocyte Esterase Urine RBC Urine WBC Ur Squamous Epith Cells Ur Renal Epithelial Cell Urine Bacteria Hyaline Casts Ur Culture Indicated? Nasal Screen MRSA (PCR) Not detected Ethyl Alcohol Chlamy pneumoniae PCR Adenovirus (PCR) B.parapertussis DNA PCR Coronavirus OC43 (PCR) Coronavirus HKU1 (PCR) Coronavirus 229E (PCR) SARS-CoV-2 (PCR) Coronavirus NL63 (PCR) Human Metapneumovir PCR Influenza Type A (PCR) Influenza Type B (PCR) M. pneumoniae (PCR) Parainfluenza 1 (PCR) Parainfluenza 2 (PCR) Parainfluenza 3 (PCR) Parainfluenza 4 (PCR) RSV (PCR) Entero/Rhino (PCR) 06/06/23 04:18 WBC 8.5 RBC 3.80 L Hgb 11.5 L Hct 33.7 L MCV 88.8 MCH 30.2 MCHC 34.0 RDW 14.7 Plt Count 259 Neut % (Auto) 91.0 H Lymph % (Auto) 6.4 L [place] % (Auto) 2.3 L Eos % (Auto) 0.0 L Baso % (Auto) 0.3 Neut # (Auto) 7800 H Lymph # (Auto) 500 L [place] # (Auto) 200 Eos # (Auto) 0 Baso # (Auto) 0 ABG Sample Site ABG pH ABG pCO2 ABG pO2 ABG HCO3 ABG Total CO2 ABG O2 Saturation ABG Base Excess FiO2 Sodium 129 L Potassium 3.8 Chloride 93 L Carbon Dioxide 26 BUN 25 H Creatinine 0.92 Estimated GFR > 60 BUN/Creatinine Ratio 27.2 H Glucose 104 Lactate Calcium 9.3 Magnesium 1.5 L Total Bilirubin AST ALT Alkaline Phosphatase Total Creatine Kinase Troponin I 0.068 H NT-Pro-B Natriuret Pep 6070 H Total Protein Albumin Globulin Albumin/Globulin Ratio Lipase Procalcitonin TSH Urine Color Urine Appearance Urine pH Ur Specific [place] Urine Protein Urine Glucose (UA) Urine Ketones Urine Occult Blood Urine Nitrate Urine Bilirubin Ur Bilirubin Confirm Urine Urobilinogen Ur Leukocyte Esterase Urine RBC Urine WBC Ur Squamous Epith Cells Ur Renal Epithelial Cell Urine Bacteria Hyaline Casts Ur Culture Indicated? Nasal Screen MRSA (PCR) Ethyl Alcohol Chlamy pneumoniae PCR Adenovirus (PCR) B.parapertussis DNA PCR Coronavirus OC43 (PCR) Coronavirus HKU1 (PCR) Coronavirus 229E (PCR) SARS-CoV-2 (PCR) Coronavirus NL63 (PCR) Human Metapneumovir PCR Influenza Type A (PCR) Influenza Type B (PCR) M. pneumoniae (PCR) Parainfluenza 1 (PCR) Parainfluenza 2 (PCR) Parainfluenza 3 (PCR) Parainfluenza 4 (PCR) RSV (PCR) Entero/Rhino (PCR) PFSH Medical History Alcoholism Continuous tobacco abuse Hypertension Social History household members: none Smoking Status: Former smoker Assessment & Plan Assessment & Plan narrative: #Atrial fibrillation with rapid ventricular response: - continue metoprolol but increase to 150 mg BID, has improved rate control this afternoon. - will need to discuss skilled nursing anticoagulation with patient once respiratory status improved. #acute respiratory failure with hypoxia, COPD with exacerbation - continue supportive therapies, diuresis, antibiotics, and steroids. Etiology likely multifactorial due to PNA after recent influenza infection, CHF, and COPD with exacerbation. - wean from oxygen as able, goal O2 88-96% while on supplemental therapies. #CHF (congestive heart failure): - continue diuresis with furosemide 40 mg IV BID -TTE with Normal EF at 50-55%, normal R ventricular function. RVSP of 46 on that study last month. 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 # Bacterial Pneumonia: - continue ceftriaxone and azithromycin for presumed bacterial pneumonia. # Hypertension: - okay to continue Chronic hyponatremia - continue to follow, no current symptoms. #myocardial injury - downtrended, likely demand due to above respiratory failure. Code: Full, surrogate is patient's son Dispo: Consider SNF depending on PT/OT evaluations. DVT: Lovenox daily, consider AC for afib as noted above. Quality MIPS - Admit I confirm the patient?s Advance Care Plan is present, Code status is documented, Surrogate decision maker is in patient?s record [If Yes, STOP here]: Yes
[2023-06-06] MEDS: HYDROCODONE/ACET 5/325 TABLET 1 TAB PO (20:37)
[2023-06-07] VITALS (58 sets, daily range): BP systolic 88–129; BP diastolic 50–95; PULSE 77–111; RESP 14–44; TEMP 36.1–37; O2SAT 85–97
[2023-06-07 05:15] LABS: Add Manual Diff / Slide Review NO; Basophils Absolute Auto 0 /uL (0-100); Basophils Percent Auto 0.2 % (0-2); Eosinophils Absolute Auto 0 /uL (0-450); Hematocrit 32.5 % (36-46); Hemoglobin 11.4 g/dL (12.0-16.0); Lymphocytes Absolute Auto 500 /uL (1100-4500); Lymphocytes Percent Auto 6.2 % (25-40); Mean Corpuscular HGB Conc 35.1 % (30-36); Mean Corpuscular Hemoglobin 30.8 PG (26-34); Mean Corpuscular Volume 87.7 fL (80-100); Monocytes Absolute Auto 400 /uL (0-900); Neutrophils Absolute Auto 6600 /uL (1500-7000); Neutrophils Percent Auto 87.6 % (50-75); Platelet Count 274 X10^3/uL (150-400); Red Cell Distribution Width 14.7 % (11.6-14.8); White Blood Cell Count 7.5 X10^3/uL (4.5-11.0)
[2023-06-07 05:26] LABS: BUN Creatinine Ratio 34.7 (6-22); Blood Urea Nitrogen 34 mg/dL (7-17); Calcium 9.1 mg/dL (8.4-10.2); Carbon Dioxide 30 mmol/L (22-32); Chloride 90 mmol/L (98-107); Estimated Glomerular Filt Rate > 60 mL/min (>60); Glucose 192 mg/dL (80-110); HEMOLYSIS < 15 (0-50); Magnesium 2.1 mg/dL (1.6-2.3); Potassium 3.8 mmol/L (3.4-5.1); Sodium 126 mmol/L (137-145)
[2023-06-07] MEDS: guaiFENesin Solution 100 MG/5 ML UDC PO ×2 (06:04→12:36)
[2023-06-07] MEDS: PANTOPRAZOLE DR 40 MG TABLET PO (06:07)
[2023-06-07] MEDS: BENZOCAINE/MENTHOL 1 LOZ PKT 1 EACH PO ×2 (07:05→12:36)
[2023-06-07] MEDS: BENZONATATE 100 MG CAPSULE PO ×2 (07:05→12:36)
[2023-06-07] MEDS: ALBUTEROL/IPRATROPIUM 3 ML AMPUL INH ×2 (07:29→18:33)
[2023-06-07] MEDS: BUDESONIDE 0.5 MG/2 ML NEB INH ×2 (07:29→18:34)
[2023-06-07] MEDS: CEFEPIME 1 GM in SODIUM CHLORIDE 0.9% 100 ML IV ×2 (08:27→20:28)
[2023-06-07] MEDS: NICOTINE 14 PATCH 14 MG TOP (08:27)
[2023-06-07] MEDS: MELOXICAM 7.5 MG TABLET 15 MG PO (08:28)
[2023-06-07] MEDS: AMLODIPINE 5 MG TABLET PO (08:29)
[2023-06-07] MEDS: ESCITALOPRAM 10 MG TABLET 5 MG PO (08:29)
[2023-06-07] MEDS: GABAPENTIN 300 MG CAPSULE 600 MG PO ×2 (08:29→20:28)
[2023-06-07] MEDS: METOPROLOL IR 50 MG TABLET 150 MG PO ×2 (09:00→20:28)
[2023-06-07] MEDS: NYSTATIN POWDER 15GM 1 APPLIC TOP ×2 (09:06→20:28)
--- NOTE | 2023-06-07 10:50 | PT.IPTN ---
Current Diagnoses Hypo-osmolality and hyponatremia (06/05/23) Essential (primary) hypertension (06/05/23) Unspecified atrial fibrillation (06/05/23) Heart failure, unspecified (06/05/23) Pneumonia, unspecified organism (06/05/23) Acute respiratory failure with hypoxia (06/05/23) Physical Therapy Treatment Note M2 PT-IP Current Condition Start: 06/06/23 08:21 Freq: NEEDED Status: Active Protocol: Document 06/06/23 11:11 AW (Rec: 06/06/23 11:53 AW [id number]) Physical Therapy Current Condition Current Condition Evaluation Date 06/06/23 Treatment Diagnosis hypoxic respiratory failure; sacral pressure injuries; impaired mobility Onset Date 06/05/23 M3 PT-IP Subjective Start: 06/06/23 08:21 Freq: NEEDED Status: Active Protocol: Document 06/07/23 11:25 TS (Rec: 06/07/23 11:39 TS [id number]) Subjective Physical Therapy Visit Type Type Treatment Note Visit Start Time 10:50 Visit Stop Time 11:23 Total Visit Minutes 33 Number of SCROLL ASSEMBLER Visits 1 Physical Therapy Visit Comments Patient Comments Pt found resting in bed, nursing in room, pt reports back on backside with bed sores, she is agreeable to PT. M4 PT-IP Mobility and Gait Start: 06/06/23 08:21 Freq: NEEDED Status: Active Protocol: Document 06/07/23 11:25 TS (Rec: 06/07/23 11:39 TS [id number]) PT-Bed Mobility Assessment Supine to Sit Supine to Sit Standby Assistance,Bedrails Scooting Scooting to Edge of Bed Independent PT-Transfer Assessment Sit to and From Stand Sit to and from Stand Standby Assistance,Use of Upper Extremities Equipment Transfer Assistive Device Gait Belt,Front Wheeled Walker Orthotic/Prosthetic Devices or Brace: No Comments Mobility Comments Pt found restin in bed, BP 88/ 54, Spo2 96% on 6L. Supine to sit SBA with HOB elevated and use of BUE support. She performed sit to stand with FWW from bed SBA, pt Spo2 desats to 85% on 6L, required cues for PLB, increased to 92% . She stood for ~2mins for brief change and line management. She transferred to chair SBA with FWW. She performed sit to stand x5 with FWW SBA with cues for pushign off arms of chair. In sitting she performed knee flex/ext x10 and knee marches x10. Pt was left back in chair, hospitalist in room, RN notified. Gait Assessment Gait Gait Assistance Required: Standby Assistance Distance (Feet) 2 Assistive Devices Assistive Device Gait Belt,Front Wheeled Walker Orthotic/Prosthetic Devices or Brace: No Comments Gait Comments Stand pivot transfer PT-Balance Assessment Sitting Balance and Reactions Static Sitting Balance Ability Good Dynamic Sitting Balance Ability Good Standing Balance and Reactions Static Standing Balance Ability Fair Dynamic Standing Balance Ability Fair Device Used FWW M5 PT-IP Objective Assessments Start: 06/06/23 08:21 Freq: NEEDED Status: Active Protocol: Document 06/06/23 11:11 AW (Rec: 06/06/23 11:53 AW [id number]) Orientation Orientation/Cognition Level of Alertness Confusional State Orientation Name,Date,Place,Situation Comments Pt endorses some confusion. She scored 19/30 on SLUMS conducted by OT on 05/19/23. Gross Range of Motion Lower Extremity ROM Assessment Within Functional Limits Strength Lower Extremity Strength Assessment Within Functional Limits Comments Strength Comments Grossly 4+/5 BLE except hips 4 /5. Sensation Assessment Sensation Gross Sensation WNL M6 PT-IP Treatment Start: 06/06/23 08:21 Freq: NEEDED Status: Active Protocol: Document 06/06/23 11:11 AW (Rec: 06/06/23 11:53 AW [id number]) Physical Therapy Treatment Other Treatments Other Treatment Performed Transfer training and education on PLB during mobility. M7 PT-IP Assessment and Plan Start: 06/06/23 08:21 Freq: NEEDED Status: Active Protocol: Document 06/07/23 11:25 TS (Rec: 06/07/23 11:39 TS [id number]) PT Summary Assessment and Plan Potential Rehabilitation Potential Good Summary Impairments Strength,Bed Mobility, Transfers,Gait Progress Towards Goals Slow Progress due to Medical Issues Assessment Summary Arlene is making slow progress with her mobility. Her BP is low, 88/54, did not have any complaints of dizziness or lightheadedness with mobility. Spo2 desats to 85% on 6L of o2 from 95% at rest. She continues to perform bed mobility SBA with HOB elevated. She progressed her sit to stand to SBA x6 with use of FWW. She continues to perform transfers with FWW and little ambulation at this time. PT at this time is recommending Home 24/7 with HHPT vs SNF at this time. Pt would benefit from 24/7 assist and daily PT at SNF before d/ c home. As of now pt does not seem to have 24/7 support at home. Goals Bed Mobility Goal Independent Transfer Goal Independent,Four Wheeled Walker Gait Goal Independent,Four Wheel Walker Gait Distance 200 Other Goals - Pt climbs 3 steps with R hand rail mod I for safe home entry Days to Meet Goals 10 Frequency of Treatment Frequency Of Treatment Once a Day Treatment Plan Physical Therapy Treatment Plan Bed Mobility Training,Transfer Training,Gait Training, Therapeutic Exercise,Balance Retraining,Discharge Planning, Hot or Cold Pack,Neuromuscular Re-ed Precautions Other Precautions respiratory status Recommendations To Nursing Amount of Assist Needed 1 Person Assist Discharge Recommendations PT Discharge Recommendations Home with 24/7 Assist Available,Home Health,SNF Rehab,Home vs SNF Transportation Needs at Discharge Wheelchair/Cabulance
--- NOTE | 2023-06-07 12:27 | PC.NURSE ---
Addendum entered by Herlinda Thompson R.N. 06/07/23 18:29: Provider informed: oliguric during the shift. Tarango removed at 1245pm with 210ml. rn shift mgr had 1050 output (received 2 doses of lasix yesterday). 100mL in bladder now from bladder scanner.RN encouraging fluids. Pt a little more forgetful and harder to follow thought patterns this afternoon but oriented. Down to 3L NC from 6L. Addendum entered by Herlinda Thompson R.N. 06/07/23 15:12: Assisted patient throughout the day in repositioning. Pt is able to change position in bed on own, RN frequently reminded patient to reposition when RN not assisting. Performed joselo care and full CHG bath (pt had Tarango removed earlier today). Applied barrier cream and offloaded excoriated area. Original Note: Pt received all scheduled BP meds this am; clarified with provider that it was okay to give metoprolol. RN reassessed BP frequently and assessed pt's response. BP decreased after pt received meds, MAP 65 or greater, pt asymptomatic, denies dizziness, faintness or lightheaded.
--- NOTE | 2023-06-07 14:00 | P.PN_ITS ---
Subjective Subjective Interval history: 73 F admitted with acute respiratory failure secondary to presumed CHF exacerbation with or without possible bacterial PNA, possible COPD exacerbation. She feels a bit better today, now weaned to nasal cannula and overall improving but still feels weak and short of breath generally. Exam Vital Signs (past 8 hours): - 06/07/23 06:02 06/07/23 06:02 06/07/23 07:00 Temperature 97.2 F L Pulse Rate 104 H Respiratory Rate 27 H Blood Pressure 126/72 Pulse Oximetry 91 Oxygen Delivery Method Nasal Cannula Oxygen Flow Rate Fraction of Inspired Oxygen 06/07/23 07:01 06/07/23 07:01 06/07/23 07:09 Temperature 97.5 F L 97.7 F Pulse Rate 106 H 96 H Respiratory Rate 37 H 26 H Blood Pressure 123/95 H Pulse Oximetry 94 95 Oxygen Delivery Method Oxygen Flow Rate Fraction of Inspired Oxygen 06/07/23 07:29 06/07/23 07:30 06/07/23 08:00 Temperature 97.9 F 97.9 F Pulse Rate 84 89 99 H Respiratory Rate 20 25 H 31 H Blood Pressure Pulse Oximetry 92 91 92 Oxygen Delivery Method Nasal Cannula Oxygen Flow Rate 6 Fraction of Inspired Oxygen 36 06/07/23 08:01 06/07/23 08:01 06/07/23 08:30 Temperature 97.9 F 97.9 F Pulse Rate 93 H 99 H Respiratory Rate 25 H 27 H Blood Pressure 90/61 Pulse Oximetry 93 94 Oxygen Delivery Method Oxygen Flow Rate Fraction of Inspired Oxygen 06/07/23 08:38 06/07/23 08:38 06/07/23 09:00 Temperature 97.9 F 98.1 F Pulse Rate 98 H 106 H Respiratory Rate 28 H 32 H Blood Pressure 107/63 Pulse Oximetry 92 94 Oxygen Delivery Method Oxygen Flow Rate Fraction of Inspired Oxygen 06/07/23 09:01 06/07/23 09:01 06/07/23 09:02 Temperature 98.1 F Pulse Rate 100 H Respiratory Rate 38 H Blood Pressure 89/61 L 105/55 L Pulse Oximetry 96 Oxygen Delivery Method Oxygen Flow Rate Fraction of Inspired Oxygen 06/07/23 09:02 06/07/23 09:30 06/07/23 10:00 Temperature 98.1 F 98.2 F 98.2 F Pulse Rate 98 H 106 H 102 H Respiratory Rate 35 H 26 H 31 H Blood Pressure Pulse Oximetry 96 94 96 Oxygen Delivery Method Oxygen Flow Rate Fraction of Inspired Oxygen 06/07/23 10:04 06/07/23 10:04 06/07/23 10:30 Temperature 98.2 F 98.4 F Pulse Rate 95 H 91 H Respiratory Rate 25 H 28 H Blood Pressure 90/50 L Pulse Oximetry 97 97 Oxygen Delivery Method Oxygen Flow Rate Fraction of Inspired Oxygen 06/07/23 10:50 06/07/23 10:50 06/07/23 11:00 Temperature 98.6 F Pulse Rate 86 97 H Respiratory Rate 26 H 39 H Blood Pressure 88/54 L Pulse Oximetry 97 91 Oxygen Delivery Method Oxygen Flow Rate Fraction of Inspired Oxygen 06/07/23 11:30 06/07/23 12:00 Temperature Pulse Rate 85 82 Respiratory Rate 30 H 21 Blood Pressure Pulse Oximetry 95 97 Oxygen Delivery Method Oxygen Flow Rate Fraction of Inspired Oxygen Fraction of Inspired Oxygen 36 SaO2/FiO2 Ratio 255 Oxygen Delivery Method Nasal Cannula Oxygen Flow Rate 6 Narrative Exam Narrative: Gen: no acute distress but on 25 L O2 CV: regular rate with irregularly irregular rhythm, no murmur Pulm: Bibasilar rhonchi, no wheezing Abd: S NT ND Ext: trace b/l LE edema Objective Labs 06/07/23 05:05 06/07/23 05:05 Labs: Laboratory Results - last 24 hr 06/07/23 05:05 WBC 7.5 RBC 3.70 L Hgb 11.4 L Hct 32.5 L MCV 87.7 MCH 30.8 MCHC 35.1 RDW 14.7 Plt Count 274 Neut % (Auto) 87.6 H Lymph % (Auto) 6.2 L [place] % (Auto) 6.0 Eos % (Auto) 0.0 L Baso % (Auto) 0.2 Neut # (Auto) 6600 Lymph # (Auto) 500 L [place] # (Auto) 400 Eos # (Auto) 0 Baso # (Auto) 0 Sodium 126 L Potassium 3.8 Chloride 90 L Carbon Dioxide 30 BUN 34 H Creatinine 0.98 Estimated GFR > 60 BUN/Creatinine Ratio 34.7 H Glucose 192 H Calcium 9.1 Magnesium 2.1 PFSH Medical History Alcoholism Continuous tobacco abuse Hypertension Social History household members: none Smoking Status: Former smoker Assessment & Plan Assessment & Plan narrative: #Atrial fibrillation with rapid ventricular response: - continue metoprolol at 150 mg BID, has improved rate control now in the 80s generally. - will need to discuss care home anticoagulation with patient once respiratory status improved. #acute respiratory failure with hypoxia, COPD with exacerbation - continue supportive therapies, diuresis, antibiotics, and steroids. Etiology likely multifactorial due to PNA after recent influenza infection, CHF, and COPD with exacerbation. - wean from oxygen as able, goal O2 88-96% while on supplemental therapies. #CHF (congestive heart failure): - continue diuresis with furosemide 40 mg IV BID -TTE with Normal EF at 50-55%, normal R ventricular function. RVSP of 46 on that study last month. 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 # Bacterial Pneumonia: - continue ceftriaxone and azithromycin for presumed bacterial pneumonia. # Hypertension: - okay to continue Chronic hyponatremia - continue to follow, no current symptoms. #myocardial injury - downtrended, likely demand due to above respiratory failure. Code: Full, surrogate is patient's son Dispo: Consider SNF depending on PT/OT evaluations. DVT: Lovenox daily, consider AC for afib as noted above.
[2023-06-07] MEDS: OXYCODONE IR 5 MG TABLET 2.5 MG PO (16:38)
[2023-06-07] MEDS: ACETAMINOPHEN 325 MG TABLET 650 MG PO (16:39)
--- NOTE | 2023-06-07 17:17 | OT.IP.TRT ---
Current Diagnoses Hypo-osmolality and hyponatremia (06/05/23) Essential (primary) hypertension (06/05/23) Unspecified atrial fibrillation (06/05/23) Heart failure, unspecified (06/05/23) Pneumonia, unspecified organism (06/05/23) Acute respiratory failure with hypoxia (06/05/23) Occupational Therapy Treatment Note M2 OT-IP Current Condition Start: 06/06/23 15:24 Freq: Status: Active Protocol: Document 06/06/23 15:24 CGR (Rec: 06/06/23 15:46 CGR [id number]) Occupational Therapy Current Condition Current Condition Evaluation Date 06/06/23 Treatment Diagnosis hypoxic PNA Diagnosis Onset Date 06/05/23 M3 OT- IP Subjective and Pain Start: 06/06/23 15:24 Freq: Status: Active Protocol: Document 06/07/23 17:21 [facility] (Rec: 06/07/23 17:35 [facility] [id number]) OT- Subjective Occupational Therapy Visit Type Type Treatment Note Visit Start Time 16:40 Visit Stop Time 17:13 Total Visit Minutes 33 Occupational Therapy Visit Comments Patient Comments Pt agreed to get up. Patient/Caregiver Goals To go home. OT Pain Assessment Pain When Pain Assessed At Rest Pain Present Pain Present Pain Reported Location sacrum, perineal Description Burning Pain Behaviors Calling Out,Facial Grimacing M4 OT- IP ADL's Start: 06/06/23 15:24 Freq: Status: Active Protocol: Document 06/07/23 17:21 [facility] (Rec: 06/07/23 17:35 [facility] [id number]) OT [id number] Comments OT Self-Feeding Comments not meal time OT ADL-Grooming Comments OT Grooming Comments Not performed. OT ADL-Oral Care Comments Oral Care Comments not performed OT ADL-Dressing General Eval Lower Body Dressing Ability Minimal Assistance OT ADL-Toileting General Evaluation Toileting Ability Contact Guard Assistance Comments OT Toileting Comments Pt not able to urinate but able to pull up and down her brief while standing and assist for her balance. OT ADL-Bathing Comments OT Bathing Comments not performed M5 OT- IP IADL's Start: 06/06/23 15:24 Freq: Status: Active Protocol: Document 06/06/23 15:24 CGR (Rec: 06/06/23 15:46 CGR [id number]) OT-Instrumental Activities of Daily Living Deficits IADL Deficits Identified Deficits Home Safety Awareness Awareness of Need for Assistance at Home Decreased Awareness Ability to Problem Solve Emergency Unable to Problem Solve Situations Medication Management Medication Management Comments concerns regarding pt's ability to perform Money Management Money Management Comments concerns regarding pt's ability to perform Meal Preparation Meal Preparation Comments concerns regarding pt's ability to perform World Travel Counselor World Travel Counselor Comments concerns regarding pt's ability to perform Driving Driving Comments pt does not drive M6 OT- IP Functional Cognition Start: 06/06/23 15:24 Freq: Status: Active Protocol: Document 06/07/23 17:21 [facility] (Rec: 06/07/23 17:35 [facility] [id number]) Cognitive Factors Limiting Selfcare Function Cognitive Comments Cognitive Assessment Comments Pt is very forgetful and hard of hearing. Pt is very tangential on her conversations and thought processes and has difficulty to stay on the same topic. Pt insists her friend Juan takes good care of her but not in a relationship with her. Pt insists that she has friends to assist her. To retry SLUM as pt scored 19/30, which implies dementia on last admit 05/20/23. M7 OT- IP Mobility and Balance Start: 06/06/23 15:24 Freq: Status: Active Protocol: Document 06/07/23 17:21 [facility] (Rec: 06/07/23 17:35 [facility] [id number]) OT-Transfer Assessment Sit to and From Stand Sit to and from Stand Contact Guard Assistance Transfers Transfer Ability Standby Assistance,Contact Guard Assistance Technique Transfer Destination Bed,Bedside Commode Transfer Technique Stand Step Pivot Devices Transfer Assistive Devices Gait Belt,Front Wheeled Walker Comments Mobility Comments Pt needing assist to help hold the lines and tubing. mainly SBA with occasional CGA with FWW. pt on 3L of O2 and from mid 80's to 92%. OT- Balance Assessment Sitting Balance and Reactions Static Sitting Balance Ability Good Dynamic Sitting Balance Ability Good Standing Balance and Reactions Static Standing Balance Ability Good Dynamic Standing Balance Ability Fair M8 OT- IP Objective Assessments Start: 06/06/23 15:24 Freq: Status: Active Protocol: Document 06/06/23 15:24 CGR (Rec: 06/06/23 15:46 CGR [id number]) OT Gross Range of Motion Upper Extremity Range of Motion Assessment Within Functional Limits OT Strength Upper Extremity Strength Assessment Within Functional Limits Comments Strength Comments grossly 4/5 OT- Coordination Assessment Upper Extremity Finger to Nose Test Within Functional Limits Finger Tapping Test Within Functional Limits OT-Muscle Tone Assessment Muscle Tone WNL Yes OT Sensation Assessment Edema Edema Absent M9 OT- IP Assessment and Plan Start: 06/06/23 15:24 Freq: Status: Active Protocol: Document 06/07/23 17:21 [facility] (Rec: 06/07/23 17:35 [facility] [id number]) OT Summary Assessment and Plan Potential Rehabilitation Potential Good Analytic Complexity at Evaluation High Summary OT Impairments Strength,Balance,Functional Cognition,Functional Mobility, Grooming,Dressing,Toileting, Bathing,Toilet Transfers, Shower Transfers,Activity Tolerance Progress Towards Goals Slow Progress due to Medical Issues,Slow Progress due to Cognition Assessment Summary Pt able to get out of bed and use the BSC with FWW. Pt O2 fluctuates from mid 80's to 92 % at this time. Pt decreased insight to her needs and unsure if pt has a good support system at home to assist her if needed. Pt will benefit from reliable assist at home and home health versus skilled rehab. Goals Self-Feeding Goal Independent Grooming Goal Independent Dressing Goal Independent Toileting Goal Independent Bathing Goal Independent Toilet Transfer Goal Independent Shower Transfer Goal Independent Days to Meet Goals 10 Frequency of Treatment Frequency Of Treatment Once a Day Treatment Plan OT Treatment Plan ADL Training,Functional Cognition Training,Functional Mobility,Patient/Family Education,Discharge Planning Other Treatment Recommendations and Next SLUMS Treatment Focus Discharge Recommendations OT Discharge Recommendations Home with Assistance,Home Health,SNF Rehab,Home vs SNF Transportation Needs at Discharge Private Vehicle
[2023-06-08] VITALS (13 sets, daily range): BP systolic 102–154; BP diastolic 59–89; PULSE 77–93; RESP 14–28; TEMP 36.2–36.8; O2SAT 90–97
[2023-06-08 05:35] LABS: Add Manual Diff / Slide Review NO; Basophils Absolute Auto 0 /uL (0-100); Basophils Percent Auto 0.2 % (0-2); Eosinophils Absolute Auto 0 /uL (0-450); Hemoglobin 11.9 g/dL (12.0-16.0); Lymphocytes Absolute Auto 800 /uL (1100-4500); Lymphocytes Percent Auto 6.7 % (25-40); Mean Corpuscular HGB Conc 34.1 % (30-36); Mean Corpuscular Hemoglobin 30.4 PG (26-34); Monocytes Absolute Auto 900 /uL (0-900); Neutrophils Absolute Auto 9900 /uL (1500-7000); Neutrophils Percent Auto 85.1 % (50-75); Platelet Count 322 X10^3/uL (150-400); Red Blood Cell Count 3.93 X10^6/uL (4.0-5.2); Red Cell Distribution Width 14.5 % (11.6-14.8); White Blood Cell Count 11.6 X10^3/uL (4.5-11.0)
[2023-06-08 05:42] LABS: BUN Creatinine Ratio 39.8 (6-22); Blood Urea Nitrogen 33 mg/dL (7-17); Calcium 9.5 mg/dL (8.4-10.2); Carbon Dioxide 29 mmol/L (22-32); Chloride 91 mmol/L (98-107); Estimated Glomerular Filt Rate > 60 mL/min (>60); Glucose 119 mg/dL (80-110); HEMOLYSIS < 15 (0-50); Magnesium 1.9 mg/dL (1.6-2.3); Potassium 3.5 mmol/L (3.4-5.1); Sodium 127 mmol/L (137-145)
[2023-06-08] MEDS: PANTOPRAZOLE DR 40 MG TABLET PO (07:10)
[2023-06-08] MEDS: BUDESONIDE 0.5 MG/2 ML NEB INH ×2 (07:18→19:42)
[2023-06-08] MEDS: ALBUTEROL/IPRATROPIUM 3 ML AMPUL INH ×2 (07:18→19:42)
[2023-06-08] MEDS: CEFEPIME 1 GM in SODIUM CHLORIDE 0.9% 100 ML IV ×2 (08:22→20:58)
[2023-06-08] MEDS: GABAPENTIN 300 MG CAPSULE 600 MG PO ×2 (08:22→20:59)
[2023-06-08] MEDS: METOPROLOL IR 50 MG TABLET 150 MG PO ×2 (08:22→20:58)
[2023-06-08] MEDS: MELOXICAM 7.5 MG TABLET 15 MG PO (08:29)
[2023-06-08] MEDS: predniSONE 20 MG TABLET 40 MG PO (08:29)
[2023-06-08] MEDS: NICOTINE 14 PATCH 14 MG TOP (08:29)
[2023-06-08] MEDS: ESCITALOPRAM 10 MG TABLET 5 MG PO (08:30)
[2023-06-08] MEDS: NYSTATIN POWDER 15GM 1 APPLIC TOP ×2 (08:31→21:01)
--- NOTE | 2023-06-08 12:16 | P.PN_ITS ---
Subjective Subjective Interval history: 73 F admitted with acute respiratory failure secondary to presumed CHF exacerbation with or without possible bacterial PNA, possible COPD exacerbation. She feels a bit better today, now weaned to nasal cannula at 2-3 L and overall improving but still feels weak and short of breath generally. Having more coughing fits today. Exam Vital Signs (past 8 hours): - 06/08/23 04:45 06/08/23 07:18 06/08/23 09:00 Temperature 98.2 F 97.1 F L Pulse Rate 86 82 93 H Respiratory Rate 15 20 28 H Blood Pressure 137/79 154/85 H Pulse Oximetry 97 96 92 Oxygen Delivery Method Oximask Oxygen Flow Rate 4 4 Fraction of Inspired Oxygen 32 SaO2/FiO2 Ratio 287 Oxygen Delivery Method Oximask Oxygen Flow Rate 4 Narrative Exam Narrative: Gen: no acute distress but on 25 L O2 CV: regular rate with irregularly irregular rhythm, no murmur Pulm: Bibasilar rales, no wheezing Abd: S NT ND Ext: trace b/l LE edema Objective Labs 06/08/23 05:08 06/08/23 05:08 Labs: Laboratory Results - last 24 hr 06/08/23 05:08 WBC 11.6 H D RBC 3.93 L Hgb 11.9 L Hct 35.0 L MCV 89.0 MCH 30.4 MCHC 34.1 RDW 14.5 Plt Count 322 Neut % (Auto) 85.1 H Lymph % (Auto) 6.7 L Nicholas % (Auto) 8.0 Eos % (Auto) 0.0 L Baso % (Auto) 0.2 Neut # (Auto) 9900 H Lymph # (Auto) 800 L Nicholas # (Auto) 900 Eos # (Auto) 0 Baso # (Auto) 0 Sodium 127 L Potassium 3.5 Chloride 91 L Carbon Dioxide 29 BUN 33 H Creatinine 0.83 Estimated GFR > 60 BUN/Creatinine Ratio 39.8 H Glucose 119 H Calcium 9.5 Magnesium 1.9 PFSH Medical History Alcoholism Continuous tobacco abuse Hypertension Social History household members: none Smoking Status: Former smoker Assessment & Plan Assessment & Plan narrative: #Atrial fibrillation with rapid ventricular response: - continue metoprolol at 150 mg BID, has improved rate control now in the 80s generally. - address anticoagulation need closer to discharge. #acute respiratory failure with hypoxia, COPD with exacerbation - continue supportive therapies, diuresis, antibiotics, and steroids. Etiology likely multifactorial due to PNA after recent influenza infection, CHF, and COPD with exacerbation. - wean from oxygen as able, goal O2 88-96% while on supplemental therapies. - continue treatments as discussed separately below. - steroids with prednisone 40 mg daily x4 days after initial solumedrol given in the ER. #CHF (congestive heart failure) with preserved EF. - continued diuresis with furosemide 40 mg IV BID initially, now holding with hyponatremia, low BP. Continue diuresis prn. Will order to start oral furosemide 20 mg (home dosing tomorrow AM). -TTE with Normal EF at 50-55%, normal R ventricular function. RVSP of 46 on that study last month. 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 # Bacterial Pneumonia: - continue cefepime for presumed bacterial pneumonia. # Hypertension: - holding home lisinopril, amlodipine in setting of rate control. Chronically on furosemide 20 mg, now diurese as needed. # Chronic hyponatremia - continue to follow, no current symptoms. Na 127 today #myocardial injury - downtrended, likely demand due to above respiratory failure. Code: Full, surrogate is patient's son Dispo: Home vs SNF, pending improvement in oxygen requirements. DVT: Lovenox daily, consider AC for afib as noted above.
[2023-06-08] MEDS: POTASSIUM CHLORIDE 20 MEQ TAB 40 MEQ PO (12:24)
--- NOTE | 2023-06-08 14:42 | PT.IPTN ---
Current Diagnoses Hypo-osmolality and hyponatremia (06/05/23) Essential (primary) hypertension (06/05/23) Unspecified atrial fibrillation (06/05/23) Heart failure, unspecified (06/05/23) Pneumonia, unspecified organism (06/05/23) Acute respiratory failure with hypoxia (06/05/23) Physical Therapy Treatment Note M2 PT-IP Current Condition Start: 06/06/23 08:21 Freq: NEEDED Status: Active Protocol: Document 06/06/23 11:11 AW (Rec: 06/06/23 11:53 AW [id number]) Physical Therapy Current Condition Current Condition Evaluation Date 06/06/23 Treatment Diagnosis hypoxic respiratory failure; sacral pressure injuries; impaired mobility Onset Date 06/05/23 M3 PT-IP Subjective Start: 06/06/23 08:21 Freq: NEEDED Status: Active Protocol: Document 06/08/23 14:42 AB (Rec: 06/08/23 15:51 AB [id number]) Subjective Physical Therapy Visit Type Type Treatment Note Visit Start Time 14:42 Visit Stop Time 14:57 Total Visit Minutes 15 Number of TRAVEL CONSULTANT Visits 0 Physical Therapy Visit Comments Patient Comments agreeable to do PT M4 PT-IP Mobility and Gait Start: 06/06/23 08:21 Freq: NEEDED Status: Active Protocol: Document 06/08/23 14:42 AB (Rec: 06/08/23 15:51 AB [id number]) PT-Transfer Assessment Sit to and From Stand Sit to and from Stand Standby Assistance,Contact Guard Assistance,1 Person Assistance,Use of Upper Extremities Equipment Transfer Assistive Device Gait Belt,Front Wheeled Walker Orthotic/Prosthetic Devices or Brace: No Transfers Transfer Destination Chair Transfer Technique ambulated Transfer Ability Level of Assist Standby Assistance,Contact Guard Assistance,1 Person Assistance,Use of Upper Extremities Comments Mobility Comments pt sitting on bedside commode with nurse in room. O2 sat seated: 93% with 4L/min O2. pt completed sit to stand from the bedside commode SBA to CGA. pt needs assistance with hygiene care and brief management. pt ambulated in room using FWW SBA to CGA ~ 75 ft. pt can be impulsive. pt agreed to stay seated on the chair. positioned pt on the chair. call light and table placed within reach. O2 sat after ambulation, seated: 89%. Nurse and therapeutic case manager in room and is talking to the pt. Left pt with nurse and therapeutic case manager. Gait Assessment Gait Gait Assistance Required: Standby Assistance,Contact Guard Assist Distance (Feet) 75 Able to Maintain Weight Bearing Status Yes During Gait Assistive Devices Assistive Device Gait Belt,Front Wheeled Walker Orthotic/Prosthetic Devices or Brace: No Gait Deviations General Gait Pattern Decreased Stride Length, Decreased Feet Clearance Factors Limiting Gait Function Factors Limiting Gait Function Decreased Activity Tolerance, Decreased Strength,Poor Safety Awareness,Respiratory Distress M5 PT-IP Objective Assessments Start: 06/06/23 08:21 Freq: NEEDED Status: Active Protocol: Document 06/06/23 11:11 AW (Rec: 06/06/23 11:53 AW [id number]) Orientation Orientation/Cognition Level of Alertness Confusional State Orientation Name,Date,Place,Situation Comments Pt endorses some confusion. She scored 19/30 on SLUMS conducted by OT on 05/19/23. Gross Range of Motion Lower Extremity ROM Assessment Within Functional Limits Strength Lower Extremity Strength Assessment Within Functional Limits Comments Strength Comments Grossly 4+/5 BLE except hips 4 /5. Sensation Assessment Sensation Gross Sensation WNL M6 PT-IP Treatment Start: 06/06/23 08:21 Freq: NEEDED Status: Active Protocol: Document 06/08/23 14:42 AB (Rec: 06/08/23 15:51 AB [id number]) Physical Therapy Treatment Education Education Provided Safety M7 PT-IP Assessment and Plan Start: 06/06/23 08:21 Freq: NEEDED Status: Active Protocol: Document 06/08/23 14:42 AB (Rec: 06/08/23 15:51 AB [id number]) PT Summary Assessment and Plan Potential Rehabilitation Potential Fair Summary Impairments Pain,ROM,Strength,Balance, Coordination,Sensation,Tone, Cognition,Bed Mobility, Transfers,Gait,Activity Tolerance Progress Towards Goals Slow Progress due to Medical Issues,Slow Progress due to Activity Tolerance Assessment Summary pt requiring SBA to CGA with transfers and ambulation using FWW but with decrease o2 sat to 89% after ambulation with 4L/min O2. pt lives alone and will need assistance. at this time, may require SNF rehab to improve overall strength and mobility independence. will continue to assess progress for safe d/c plan. Goals Bed Mobility Goal Independent Transfer Goal Independent,Four Wheeled Walker Gait Goal Independent,Four Wheel Walker Gait Distance 200 Other Goals - Pt climbs 3 steps with R hand rail mod I for safe home entry Days to Meet Goals 10 Frequency of Treatment Frequency Of Treatment Once a Day Treatment Plan Physical Therapy Treatment Plan Bed Mobility Training,Transfer Training,Gait Training, Therapeutic Exercise,Balance Retraining,Discharge Planning, Hot or Cold Pack,Neuromuscular Re-ed Precautions Other Precautions O2 sat Recommendations To Nursing Amount of Assist Needed 1 Person Assist Discharge Recommendations PT Discharge Recommendations Home with 24/01 Assist Available,Home Health,SNF Rehab,Home vs SNF Transportation Needs at Discharge Private Vehicle,Wheelchair/ Cabulance
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
--- NOTE | 2023-06-08 16:42 | OT.IPNOTE ---
Checked on pt for OT, pt states too cold and not wanting to get up at this time. Pt agreed to shower for OT treatment tomorrow.
--- NOTE | 2023-06-08 17:36 | PC.NURSE ---
Day shift: Pt A&Ox3, unsure of date today. Reports feeling tired this morning. VSS, afebrile. Up to BSA, incontinent of urine. Pt declined bath, asked several times. Pt friend Juan arrived. Pulled this RN aside, attempted to hand this RN a paper towel with what appeared to be a small moving white worm. Pt friend Juan reported having worms for forever now and they're coming out everywhere. This RN advised Juan to go to walk in clinic, primary care doctor, or emergency department. Pt and friend Juan on the phone with the pt's bank for several minutes. Friend Juan on window bench, head down, eyes closed. This RN requested assistance from LIQUOR MAKER (See LIQUOR MAKER Berta Perez's note for more details). Friend Juan agreed to leave. Approximately ten minutes later, pt friend Juan arrived again with pt's checkbook before leaving again. Pt reports, I trust Juan more than anybody in my life. Pt up to chair. LAC IV compromised, removed. This RN began to start a new IV. Of note, pt received a call from [employer], custodian blood bank requesting verification of a $200 check written to friend Juan. Pt stated, Yes, I wrote that, I authorize the check being cashed. Pt up to BSC 1PA SBA, then back to bed. Pt tolerating dinner. VSS, call light within reach. Care ongoing. Will continue to monitor.
[2023-06-09] VITALS (7 sets, daily range): BP systolic 95–148; BP diastolic 55–90; PULSE 78–114; RESP 18–22; TEMP 35.8–36.4; O2SAT 92–98
[2023-06-09 04:25] LABS: Hematocrit 33.5 % (36-46); Hemoglobin 11.6 g/dL (12.0-16.0); Mean Corpuscular HGB Conc 34.6 % (30-36); Mean Corpuscular Hemoglobin 30.6 PG (26-34); Mean Corpuscular Volume 88.4 fL (80-100); Platelet Count 322 X10^3/uL (150-400); Red Blood Cell Count 3.79 X10^6/uL (4.0-5.2); Red Cell Distribution Width 14.7 % (11.6-14.8); White Blood Cell Count 7.2 X10^3/uL (4.5-11.0)
[2023-06-09 04:26] LABS: Add Manual Diff / Slide Review YES
[2023-06-09 04:37] LABS: BUN Creatinine Ratio 40.5 (6-22); Blood Urea Nitrogen 32 mg/dL (7-17); Calcium 9.5 mg/dL (8.4-10.2); Carbon Dioxide 29 mmol/L (22-32); Chloride 98 mmol/L (98-107); Estimated Glomerular Filt Rate > 60 mL/min (>60); Glucose 113 mg/dL (80-110); HEMOLYSIS < 15 (0-50); Magnesium 1.8 mg/dL (1.6-2.3); Potassium 4.3 mmol/L (3.4-5.1); Sodium 131 mmol/L (137-145)
[2023-06-09 05:04] LABS: Neutrophils Absolute Manual 5760 /uL (3000-5900); Total Cells Counted 100
[2023-06-09 05:05] LABS: RBC Morphology Normal Morphology
[2023-06-09] MEDS: ALBUTEROL/IPRATROPIUM 3 ML AMPUL INH ×2 (08:25→20:20)
[2023-06-09] MEDS: BUDESONIDE 0.5 MG/2 ML NEB INH ×2 (08:25→20:20)
[2023-06-09] MEDS: ENOXAPARIN 40 MG/0.4 ML SYRINGE SUBCUT (08:41)
[2023-06-09] MEDS: METOPROLOL IR 50 MG TABLET 150 MG PO ×2 (08:42→21:02)
[2023-06-09] MEDS: NICOTINE 14 PATCH 14 MG TOP (08:42)
[2023-06-09] MEDS: GABAPENTIN 300 MG CAPSULE 600 MG PO ×2 (08:42→21:02)
[2023-06-09] MEDS: FUROSEMIDE 20 MG TABLET PO (08:43)
[2023-06-09] MEDS: HYDROCODONE/ACET 5/325 TABLET 1 TAB PO ×2 (08:43→21:01)
[2023-06-09] MEDS: predniSONE 20 MG TABLET 40 MG PO (08:44)
[2023-06-09] MEDS: BENZONATATE 100 MG CAPSULE PO (08:44)
[2023-06-09] MEDS: ESCITALOPRAM 10 MG TABLET 5 MG PO (08:44)
[2023-06-09] MEDS: MELOXICAM 7.5 MG TABLET 15 MG PO (08:44)
[2023-06-09] MEDS: PANTOPRAZOLE DR 40 MG TABLET PO (08:44)
[2023-06-09] MEDS: CEFEPIME 1 GM in SODIUM CHLORIDE 0.9% 100 ML IV ×2 (08:47→20:59)
[2023-06-09] MEDS: NYSTATIN POWDER 15GM 1 APPLIC TOP ×2 (10:38→21:02)
--- NOTE | 2023-06-09 13:59 | CM.SWNOTE ---
DIRECTOR SOCIAL WELFARE Note Placed report for self neglectful behavior. Online Report Confirmation Number: [id number]. According to Dileep Bazan, APS Block Breaker Operator, patient has multiple reports open, wage and hour investigator assigned is Kimberly Toscano. Contact information (?) JW
--- NOTE | 2023-06-09 14:25 | PT.IPTN ---
Current Diagnoses Hypo-osmolality and hyponatremia (06/05/23) Essential (primary) hypertension (06/05/23) Unspecified atrial fibrillation (06/05/23) Heart failure, unspecified (06/05/23) Pneumonia, unspecified organism (06/05/23) Acute respiratory failure with hypoxia (06/05/23) Physical Therapy Treatment Note M2 PT-IP Current Condition Start: 06/06/23 08:21 Freq: NEEDED Status: Active Protocol: Document 06/06/23 11:11 AW (Rec: 06/06/23 11:53 AW [id number]) Physical Therapy Current Condition Current Condition Evaluation Date 06/06/23 Treatment Diagnosis hypoxic respiratory failure; sacral pressure injuries; impaired mobility Onset Date 06/05/23 M3 PT-IP Subjective Start: 06/06/23 08:21 Freq: NEEDED Status: Active Protocol: Document 06/09/23 15:07 TS (Rec: 06/09/23 15:22 TS [id number]) Subjective Physical Therapy Visit Type Type Treatment Note Visit Start Time 14:25 Visit Stop Time 15:04 Total Visit Minutes 39 Number of SPANISH TEACHER Visits 1 Physical Therapy Visit Comments Patient Comments Pt found resting in bed on 2L of o2, Spo2 95%, pt reports she feels like she is getting better, would like to have a shower. Pt agreeable to PT M4 PT-IP Mobility and Gait Start: 06/06/23 08:21 Freq: NEEDED Status: Active Protocol: Document 06/09/23 15:07 TS (Rec: 06/09/23 15:22 TS [id number]) PT-Bed Mobility Assessment Supine to Sit Supine to Sit Standby Assistance,Bedrails Scooting Scooting to Edge of Bed Independent PT-Transfer Assessment Sit to and From Stand Sit to and from Stand Standby Assistance,1 Person Assistance,Use of Upper Extremities Equipment Transfer Assistive Device Gait Belt Orthotic/Prosthetic Devices or Brace: No Comments Mobility Comments Supine to sit SBA with HOB elevated. She performed sit to stand x1 SBA with no AD, is unsteady in standing with no device, pt impulsive to stand before therapist is ready, pt cued for safety. She ambulated in hallway 250' SBA with FWW and 2L of o2, pt is unsteady with gait but has no buckling or LOB. Pt ambulated back to room, requested to have shower , nursing and OT notified. Stand to sit in chair SBA, pt tends to leave FWW behind and sits with poor safety awareness. Pt was left in chair, all needs met. Gait Assessment Gait Gait Assistance Required: Standby Assistance Distance (Feet) 250 Able to Maintain Weight Bearing Status Yes During Gait Assistive Devices Assistive Device Gait Belt,Front Wheeled Walker Orthotic/Prosthetic Devices or Brace: No Gait Deviations General Gait Pattern Narrow Based Gait Factors Limiting Gait Function Factors Limiting Gait Function Decreased Activity Tolerance, Decreased Strength,Poor Safety Awareness,Respiratory Distress Comments Gait Comments See mobility comments PT-Balance Assessment Sitting Balance and Reactions Static Sitting Balance Ability Good Dynamic Sitting Balance Ability Good Standing Balance and Reactions Static Standing Balance Ability Good Dynamic Standing Balance Ability Fair Device Used FWW M5 PT-IP Objective Assessments Start: 06/06/23 08:21 Freq: NEEDED Status: Active Protocol: Document 06/06/23 11:11 AW (Rec: 06/06/23 11:53 AW [id number]) Orientation Orientation/Cognition Level of Alertness Confusional State Orientation Name,Date,Place,Situation Comments Pt endorses some confusion. She scored 19/30 on SLUMS conducted by OT on 05/19/23. Gross Range of Motion Lower Extremity ROM Assessment Within Functional Limits Strength Lower Extremity Strength Assessment Within Functional Limits Comments Strength Comments Grossly 4+/5 BLE except hips 4 /5. Sensation Assessment Sensation Gross Sensation WNL M6 PT-IP Treatment Start: 06/06/23 08:21 Freq: NEEDED Status: Active Protocol: Document 06/09/23 15:07 TS (Rec: 06/09/23 15:22 TS [id number]) Physical Therapy Treatment Education Education Provided Safety M7 PT-IP Assessment and Plan Start: 06/06/23 08:21 Freq: NEEDED Status: Active Protocol: Document 06/09/23 15:07 TS (Rec: 06/09/23 15:22 TS [id number]) PT Summary Assessment and Plan Potential Rehabilitation Potential Fair Summary Impairments Pain,ROM,Strength,Balance, Coordination,Sensation,Tone, Cognition,Bed Mobility, Transfers,Gait,Activity Tolerance Progress Towards Goals Progressing Toward Goals Assessment Summary Arlene is making some progress with her mobility this session. She continues to be SBA with all bed mobility and sit to stand with FWW. She progressed her gait to ~250' SBA with FWW and 2L of o2. She did not have complaints of SOB and after mobility Spo2 was 93%. She does lack good safety awareness with her mobility. She tends to let FWW go before it is safe to sit and requires cueing for some mobility. Her activity tolerance for mobility appears to be improving. PT is recommending home with 24/7 assist and HHPT. Goals Bed Mobility Goal Independent Transfer Goal Independent,Four Wheeled Walker Gait Goal Independent,Four Wheel Walker Gait Distance 200 Other Goals - Pt climbs 3 steps with R hand rail mod I for safe home entry Days to Meet Goals 10 Frequency of Treatment Frequency Of Treatment Once a Day Treatment Plan Physical Therapy Treatment Plan Bed Mobility Training,Transfer Training,Gait Training, Therapeutic Exercise,Balance Retraining,Discharge Planning, Hot or Cold Pack,Neuromuscular Re-ed Precautions Other Precautions O2 sat Recommendations To Nursing Amount of Assist Needed Standby Assistance Discharge Recommendations PT Discharge Recommendations Home with 24/7 Assist Available,Home Health Transportation Needs at Discharge Private Vehicle,Wheelchair/ Cabulance
--- NOTE | 2023-06-09 15:31 | PM.PN.1 ---
Subjective Subjective Interval history: Patient back to 2L NC. She still doesn't feel very well. Exam Vital Signs (past 8 hours): - 06/09/23 08:00 06/09/23 08:25 06/09/23 12:00 Temperature 97.5 F L 97.2 F L Pulse Rate 97 H 114 H 78 Respiratory Rate 20 20 22 Blood Pressure 148/85 H 135/83 Pulse Oximetry 92 93 95 Oxygen Delivery Method Oximask Oxygen Flow Rate 2 2 2 Fraction of Inspired Oxygen 28 Fraction of Inspired Oxygen 28 SaO2/FiO2 Ratio 332 Oxygen Delivery Method Oximask Oxygen Flow Rate 2 Narrative Exam Narrative: Gen: no acute distress, on 2L NC CV: regular rate with irregularly irregular rhythm, no murmur Pulm: Bibasilar rales, no wheezing Abd: S NT ND Ext: trace b/l LE edema Objective Labs 06/09/23 03:32 06/09/23 03:32 Labs: Laboratory Results - last 24 hr 06/09/23 03:32 WBC 7.2 RBC 3.79 L Hgb 11.6 L Hct 33.5 L MCV 88.4 MCH 30.6 MCHC 34.6 RDW 14.7 Plt Count 322 Neut % (Auto) Not Reportable Lymph % (Auto) Not Reportable Slope % (Auto) Not Reportable Eos % (Auto) Not Reportable Baso % (Auto) Not Reportable Lymph # (Auto) Not Reportable Slope # (Auto) Not Reportable Baso # (Auto) Not Reportable Total Counted 100 Seg Neutrophils % 79.0 H Band Neutrophils % 1.0 L Lymphocytes % (Manual) 12.0 L Monocytes % (Manual) 8.0 Neutrophils # (Manual) 5760 RBC Morphology Normal morphology Sodium 131 L Potassium 4.3 Chloride 98 Carbon Dioxide 29 BUN 32 H Creatinine 0.79 Estimated GFR > 60 BUN/Creatinine Ratio 40.5 H Glucose 113 H Calcium 9.5 Magnesium 1.8 PFSH Medical History Alcoholism Continuous tobacco abuse Hypertension Social History household members: none Smoking Status: Former smoker Assessment & Plan Assessment & Plan narrative: #Atrial fibrillation with rapid ventricular response, RVR resolved - continue metoprolol at 150 mg BID, has improved rate control now in the 80s generally. - address anticoagulation need closer to discharge. #acute respiratory failure with hypoxia, COPD with exacerbation - continue supportive therapies, diuresis, antibiotics, and steroids. Etiology likely multifactorial due to PNA after recent influenza infection, CHF, and COPD with exacerbation. - wean from oxygen as able, goal O2 88-96% while on supplemental therapies. - continue treatments as discussed separately below. - steroids with prednisone 40 mg daily x4 days after initial solumedrol given in the ER. #CHF (congestive heart failure) with preserved EF. -continued diuresis with furosemide 40 mg IV BID initially, now holding with hyponatremia, low BP. Continue diuresis prn. Restarted home oral furosemide 20 mg daily. -TTE with Normal EF at 50-55%, normal R ventricular function. RVSP of 46 on that study last month. 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 # Bacterial Pneumonia: - continue cefepime for presumed bacterial pneumonia x5 days # Hypertension: - holding home lisinopril, amlodipine in setting of rate control. Chronically on furosemide 20 mg, now diurese as needed. # Chronic hyponatremia - continue to follow, no current symptoms. Na 127 today #myocardial injury - downtrended, likely demand due to above respiratory failure. Code: Full, surrogate is patient's son Dispo: Home vs SNF, pending improvement in oxygen requirements. DVT: Lovenox daily, consider AC for afib as noted above.
--- NOTE | 2023-06-09 15:40 | OT.IP.TRT ---
Current Diagnoses Hypo-osmolality and hyponatremia (06/05/23) Essential (primary) hypertension (06/05/23) Unspecified atrial fibrillation (06/05/23) Heart failure, unspecified (06/05/23) Pneumonia, unspecified organism (06/05/23) Acute respiratory failure with hypoxia (06/05/23) Occupational Therapy Treatment Note M2 OT-IP Current Condition Start: 06/06/23 15:24 Freq: Status: Active Protocol: Document 06/06/23 15:24 CGR (Rec: 06/06/23 15:46 CGR [id number]) Occupational Therapy Current Condition Current Condition Evaluation Date 06/06/23 Treatment Diagnosis hypoxic PNA Diagnosis Onset Date 06/05/23 M3 OT- IP Subjective and Pain Start: 06/06/23 15:24 Freq: Status: Active Protocol: Document 06/09/23 15:40 CCC (Rec: 06/09/23 15:53 [facility] [id number]) OT- Subjective Occupational Therapy Visit Type Type Treatment Note Visit Start Time 15:15 Visit Stop Time 15:40 Total Visit Minutes 25 Occupational Therapy Visit Comments Patient Comments Pt wanting to shower and getting distracted by her phone. Patient/Caregiver Goals To get better. OT Pain Assessment Pain When Pain Assessed At Rest Pain Present Pain Present Denied Pain M4 OT- IP ADL's Start: 06/06/23 15:24 Freq: Status: Active Protocol: Document 06/09/23 15:40 [facility] (Rec: 06/09/23 15:53 [facility] [id number]) OT [id number] Comments OT Self-Feeding Comments not meal time OT ADL-Grooming General Evaluation Grooming Ability Moderate Assistance Comments OT Grooming Comments Pt will need assist to help comb the snarls in her hair. OT ADL-Oral Care Comments Oral Care Comments not performed OT ADL-Dressing General Eval Lower Body Dressing Ability Minimal Assistance Comments OT Dressing Comments Assist to help doff her socks prior to the shower. OT ADL-Toileting General Evaluation Toileting Ability Moderate Assistance Comments OT Toileting Comments Pt needing assist for completeness for wiping at this time. Pt needign cues to sequence for the task to toileting today. Pt states, I just do not know what to do. OT ADL-Bathing Bathing Type Bathing Type Shower Comments OT Bathing Comments Pt will need step by step instructions andn assist to help sequence through the task of showering as pt is confused and very distratced. M5 OT- IP IADL's Start: 06/06/23 15:24 Freq: Status: Active Protocol: Document 06/06/23 15:24 CGR (Rec: 06/06/23 15:46 CGR [id number]) OT-Instrumental Activities of Daily Living Deficits IADL Deficits Identified Deficits Home Safety Awareness Awareness of Need for Assistance at Home Decreased Awareness Ability to Problem Solve Emergency Unable to Problem Solve Situations Medication Management Medication Management Comments concerns regarding pt's ability to perform Money Management Money Management Comments concerns regarding pt's ability to perform Meal Preparation Meal Preparation Comments concerns regarding pt's ability to perform Research Nutritionist Research Nutritionist Comments concerns regarding pt's ability to perform Driving Driving Comments pt does not drive M6 OT- IP Functional Cognition Start: 06/06/23 15:24 Freq: Status: Active Protocol: Document 06/09/23 15:40 [facility] (Rec: 06/09/23 15:53 [facility] [id number]) Cognitive Factors Limiting Selfcare Function Cognitive Ability Level of Alertness Confusional State Attention Span Ability Capable of Focused Attention, Unable to Sustain Attention Cognitive Comments Cognitive Assessment Comments Pt not able to sequence to be able to toilet herself and not know that she is needing to wipe after urinating or having a bowel movement. Pt needing step by stpe commands and getting confused and states, I just do not know what to do . Nursing aid called in to come in to help complete the shower for pt as today not capable of sequencing the task to be able to shower. In addition pt getting very tired and just wanting assist to complete the shower. Pt continues to have poor safety awareness and needing cues to push up from the recliner prior to standing . Pt not able to keep the O2 tubing from getting tangled on the FWW at this time. M7 OT- IP Mobility and Balance Start: 06/06/23 15:24 Freq: Status: Active Protocol: Document 06/09/23 15:40 [facility] (Rec: 06/09/23 15:53 [facility] [id number]) OT-Transfer Assessment Sit to and From Stand Sit to and from Stand Contact Guard Assistance Transfers Transfer Ability Contact Guard Assistance Technique Transfer Destination Chair,Shower Stall,Toilet Transfer Technique Stand Step Pivot Devices Transfer Assistive Devices Gait Belt,Front Wheeled Walker Comments Mobility Comments Pt CGA for balance when getting into the shower , otherwise at times is able to move with close SBA. OT- Balance Assessment Sitting Balance and Reactions Static Sitting Balance Ability Good Dynamic Sitting Balance Ability Good Standing Balance and Reactions Static Standing Balance Ability Good Dynamic Standing Balance Ability Fair M8 OT- IP Objective Assessments Start: 06/06/23 15:24 Freq: Status: Active Protocol: Document 06/06/23 15:24 CGR (Rec: 06/06/23 15:46 CGR [id number]) OT Gross Range of Motion Upper Extremity Range of Motion Assessment Within Functional Limits OT Strength Upper Extremity Strength Assessment Within Functional Limits Comments Strength Comments grossly 4/5 OT- Coordination Assessment Upper Extremity Finger to Nose Test Within Functional Limits Finger Tapping Test Within Functional Limits OT-Muscle Tone Assessment Muscle Tone WNL Yes OT Sensation Assessment Edema Edema Absent M9 OT- IP Assessment and Plan Start: 06/06/23 15:24 Freq: Status: Active Protocol: Document 06/09/23 15:40 [facility] (Rec: 06/09/23 15:53 [facility] [id number]) OT Summary Assessment and Plan Potential Rehabilitation Potential Fair Analytic Complexity at Evaluation High Summary OT Impairments Strength,Balance,Functional Cognition,Functional Mobility, Grooming,Dressing,Toileting, Bathing,Toilet Transfers, Shower Transfers,Activity Tolerance Progress Towards Goals Slow Progress due to Medical Issues,Slow Progress due to Cognition Assessment Summary Pt main barriers continues to be poor safety awareness and today not able to sequence steps for ADL needs. Pt needing step by step commands and tactile cues. Pt if going home will need 24/7 assist and home health. Otherwise best to go to a adult family home or memory care facility. Skilled rehab may help to maximize her mobility needs and activity tolerance as pt is on O2 as the O2 tubing will be a high fall risk for the pt. Goals Self-Feeding Goal Independent Grooming Goal Independent Dressing Goal Standby Assistance Toileting Goal Standby Assistance Bathing Goal Standby Assistance Toilet Transfer Goal Standby Assistance Shower Transfer Goal Standby Assistance Days to Meet Goals 10 Frequency of Treatment Frequency Of Treatment Once a Day Treatment Plan OT Treatment Plan ADL Training,Functional Cognition Training,Functional Mobility,Patient/Family Education,Discharge Planning Other Treatment Recommendations and Next SLUMS Treatment Focus Discharge Recommendations OT Discharge Recommendations Home with 24/7 Assist Available,Home Health,SNF Rehab,LTAC Transportation Needs at Discharge Private Vehicle
[2023-06-10] VITALS (10 sets, daily range): BP systolic 87–159; BP diastolic 51–97; PULSE 71–94; RESP 18–24; TEMP 36–36.9; O2SAT 92–98
[2023-06-10] MEDS: PANTOPRAZOLE DR 40 MG TABLET PO (06:20)
--- NOTE | 2023-06-10 08:40 | OT.IP.TRT ---
Current Diagnoses Hypo-osmolality and hyponatremia (06/05/23) Essential (primary) hypertension (06/05/23) Unspecified atrial fibrillation (06/05/23) Heart failure, unspecified (06/05/23) Pneumonia, unspecified organism (06/05/23) Acute respiratory failure with hypoxia (06/05/23) Occupational Therapy Treatment Note M2 OT-IP Current Condition Start: 06/06/23 15:24 Freq: Status: Active Protocol: Document 06/06/23 15:24 CGR (Rec: 06/06/23 15:46 CGR [id number]) Occupational Therapy Current Condition Current Condition Evaluation Date 06/06/23 Treatment Diagnosis hypoxic PNA Diagnosis Onset Date 06/05/23 M3 OT- IP Subjective and Pain Start: 06/06/23 15:24 Freq: Status: Active Protocol: Document 06/10/23 08:40 [facility] (Rec: 06/10/23 09:06 [facility] [id number]) OT- Subjective Occupational Therapy Visit Type Type Treatment Note Visit Start Time 08:40 Visit Stop Time 08:50 Total Visit Minutes 10 Occupational Therapy Visit Comments Patient Comments Pt agreed to do SLUMS assessment. Patient/Caregiver Goals To get better. OT Pain Assessment Pain When Pain Assessed At Rest Pain Present Pain Present Denied Pain M5 OT- IP IADL's Start: 06/06/23 15:24 Freq: Status: Active Protocol: Document 06/06/23 15:24 CGR (Rec: 06/06/23 15:46 CGR [id number]) OT-Instrumental Activities of Daily Living Deficits IADL Deficits Identified Deficits Home Safety Awareness Awareness of Need for Assistance at Home Decreased Awareness Ability to Problem Solve Emergency Unable to Problem Solve Situations Medication Management Medication Management Comments concerns regarding pt's ability to perform Money Management Money Management Comments concerns regarding pt's ability to perform Meal Preparation Meal Preparation Comments concerns regarding pt's ability to perform Telesales Professional Telesales Professional Comments concerns regarding pt's ability to perform Driving Driving Comments pt does not drive M6 OT- IP Functional Cognition Start: 06/06/23 15:24 Freq: Status: Active Protocol: Document 06/10/23 08:40 [facility] (Rec: 06/10/23 09:06 [facility] [id number]) Cognitive Factors Limiting Selfcare Function Cognitive Ability Level of Alertness Alert Attention Span Ability Capable of Focused Attention, Unable to Sustain Attention Memory Description Short Term Impaired,Working Impaired Cognitive Tests SLUMS Tried to retest pt for SLUMS as she scored 19/30 on . Pt this time able to state the day of the week, identified 5 animals versus 12 in one minutes, unable to recall any objects after time passed versus remembered 3 last time, and unable to recall 3 digit number backwards as she was able to last time. Cognitive Comments Cognitive Assessment Comments Able to initiate testing for SLUMS and pt not doing as well as last time on 05/20/23. Pt scoring 6 pts versus 11 points up to the point pt wanting to stop as getting frustrated. Pt also did not recall taking a shower yesterday. Pt continues to have decreased short term memory and working memory at this time and will benefit from 24/ available assist. M9 OT- IP Assessment and Plan Start: 06/06/23 15:24 Freq: Status: Active Protocol: Document 06/10/23 08:40 [facility] (Rec: 06/10/23 09:09 [facility] [id number]) OT Summary Assessment and Plan Potential Rehabilitation Potential Fair Analytic Complexity at Evaluation High Summary OT Impairments Strength,Balance,Functional Cognition,Functional Mobility, Grooming,Dressing,Toileting, Bathing,Toilet Transfers, Shower Transfers,Activity Tolerance Progress Towards Goals Slow Progress due to Medical Issues,Slow Progress due to Cognition Assessment Summary Pt continues to have difficulty with short term memory, working memory, and poor safety awareness. If going home will benefit from 24/7 reliable assist versus memory care/LONG-TERM, or skilled rehab to first maximize for activity tolerance needs. Goals Self-Feeding Goal Independent Grooming Goal Independent Dressing Goal Standby Assistance Toileting Goal Standby Assistance Bathing Goal Standby Assistance Toilet Transfer Goal Standby Assistance Shower Transfer Goal Standby Assistance Days to Meet Goals 10 Frequency of Treatment Frequency Of Treatment Once a Day Treatment Plan OT Treatment Plan ADL Training,Functional Cognition Training,Functional Mobility,Patient/Family Education,Discharge Planning Discharge Recommendations OT Discharge Recommendations Home with 24/7 Assist Available,Home Health,SNF Rehab,LTAC Transportation Needs at Discharge Private Vehicle
[2023-06-10] MEDS: CEFEPIME 1 GM in SODIUM CHLORIDE 0.9% 100 ML IV ×2 (09:40→20:04)
[2023-06-10] MEDS: predniSONE 20 MG TABLET 40 MG PO (09:41)
[2023-06-10] MEDS: ENOXAPARIN 40 MG/0.4 ML SYRINGE SUBCUT (09:41)
[2023-06-10] MEDS: NICOTINE 14 PATCH 14 MG TOP (09:41)
[2023-06-10] MEDS: BENZONATATE 100 MG CAPSULE PO ×2 (09:42→23:57)
[2023-06-10] MEDS: HYDROCODONE/ACET 5/325 TABLET 1 TAB PO (09:42)
[2023-06-10] MEDS: FUROSEMIDE 20 MG TABLET PO (09:42)
[2023-06-10] MEDS: METOPROLOL IR 50 MG TABLET 150 MG PO ×2 (09:42→20:05)
[2023-06-10] MEDS: ESCITALOPRAM 10 MG TABLET 5 MG PO (09:42)
[2023-06-10] MEDS: MELOXICAM 7.5 MG TABLET 15 MG PO (09:42)
[2023-06-10] MEDS: NYSTATIN POWDER 15GM 1 APPLIC TOP (09:43)
[2023-06-10] MEDS: GABAPENTIN 300 MG CAPSULE 600 MG PO ×2 (09:43→20:05)
[2023-06-10] MEDS: ALBUTEROL/IPRATROPIUM 3 ML AMPUL INH ×2 (09:45→20:10)
[2023-06-10] MEDS: BUDESONIDE 0.5 MG/2 ML NEB INH ×2 (09:50→20:10)
--- NOTE | 2023-06-10 09:57 | PT.IPTN ---
Current Diagnoses Hypo-osmolality and hyponatremia (06/05/23) Essential (primary) hypertension (06/05/23) Unspecified atrial fibrillation (06/05/23) Heart failure, unspecified (06/05/23) Pneumonia, unspecified organism (06/05/23) Acute respiratory failure with hypoxia (06/05/23) Physical Therapy Treatment Note M2 PT-IP Current Condition Start: 06/06/23 08:21 Freq: NEEDED Status: Active Protocol: Document 06/06/23 11:11 AW (Rec: 06/06/23 11:53 AW [id number]) Physical Therapy Current Condition Current Condition Evaluation Date 06/06/23 Treatment Diagnosis hypoxic respiratory failure; sacral pressure injuries; impaired mobility Onset Date 06/05/23 M3 PT-IP Subjective Start: 06/06/23 08:21 Freq: NEEDED Status: Active Protocol: Document 06/10/23 09:57 AB (Rec: 06/10/23 12:34 AB [email or web address]) Subjective Physical Therapy Visit Type Type Treatment Note Visit Start Time 09:57 Visit Stop Time 10:36 Total Visit Minutes 39 Number of INSIDE WIRER Visits 0 Physical Therapy Visit Comments Patient Comments agreeable to do PT M4 PT-IP Mobility and Gait Start: 06/06/23 08:21 Freq: NEEDED Status: Active Protocol: Document 06/10/23 09:57 AB (Rec: 06/10/23 12:34 AB [email or web address]) PT-Bed Mobility Assessment Supine to Sit Supine to Sit Standby Assistance PT-Transfer Assessment Sit to and From Stand Sit to and from Stand Standby Assistance Equipment Transfer Assistive Device Gait Belt,4 Wheeled Walker Orthotic/Prosthetic Devices or Brace: No Transfers Transfer Destination Chair Transfer Technique ambulated Transfer Ability Level of Assist Standby Assistance Comments Mobility Comments pt supine in bed and agreeable to do PT. O2 sat : 97% @ 2L/ min. pt completed supine to sit SBA. educated pt on use of 4WW and how to manage brakes. pt completed sit to stand SBA. ambulated using 4WW SBA ~ 100 ft and cues for safety. pt agreed to sit up on the chair. cued for locking 4WW's brakes . positioned pt on the chair. O2 sat after ambulation: 97%. pt with cold fingers and difficulty obtaining O2 sat immediately and during ambulation. call light and table placed within reach. Gait Assessment Gait Gait Assistance Required: Standby Assistance Distance (Feet) 100 Able to Maintain Weight Bearing Status Yes During Gait Assistive Devices Assistive Device Gait Belt,4 Wheeled Walker Orthotic/Prosthetic Devices or Brace: No Factors Limiting Gait Function Factors Limiting Gait Function Decreased Activity Tolerance, Decreased Strength,Poor Balance,Poor Safety Awareness, Respiratory Distress M5 PT-IP Objective Assessments Start: 06/06/23 08:21 Freq: NEEDED Status: Active Protocol: Document 06/06/23 11:11 AW (Rec: 06/06/23 11:53 AW [id number]) Orientation Orientation/Cognition Level of Alertness Confusional State Orientation Name,Date,Place,Situation Comments Pt endorses some confusion. She scored 19/30 on SLUMS conducted by OT on 05/19/23. Gross Range of Motion Lower Extremity ROM Assessment Within Functional Limits Strength Lower Extremity Strength Assessment Within Functional Limits Comments Strength Comments Grossly 4+/5 BLE except hips 4 /5. Sensation Assessment Sensation Gross Sensation WNL M6 PT-IP Treatment Start: 06/06/23 08:21 Freq: NEEDED Status: Active Protocol: Document 06/10/23 09:57 AB (Rec: 06/10/23 12:34 AB [email or web address]) Physical Therapy Treatment Education Education Provided Safety M7 PT-IP Assessment and Plan Start: 06/06/23 08:21 Freq: NEEDED Status: Active Protocol: Document 06/10/23 09:57 AB (Rec: 06/10/23 12:34 AB [email or web address]) PT Summary Assessment and Plan Potential Rehabilitation Potential Fair Summary Impairments Pain,ROM,Strength,Balance, Coordination,Sensation,Tone, Cognition,Bed Mobility, Transfers,Gait,Activity Tolerance Progress Towards Goals Slow Progress due to Activity Tolerance Assessment Summary pt progressing slowly with mobility. pt able to ambulate using 4WW with cues for safety . O2 sat stable but pt continues to present with SOB. pt will need assistance at home and will benefit from HHPT. Goals Bed Mobility Goal Independent Transfer Goal Independent,Four Wheeled Walker Gait Goal Independent,Four Wheel Walker Gait Distance 200 Other Goals - Pt climbs 3 steps with R hand rail mod I for safe home entry Days to Meet Goals 10 Frequency of Treatment Frequency Of Treatment Once a Day Treatment Plan Physical Therapy Treatment Plan Bed Mobility Training,Transfer Training,Gait Training, Therapeutic Exercise,Balance Retraining,Discharge Planning, Hot or Cold Pack,Neuromuscular Re-ed Precautions Other Precautions O2 sat Recommendations To Nursing Amount of Assist Needed Standby Assistance Discharge Recommendations PT Discharge Recommendations Home with Assistance,Home Health Transportation Needs at Discharge Private Vehicle,Wheelchair/ Cabulance
[2023-06-10] MEDS: ALBUTEROL 2.5 MG/3 ML NEB (ADULT) INH (14:10)
--- NOTE | 2023-06-10 15:53 | PM.PN.1 ---
Subjective Subjective Interval history: Patient sleeping and not awakened. She is still on 2-3L NC. Did well with PT and walked 300ft. Exam Vital Signs (past 8 hours): - 06/10/23 08:00 06/10/23 09:45 06/10/23 09:52 Temperature 98.5 F Pulse Rate 71 80 90 Respiratory Rate 20 24 24 Blood Pressure 159/92 H Pulse Oximetry 98 96 Oxygen Delivery Method Nasal Cannula Oxygen Flow Rate 2 2 06/10/23 11:55 06/10/23 13:00 06/10/23 14:10 Temperature 97.1 F L Pulse Rate 77 83 94 H Respiratory Rate 20 22 Blood Pressure 87/51 L 112/64 Pulse Oximetry 96 97 Oxygen Delivery Method Nasal Cannula Oxygen Flow Rate 2 2 Fraction of Inspired Oxygen 28 SaO2/FiO2 Ratio 332 Oxygen Delivery Method Nasal Cannula Oxygen Flow Rate 2 Narrative Exam Narrative: Gen: no acute distress, on 2L NC CV: regular rate with irregularly irregular rhythm, no murmur Pulm: Bibasilar rales, no wheezing Abd: S NT ND Ext: trace b/l LE edema Objective Labs 06/09/23 03:32 06/09/23 03:32 PFSH Medical History Alcoholism Continuous tobacco abuse Hypertension Social History household members: none Smoking Status: Former smoker Assessment & Plan Assessment & Plan narrative: #Atrial fibrillation with rapid ventricular response, RVR resolved - continue metoprolol at 150 mg BID, has improved rate control now in the 80s generally. - address anticoagulation need closer to discharge. #acute respiratory failure with hypoxia, COPD with exacerbation - continue supportive therapies, diuresis, antibiotics, and steroids. Etiology likely multifactorial due to PNA after recent influenza infection, CHF, and COPD with exacerbation. - wean from oxygen as able, goal O2 88-96% while on supplemental therapies. - continue treatments as discussed separately below. - steroids with prednisone 40 mg daily x4 days after initial solumedrol given in the ER. #CHF (congestive heart failure) with preserved EF. -continued diuresis with furosemide 40 mg IV BID initially, now holding with hyponatremia, low BP. Continue diuresis prn. Restarted home oral furosemide 20 mg daily. -TTE with Normal EF at 50-55%, normal R ventricular function. RVSP of 46 on that study last month. Repeat study will not change of address clerk at this time. # Bacterial Pneumonia: - continue cefepime for presumed bacterial pneumonia x5 days # Hypertension: - holding home lisinopril, amlodipine in setting of rate control. Chronically on furosemide 20 mg, now diurese as needed. # Chronic hyponatremia - continue to follow, no current symptoms. Na 127 today #myocardial injury - downtrended, likely demand due to above respiratory failure. Code: Full, surrogate is patient's son Dispo: Likely home in 1-2 days. DVT: Lovenox daily, consider AC for afib as noted above.
--- NOTE | 2023-06-10 16:06 | CM.DPC ---
DCP [facility] Assessment SW received a call from [facility] Malachi Hanson [phone] and [email or web address] that she is now the assigned [facility] security control assessor. MANUEL provided clinical update and informed her that pt now floor care and no longer ICU and close to being stable for discharge and Malachi will work on getting a date for assessment for the pt for either [facility] vs [facility]. SENTHIL Spangler
[2023-06-10] MEDS: BENZOCAINE/MENTHOL 1 LOZ PKT 1 EACH PO (20:05)
[2023-06-10] MEDS: OXYCODONE IR 5 MG TABLET 2.5 MG PO (23:57)
[2023-06-11] VITALS (10 sets, daily range): BP systolic 87–163; BP diastolic 60–104; PULSE 59–87; RESP 17–22; TEMP 35.6–36.9; O2SAT 93–100
[2023-06-11] MEDS: NYSTATIN POWDER 15GM 1 APPLIC TOP ×3 (01:16→22:02)
[2023-06-11 04:37] LABS: Hematocrit 35.9 % (36-46); Hemoglobin 12.2 g/dL (12.0-16.0); Mean Corpuscular HGB Conc 33.8 % (30-36); Mean Corpuscular Hemoglobin 30.1 PG (26-34); Mean Corpuscular Volume 88.9 fL (80-100); Platelet Count 342 X10^3/uL (150-400); Red Blood Cell Count 4.04 X10^6/uL (4.0-5.2); White Blood Cell Count 7.1 X10^3/uL (4.5-11.0)
[2023-06-11 04:38] LABS: Add Manual Diff / Slide Review YES
[2023-06-11 04:41] LABS: BUN Creatinine Ratio 36.4 (6-22); Blood Urea Nitrogen 32 mg/dL (7-17); Calcium 9.7 mg/dL (8.4-10.2); Carbon Dioxide 31 mmol/L (22-32); Chloride 95 mmol/L (98-107); Estimated Glomerular Filt Rate > 60 mL/min (>60); Glucose 127 mg/dL (80-110); HEMOLYSIS < 15 (0-50); Potassium 5.7 mmol/L (3.4-5.1); Sodium 130 mmol/L (137-145)
[2023-06-11 04:53] LABS: Neutrophils Absolute Manual 4899 /uL (3000-5900); Total Cells Counted 100
[2023-06-11 04:54] LABS: RBC Morphology Normal Morphology
[2023-06-11] MEDS: PANTOPRAZOLE DR 40 MG TABLET PO (06:00)
[2023-06-11] MEDS: guaiFENesin Solution 100 MG/5 ML UDC PO ×2 (06:21→18:58)
[2023-06-11] MEDS: BENZOCAINE/MENTHOL 1 LOZ PKT 1 EACH PO (06:21)
--- NOTE | 2023-06-11 07:12 | PM.PN.1 ---
Subjective Subjective Interval history: 73 yo female w/alcohol dependence, HTN, tobacco dependence who was admitted 06/05/23 with acute hypoxia (she had d/c'd from the hospital on 3lpm 05/23/23 after hospitalization for influenza). She was noted to be on Room Air when EMS arrived at her home. She was felt to have COPD exacerbation, CHF exacerbation, and possible pneumonia. Hospital course has been complicated by a fib w/RVR, hyponatremia/hypotension secondary to diuresis. Patient reports she is continuing to feel rather poorly overall. She does continue to feel somewhat short of breath. She is to return to her home, which is a [place] in [facility]. She is preparing to work with physical therapy this afternoon. She has been declining therapies intermittently. She does note she is not had a bowel movement since her 2nd or 3rd day of hospitalization. Exam Vital Signs (past 8 hours): - 06/10/23 13:00 06/10/23 14:10 06/10/23 16:00 Temperature 96.9 F L Pulse Rate 83 94 H 72 Respiratory Rate 22 20 Blood Pressure 112/64 124/80 Pulse Oximetry 97 95 Oxygen Delivery Method Nasal Cannula Oxygen Flow Rate 2 2 06/10/23 20:00 Temperature 96.8 F L Pulse Rate 91 H Respiratory Rate 18 Blood Pressure 133/74 Pulse Oximetry 94 Oxygen Delivery Method Oxygen Flow Rate 2 Fraction of Inspired Oxygen 28 SaO2/FiO2 Ratio 332 Oxygen Delivery Method Nasal Cannula Oxygen Flow Rate 2 Narrative Exam Narrative: GEN: Elderly female, Alert and oriented x 3, NAD HEENT:NC, Face symmetric CHEST: Respiratory excursions symmetric, coarse and diminished but CTAB CV: RRR, no M/R/G ABD: Soft, NT/ND, BT present in all 4 quadrants, no organomegaly or masses EXTR: warm, well perfused, no C/C/E SKIN: warm and dry, no rash NEURO: Alert and oriented x 3, nonfocal Objective Labs 06/11/23 03:45 06/11/23 03:45 PFSH Medical History Alcoholism Continuous tobacco abuse Hypertension Social History household members: none Smoking Status: Former smoker Assessment & Plan Assessment & Plan narrative: 1. Acute on chronic hypoxic respiratory failure Slow be improving. She continues to feel poorly overall. She is expectorating some colored sputum. She remains on cefepime. She is back on her usual dose of furosemide. Continue budesonide as well. 2. COPD exacerbation As above, remains on budesonide. She completed a course of oral steroids. Continue breathing treatments as needed. 3. CHF exacerbation Improving. As noted, she is back on her usual dose of oral Lasix. 4. Hyponatremia Sodium is stable at 130 5. Possible pneumonia As above, remains on cefepime. She does have colored sputum. 6. Hyperkalemia Today's lab revealed a potassium of 5.7 which is a fairly significant change from prior. Suspect it is hemolysis related. Will recheck in the morning. She is not receiving any supplementation of potassium. 7. Constipation Will add senna. Code status Full Prophy On Lovenox Dispo Likely home to her cabin with home health. An APS referral was done this admission due to concerns of self neglect
[2023-06-11] MEDS: CEFEPIME 1 GM in SODIUM CHLORIDE 0.9% 100 ML IV ×2 (08:36→22:00)
[2023-06-11] MEDS: ESCITALOPRAM 10 MG TABLET 5 MG PO (08:37)
[2023-06-11] MEDS: ENOXAPARIN 40 MG/0.4 ML SYRINGE SUBCUT (08:37)
[2023-06-11] MEDS: GABAPENTIN 300 MG CAPSULE 600 MG PO ×2 (08:38→22:01)
[2023-06-11] MEDS: FUROSEMIDE 20 MG TABLET PO (08:38)
[2023-06-11] MEDS: NICOTINE 14 PATCH 14 MG TOP (08:39)
[2023-06-11] MEDS: MELOXICAM 7.5 MG TABLET 15 MG PO (08:39)
[2023-06-11] MEDS: METOPROLOL IR 50 MG TABLET 150 MG PO ×2 (08:39→22:02)
[2023-06-11] MEDS: ALBUTEROL/IPRATROPIUM 3 ML AMPUL INH ×2 (09:05→19:41)
[2023-06-11] MEDS: BUDESONIDE 0.5 MG/2 ML NEB INH ×2 (09:12→19:42)
--- NOTE | 2023-06-11 11:45 | PT-IP ANOTE ---
Pt found sleeping, difficult to rouse, refused PT and would like to sleep at this time. PT may check on pt in afternoon.
--- NOTE | 2023-06-11 13:37 | CM.DPC ---
DCP Cont: Discussed patient during team rounds. Confirmed that patient now has a newly assigned [facility] bottle caser named Elvin Hanson. Patient is currently on oxygen. Patient has been under the services of [facility], and went home on oxygen at last discharge. Notes indicated, patient was not compliant with home oxygen. Resides in a cabin on [facility], [place] the [facility]. Plan is for patient to have [facility] caregiver, will need to have a home assessment. P: DCP to continue to follow. At this time, plan is home. Will need to ensure that she resumes home health services, and can update her bottle caser at discharge as well. Ann Maire Mendez RN/Director Child
--- NOTE | 2023-06-11 14:44 | PT.IPTN ---
Current Diagnoses Hypo-osmolality and hyponatremia (06/05/23) Essential (primary) hypertension (06/05/23) Unspecified atrial fibrillation (06/05/23) Heart failure, unspecified (06/05/23) Pneumonia, unspecified organism (06/05/23) Acute respiratory failure with hypoxia (06/05/23) Physical Therapy Treatment Note M2 PT-IP Current Condition Start: 06/06/23 08:21 Freq: NEEDED Status: Active Protocol: Document 06/06/23 11:11 AW (Rec: 06/06/23 11:53 AW [id number]) Physical Therapy Current Condition Current Condition Evaluation Date 06/06/23 Treatment Diagnosis hypoxic respiratory failure; sacral pressure injuries; impaired mobility Onset Date 06/05/23 M3 PT-IP Subjective Start: 06/06/23 08:21 Freq: NEEDED Status: Active Protocol: Document 06/11/23 14:44 AB (Rec: 06/11/23 15:31 AB [email or web address]) Subjective Physical Therapy Visit Type Type Treatment Note Visit Start Time 14:44 Visit Stop Time 15:18 Total Visit Minutes 34 Number of RAW JUICE WEIGHER Visits 0 Physical Therapy Visit Comments Patient Comments agreeable to do PT M4 PT-IP Mobility and Gait Start: 06/06/23 08:21 Freq: NEEDED Status: Active Protocol: Document 06/11/23 14:44 AB (Rec: 06/11/23 15:31 AB [email or web address]) PT-Bed Mobility Assessment Supine to Sit Supine to Sit Standby Assistance PT-Transfer Assessment Sit to and From Stand Sit to and from Stand Standby Assistance,1 Person Assistance,Use of Upper Extremities Equipment Transfer Assistive Device Gait Belt,4 Wheeled Walker Orthotic/Prosthetic Devices or Brace: No Transfers Transfer Destination Chair Transfer Technique ambulated Transfer Ability Level of Assist Standby Assistance,1 Person Assistance,Use of Upper Extremities Comments Mobility Comments pt is agreeable to do PT. O2 sat 97% with 2L/min O2. completed supine to sit SBA. pt with cold fingers and has difficulty obtaining accurate O2 sat. completed sit to stand SBA and ambulated in the hallway ~ 250 ft SBA using 4WW. cued on how to use brakes locking/ unlocking. pt agreed to sit up on the chair after ambulation. position pt on the chair. chair alarm on. call light and table placed within reach. O2 sat with O2 on at end of tx session: 93-97%. Gait Assessment Gait Gait Assistance Required: Standby Assistance Distance (Feet) 250 Able to Maintain Weight Bearing Status Yes During Gait Assistive Devices Assistive Device Gait Belt,4 Wheeled Walker Orthotic/Prosthetic Devices or Brace: No Gait Deviations General Gait Pattern Decreased Stride Length, Decreased Feet Clearance Factors Limiting Gait Function Factors Limiting Gait Function Decreased Activity Tolerance, Decreased Strength,Difficulty Following Directions,Poor Balance,Poor Safety Awareness, Respiratory Distress M5 PT-IP Objective Assessments Start: 06/06/23 08:21 Freq: NEEDED Status: Active Protocol: Document 06/06/23 11:11 AW (Rec: 06/06/23 11:53 AW [id number]) Orientation Orientation/Cognition Level of Alertness Confusional State Orientation Name,Date,Place,Situation Comments Pt endorses some confusion. She scored 19/30 on SLUMS conducted by OT on 05/19/23. Gross Range of Motion Lower Extremity ROM Assessment Within Functional Limits Strength Lower Extremity Strength Assessment Within Functional Limits Comments Strength Comments Grossly 4+/5 BLE except hips 4 /5. Sensation Assessment Sensation Gross Sensation WNL M6 PT-IP Treatment Start: 06/06/23 08:21 Freq: NEEDED Status: Active Protocol: Document 06/11/23 14:44 AB (Rec: 06/11/23 15:31 AB [email or web address]) Physical Therapy Treatment Education Education Provided Safety M7 PT-IP Assessment and Plan Start: 06/06/23 08:21 Freq: NEEDED Status: Active Protocol: Document 06/11/23 14:44 AB (Rec: 06/11/23 15:31 AB [email or web address]) PT Summary Assessment and Plan Potential Rehabilitation Potential Fair Summary Impairments Pain,ROM,Strength,Balance, Coordination,Sensation,Tone, Cognition,Bed Mobility, Transfers,Gait,Activity Tolerance Progress Towards Goals Slow Progress due to Medical Issues,Slow Progress due to Activity Tolerance,Slow Progress - Other Assessment Summary pt is progressing slowly with mobility requiring SBA with use of 4WW but continues to require cues for safety. pt with memory/cognitive issues affecting safety awareness. pt lives alone and will need assistance at home and HHPT. will continue to assess progress. Goals Bed Mobility Goal Independent Transfer Goal Independent,Four Wheeled Walker Gait Goal Independent,Four Wheel Walker Gait Distance 200 Other Goals - Pt climbs 3 steps with R hand rail mod I for safe home entry Days to Meet Goals 10 Frequency of Treatment Frequency Of Treatment Once a Day Treatment Plan Physical Therapy Treatment Plan Bed Mobility Training,Transfer Training,Gait Training, Therapeutic Exercise,Balance Retraining,Discharge Planning, Hot or Cold Pack,Neuromuscular Re-ed Other Recommendations and Next Treatment Stair climbing Focus Precautions Other Precautions O2 sat Recommendations To Nursing Amount of Assist Needed Standby Assistance Discharge Recommendations PT Discharge Recommendations Home with Assistance,Home Health Transportation Needs at Discharge Private Vehicle,Wheelchair/ Cabulance
[2023-06-11] MEDS: OXYCODONE IR 5 MG TABLET 2.5 MG PO (18:57)
[2023-06-11] MEDS: BENZONATATE 100 MG CAPSULE PO (18:58)
[2023-06-11] MEDS: SENNOSIDES 8.6 MG TABLET 17.2 MG PO (22:00)
[2023-06-12] VITALS (7 sets, daily range): BP systolic 104–157; BP diastolic 68–86; PULSE 78–94; RESP 16–20; TEMP 35.8–37.1; O2SAT 92–100
[2023-06-12] MEDS: BENZONATATE 100 MG CAPSULE PO (03:23)
[2023-06-12] MEDS: PANTOPRAZOLE DR 40 MG TABLET PO (06:09)
[2023-06-12 06:27] LABS: Hemoglobin 12.6 g/dL (12.0-16.0); Mean Corpuscular Hemoglobin 30.3 PG (26-34); Mean Corpuscular Volume 89.1 fL (80-100); Platelet Count 322 X10^3/uL (150-400); Red Blood Cell Count 4.15 X10^6/uL (4.0-5.2); Red Cell Distribution Width 14.9 % (11.6-14.8); White Blood Cell Count 6.4 X10^3/uL (4.5-11.0)
[2023-06-12 06:30] LABS: Add Manual Diff / Slide Review YES
[2023-06-12 06:35] LABS: BUN Creatinine Ratio 28.4 (6-22); Blood Urea Nitrogen 23 mg/dL (7-17); Calcium 9.2 mg/dL (8.4-10.2); Carbon Dioxide 33 mmol/L (22-32); Chloride 96 mmol/L (98-107); Estimated Glomerular Filt Rate > 60 mL/min (>60); Glucose 74 mg/dL (80-110); HEMOLYSIS < 15 (0-50); Potassium 4.5 mmol/L (3.4-5.1); Sodium 130 mmol/L (137-145)
[2023-06-12 06:46] LABS: Neutrophils Absolute Manual 4096 /uL (3000-5900); RBC Morphology Normal Morphology; Total Cells Counted 100
[2023-06-12] MEDS: CEFEPIME 1 GM in SODIUM CHLORIDE 0.9% 100 ML IV (09:32)
[2023-06-12] MEDS: ENOXAPARIN 40 MG/0.4 ML SYRINGE SUBCUT (09:33)
[2023-06-12] MEDS: ESCITALOPRAM 10 MG TABLET 5 MG PO (09:33)
[2023-06-12] MEDS: FUROSEMIDE 20 MG TABLET PO (09:34)
[2023-06-12] MEDS: MELOXICAM 7.5 MG TABLET 15 MG PO (09:34)
[2023-06-12] MEDS: METOPROLOL IR 50 MG TABLET 150 MG PO ×2 (09:34→22:00)
[2023-06-12] MEDS: GABAPENTIN 300 MG CAPSULE 600 MG PO ×2 (09:35→21:59)
[2023-06-12] MEDS: NYSTATIN POWDER 15GM 1 APPLIC TOP ×2 (09:35→22:01)
[2023-06-12] MEDS: NICOTINE 14 PATCH 14 MG TOP (09:35)
[2023-06-12] MEDS: BUDESONIDE 0.5 MG/2 ML NEB INH ×2 (10:09→19:47)
[2023-06-12] MEDS: ALBUTEROL/IPRATROPIUM 3 ML AMPUL INH ×2 (10:09→19:47)
--- NOTE | 2023-06-12 12:00 | PT.IPTN ---
Current Diagnoses Hypo-osmolality and hyponatremia (06/05/23) Essential (primary) hypertension (06/05/23) Unspecified atrial fibrillation (06/05/23) Heart failure, unspecified (06/05/23) Pneumonia, unspecified organism (06/05/23) Acute respiratory failure with hypoxia (06/05/23) Physical Therapy Treatment Note M2 PT-IP Current Condition Start: 06/06/23 08:21 Freq: NEEDED Status: Active Protocol: Document 06/06/23 11:11 AW (Rec: 06/06/23 11:53 AW [id number]) Physical Therapy Current Condition Current Condition Evaluation Date 06/06/23 Treatment Diagnosis hypoxic respiratory failure; sacral pressure injuries; impaired mobility Onset Date 06/05/23 M3 PT-IP Subjective Start: 06/06/23 08:21 Freq: NEEDED Status: Active Protocol: Document 06/12/23 11:36 KS (Rec: 06/12/23 13:32 KS [id number]) Subjective Physical Therapy Visit Type Type Treatment Note Visit Start Time 11:36 Visit Stop Time 12:00 Total Visit Minutes 24 Number of BORDER INSPECTOR Visits 1 Physical Therapy Visit Comments Patient Comments agreeable to do PT M4 PT-IP Mobility and Gait Start: 06/06/23 08:21 Freq: NEEDED Status: Active Protocol: Document 06/12/23 11:36 KS (Rec: 06/12/23 13:32 KS [id number]) PT-Bed Mobility Assessment Supine to Sit Supine to Sit Contact Guard Assistance,1 Person Assistance Scooting Scooting to Edge of Bed Standby Assistance PT-Transfer Assessment Sit to and From Stand Sit to and from Stand Contact Guard Assistance,1 Person Assistance,Use of Upper Extremities Equipment Transfer Assistive Device Gait Belt,4 Wheeled Walker Orthotic/Prosthetic Devices or Brace: No Transfers Transfer Destination Bed Transfer Technique ambulated Transfer Ability Level of Assist Contact Guard Assistance,1 Person Assistance,Use of Upper Extremities Comments Mobility Comments Pt remains on 2L O2, CGA for bed mobility and sit<>Stand w/ 4WW. Pt ambulated ~20 ft in room w/ FWW and CGA, but then seemed to impulsively sit, this therapist was able to lower pt to the ground slowly and had very soft landing on floor and pt reported no pain. 1 PA to return to standing, CGA to ambulate back to bed. RN , COOKING INSTRUCTOR, and TURNING LATHE TENDER made aware. Pt left in bed w/ all needs in reach and reporting no pain. Gait Assessment Gait Gait Assistance Required: Contact Guard Assist,1 Person Assist Distance (Feet) 20 Able to Maintain Weight Bearing Status Yes During Gait Assistive Devices Assistive Device Gait Belt,4 Wheeled Walker Orthotic/Prosthetic Devices or Brace: No Gait Deviations General Gait Pattern Decreased Stride Length, Decreased Feet Clearance Factors Limiting Gait Function Factors Limiting Gait Function Decreased Activity Tolerance, Decreased Strength,Difficulty Following Directions,Poor Balance,Poor Safety Awareness, Respiratory Distress Comments Gait Comments See mobility, pt impulsive, did not appear to have any LOB but suddenly sat straight back and needed lowering to floor. M5 PT-IP Objective Assessments Start: 06/06/23 08:21 Freq: NEEDED Status: Active Protocol: Document 06/06/23 11:11 AW (Rec: 06/06/23 11:53 AW [id number]) Orientation Orientation/Cognition Level of Alertness Confusional State Orientation Name,Date,Place,Situation Comments Pt endorses some confusion. She scored 19/30 on SLUMS conducted by OT on 05/19/23. Gross Range of Motion Lower Extremity ROM Assessment Within Functional Limits Strength Lower Extremity Strength Assessment Within Functional Limits Comments Strength Comments Grossly 4+/5 BLE except hips 4 /5. Sensation Assessment Sensation Gross Sensation WNL M6 PT-IP Treatment Start: 06/06/23 08:21 Freq: NEEDED Status: Active Protocol: Document 06/12/23 11:36 KS (Rec: 06/12/23 13:32 KS [id number]) Physical Therapy Treatment Education Education Provided Safety M7 PT-IP Assessment and Plan Start: 06/06/23 08:21 Freq: NEEDED Status: Active Protocol: Document 06/12/23 11:36 KS (Rec: 06/12/23 13:32 KS [id number]) PT Summary Assessment and Plan Potential Rehabilitation Potential Fair Summary Impairments Pain,ROM,Strength,Balance, Coordination,Sensation,Tone, Cognition,Bed Mobility, Transfers,Gait,Activity Tolerance Progress Towards Goals Slow Progress due to Medical Issues,Slow Progress due to Activity Tolerance,Slow Progress - Other Assessment Summary Pt required CGA for mobility today but had sudden fall while using 4WW. She is impulsive with her movements and has cognitive and memory issues. She is at a high risk of falling at home so will either need 24/7 or possibly SNF - will continue to assess progress. Goals Bed Mobility Goal Independent Transfer Goal Independent,Four Wheeled Walker Gait Goal Independent,Four Wheel Walker Gait Distance 200 Other Goals - Pt climbs 3 steps with R hand rail mod I for safe home entry Days to Meet Goals 10 Frequency of Treatment Frequency Of Treatment Once a Day Treatment Plan Physical Therapy Treatment Plan Bed Mobility Training,Transfer Training,Gait Training, Therapeutic Exercise,Balance Retraining,Discharge Planning, Hot or Cold Pack,Neuromuscular Re-ed Other Recommendations and Next Treatment Stair climbing Focus Precautions Other Precautions O2 sat Recommendations To Nursing Amount of Assist Needed Standby Assistance Discharge Recommendations PT Discharge Recommendations Home with 24/01 Assist Available,Home Health,SNF Rehab Transportation Needs at Discharge Private Vehicle,Wheelchair/ Cabulance
--- NOTE | 2023-06-12 16:46 | P.PN_ITS ---
Subjective Subjective Interval history: Patient has no complaints. CLINICAL QUALITY ASSURANCE SPECIALIST to review with APS about her dispo plan. Exam Vital Signs (past 8 hours): - 06/12/23 10:12 06/12/23 12:00 06/12/23 15:18 Temperature 97.4 F L 98.8 F Pulse Rate 87 Respiratory Rate 16 Blood Pressure 104/68 Pulse Oximetry 100 92 Oxygen Delivery Method Nasal Cannula Oxygen Flow Rate 2 2 Fraction of Inspired Oxygen 28 SaO2/FiO2 Ratio 342 Oxygen Delivery Method Nasal Cannula Oxygen Flow Rate 2 Narrative Exam Narrative: GEN: Elderly female, Alert and oriented x2, NAD HEENT:NC, Face symmetric CHEST: Respiratory excursions symmetric, coarse and diminished but CTAB CV: RRR, no M/R/G ABD: Soft, NT/ND, BT present in all 4 quadrants, no organomegaly or masses EXTR: warm, well perfused, no C/C/E SKIN: warm and dry, no rash NEURO: Nonfocal Objective Labs 06/12/23 05:15 06/12/23 05:15 Labs: Laboratory Results - last 24 hr 06/12/23 05:15 WBC 6.4 RBC 4.15 Hgb 12.6 Hct 37.0 MCV 89.1 MCH 30.3 MCHC 34.0 RDW 14.9 H Plt Count 322 Neut % (Auto) Not Reportable Lymph % (Auto) Not Reportable [place] % (Auto) Not Reportable Eos % (Auto) Not Reportable Baso % (Auto) Not Reportable Lymph # (Auto) Not Reportable [place] # (Auto) Not Reportable Baso # (Auto) Not Reportable Total Counted 100 Seg Neutrophils % 63.0 Band Neutrophils % 1.0 L Lymphocytes % (Manual) 18.0 L Monocytes % (Manual) 14.0 H Metamyelocytes % 4.0 H Neutrophils # (Manual) 4096 RBC Morphology Normal morphology Sodium 130 L Potassium 4.5 D Chloride 96 L Carbon Dioxide 33 H BUN 23 H Creatinine 0.81 Estimated GFR > 60 BUN/Creatinine Ratio 28.4 H Glucose 74 L Calcium 9.2 PFSH Medical History Alcoholism Continuous tobacco abuse Hypertension Social History household members: none Smoking Status: Former smoker Assessment & Plan Assessment & Plan narrative: 1. Acute on chronic hypoxic respiratory failure Slow be improving. She continues to feel poorly overall. She is expectorating some colored sputum. She remains on cefepime. She is back on her usual dose of furosemide. Continue budesonide as well. 2. COPD exacerbation As above, remains on budesonide. She completed a course of oral steroids. Continue breathing treatments as needed. 3. CHF exacerbation Improving. As noted, she is back on her usual dose of oral Lasix. 4. Hyponatremia Sodium is stable at 130. 5. Possible pneumonia Finished 5 day course of cefepime. 6. Constipation Senna. Code status Full Prophy On Lovenox Dispo Likely home to her [place] with home health. An APS referral was done this admission due to concerns of self neglect.
--- NOTE | 2023-06-12 17:30 | CM.DPNOTE ---
DCP note HORSESHOER reviewed EMR. Per OT, most recent SLUMS is a 12/31 at this time. Pt SLUMS on May 20 was . Therapy team noted the change in scores over the previous month to team in rounds. HORSESHOER attempted to contact APS Dileep Burns and DEMETRIS Oconnor for direction on dcp. No response. HORSESHOER emailed APS Dileep recent OT note/inquired about their rec for dcp following their investigation for self neglect. No clear DCP At this time. Most likely, the plan will be home with DEMETRIS to assess for [facility] plan/APS to follow for self neglect. CM team will continue to follow closely. SENTHIL Mcguire
[2023-06-13 03:33] VITALS: BP 119/66; PULSE 100; RESP 22; TEMP 36.8; O2SAT 89
[2023-06-13 04:56] LABS: Hematocrit 35.3 % (36-46); Hemoglobin 12.1 g/dL (12.0-16.0); Mean Corpuscular HGB Conc 34.2 % (30-36); Mean Corpuscular Volume 87.7 fL (80-100); Platelet Count 295 X10^3/uL (150-400); Red Blood Cell Count 4.02 X10^6/uL (4.0-5.2); Red Cell Distribution Width 14.9 % (11.6-14.8); White Blood Cell Count 5.1 X10^3/uL (4.5-11.0)
[2023-06-13 04:59] LABS: Add Manual Diff / Slide Review YES
[2023-06-13 05:06] LABS: BUN Creatinine Ratio 21.9 (6-22); Blood Urea Nitrogen 16 mg/dL (7-17); Carbon Dioxide 34 mmol/L (22-32); Chloride 94 mmol/L (98-107); Estimated Glomerular Filt Rate > 60 mL/min (>60); Glucose 87 mg/dL (80-110); HEMOLYSIS < 15 (0-50); Potassium 4.3 mmol/L (3.4-5.1); Sodium 128 mmol/L (137-145)
[2023-06-13 05:17] LABS: Neutrophils Absolute Manual 3570 /uL (3000-5900); Total Cells Counted 100
[2023-06-13 05:18] LABS: Platelet Estimate Adeq; RBC Morphology Normal Morphology
[2023-06-13 07:22] VITALS: PULSE 106; RESP 20; O2SAT 92
[2023-06-13] MEDS: BUDESONIDE 0.5 MG/2 ML NEB INH (07:22)
[2023-06-13] MEDS: ALBUTEROL/IPRATROPIUM 3 ML AMPUL INH (07:22)
[2023-06-13 08:00] VITALS: BP 123/82; PULSE 99; RESP 16; TEMP 36.3; O2SAT 93
[2023-06-13] MEDS: ENOXAPARIN 40 MG/0.4 ML SYRINGE SUBCUT (08:14)
[2023-06-13] MEDS: PANTOPRAZOLE DR 40 MG TABLET PO (08:14)
[2023-06-13] MEDS: FUROSEMIDE 20 MG TABLET PO (08:15)
[2023-06-13] MEDS: NICOTINE 14 PATCH 14 MG TOP (08:15)
[2023-06-13] MEDS: METOPROLOL IR 50 MG TABLET 150 MG PO (08:15)
[2023-06-13] MEDS: MELOXICAM 7.5 MG TABLET 15 MG PO (08:15)
[2023-06-13] MEDS: ESCITALOPRAM 10 MG TABLET 5 MG PO (08:15)
[2023-06-13] MEDS: GABAPENTIN 300 MG CAPSULE 600 MG PO (08:15)
[2023-06-13] MEDS: NYSTATIN POWDER 15GM 1 APPLIC TOP (08:16)
--- NOTE | 2023-06-13 09:35 | PT.IPTN ---
Current Diagnoses Hypo-osmolality and hyponatremia (06/05/23) Essential (primary) hypertension (06/05/23) Unspecified atrial fibrillation (06/05/23) Heart failure, unspecified (06/05/23) Pneumonia, unspecified organism (06/05/23) Acute respiratory failure with hypoxia (06/05/23) Physical Therapy Treatment Note M2 PT-IP Current Condition Start: 06/06/23 08:21 Freq: NEEDED Status: Active Protocol: Document 06/06/23 11:11 AW (Rec: 06/06/23 11:53 AW [id number]) Physical Therapy Current Condition Current Condition Evaluation Date 06/06/23 Treatment Diagnosis hypoxic respiratory failure; sacral pressure injuries; impaired mobility Onset Date 06/05/23 M3 PT-IP Subjective Start: 06/06/23 08:21 Freq: NEEDED Status: Active Protocol: Document 06/13/23 10:11 ZF (Rec: 06/13/23 10:22 ZF [id number]) Subjective Physical Therapy Visit Type Type Treatment Note Visit Start Time 09:35 Visit Stop Time 10:06 Total Visit Minutes 31 Number of LATEX CASTER Visits 2 Physical Therapy Visit Comments Patient Comments agreeable to do PT M4 PT-IP Mobility and Gait Start: 06/06/23 08:21 Freq: NEEDED Status: Active Protocol: Document 06/13/23 10:11 ZF (Rec: 06/13/23 10:22 ZF [id number]) PT-Bed Mobility Assessment Supine to Sit Supine to Sit Independent Scooting Scooting to Edge of Bed Independent PT-Transfer Assessment Sit to and From Stand Sit to and from Stand Standby Assistance,1 Person Assistance,Use of Upper Extremities Equipment Transfer Assistive Device Gait Belt,4 Wheeled Walker Orthotic/Prosthetic Devices or Brace: No Transfers Transfer Destination Bed,Chair Transfer Technique Stand Step Pivot Transfer Ability Level of Assist Standby Assistance,Use of Upper Extremities Comments Mobility Comments Supine>Sitting EOB, Pt is Ind. Vitals montiroed in sittin/58mmHg, 99BPM, 91%O2sat. STS from EOB, WC w/2ww, SBA. Pt amb x75' in room and hallway w/CGA and WC following closely behind due to reports of knee buckling yesterday resulting in controlled fall. Pt dems no knee buckling today , no LOB, reports no shortness of breath on room air. Standing LE TE to improve strength and tolerance for activity to include HKM, HC, Hip abd, Calf Raise, Mini Squats x10 reps. Pt is Ind w/ Sitting EOB>Supine. Call light within reach. Gait Assessment Gait Gait Assistance Required: Contact Guard Assist,1 Person Assist Distance (Feet) 75 Assistive Devices Assistive Device Gait Belt,4 Wheeled Walker Orthotic/Prosthetic Devices or Brace: No Gait Deviations General Gait Pattern Decreased Stride Length, Decreased Feet Clearance Factors Limiting Gait Function Factors Limiting Gait Function Decreased Activity Tolerance, Decreased Strength,Difficulty Following Directions,Poor Safety Awareness Comments Gait Comments See mobility comments. M5 PT-IP Objective Assessments Start: 06/06/23 08:21 Freq: NEEDED Status: Active Protocol: Document 06/06/23 11:11 AW (Rec: 06/06/23 11:53 AW [id number]) Orientation Orientation/Cognition Level of Alertness Confusional State Orientation Name,Date,Place,Situation Comments Pt endorses some confusion. She scored 19/30 on SLUMS conducted by OT on 05/19/23. Gross Range of Motion Lower Extremity ROM Assessment Within Functional Limits Strength Lower Extremity Strength Assessment Within Functional Limits Comments Strength Comments Grossly 4+/5 BLE except hips 4 /5. Sensation Assessment Sensation Gross Sensation WNL M6 PT-IP Treatment Start: 06/06/23 08:21 Freq: NEEDED Status: Active Protocol: Document 06/13/23 10:11 LIDA (Rec: 06/13/23 10:22 LIDA [id number]) Physical Therapy Treatment Education Education Provided Safety M7 PT-IP Assessment and Plan Start: 06/06/23 08:21 Freq: NEEDED Status: Active Protocol: Document 06/13/23 10:11 LIDA (Rec: 06/13/23 10:22 LIDA [id number]) PT Summary Assessment and Plan Potential Rehabilitation Potential Fair Summary Impairments Pain,ROM,Strength,Balance, Coordination,Sensation,Tone, Cognition,Bed Mobility, Transfers,Gait,Activity Tolerance Progress Towards Goals Slow Progress due to Medical Issues,Slow Progress due to Activity Tolerance,Slow Progress - Other Assessment Summary Pt dems improved activity tolerance today. O2sat down to 88% w/amb, increases to 96% within x2 mins. Pt is Ind for bed Mobility, SBA for transfers, CGA/SBA for amb. Recommending DC home w/24/01 and HHPT. Goals Bed Mobility Goal Independent Transfer Goal Independent,Four Wheeled Walker Gait Goal Independent,Four Wheel Walker Gait Distance 200 Other Goals - Pt climbs 3 steps with R hand rail mod I for safe home entry Days to Meet Goals 10 Frequency of Treatment Frequency Of Treatment Once a Day Treatment Plan Physical Therapy Treatment Plan Bed Mobility Training,Transfer Training,Gait Training, Therapeutic Exercise,Balance Retraining,Discharge Planning, Hot or Cold Pack,Neuromuscular Re-ed Recommendations To Nursing Amount of Assist Needed Standby Assistance Discharge Recommendations PT Discharge Recommendations Home with 24/01 Assist Available,Home Health Transportation Needs at Discharge Private Vehicle,Wheelchair/ Cabulance
--- NOTE | 2023-06-13 10:27 | PM.DS.1 ---
History of Present Illness History of Present Illness Date Patient Seen: 06/05/23 Time Patient Seen: 23:08 Chief complaint: Wound Narrative: The pt is a 73 yo whose friend called EMS and was found to be significantly hypoxic and brought to the ER. She was just in our facility 2 weeks ago from 05/19-05/23 for Influenza and was supposed to be on 3 lpm of oxygen but paramedics found her in her house with just RA. THe pt stated she washed her NC and couldn't find it again, uncertain how long she has been without oxygen. THe pt believes she is in the hospital because of a bed sore on her sacrum because she has not been getting out of her bed much since discharge. Elisha denies any cough, fevers, pain, chills, n/v/diarrhea but does admit to severe weakness and debility. She states she has not smoked since her last discharge and no beer (was drinking 6-12 beers per day) but only occational shots of vodka mixed with some stuff. Discharge Providers Provider Date of admission: 06/05/23 21:35 Discharge Date: 06/13/23 Primary care physician: ALIYAH Choi Consults: 06/05/23 17:04 [place] [facility] [place] Stat Comment: 06/05/23 21:39 Consult to Discharge Planning Routine Comment: Consult to Physical Therapy Evaluate & Treat Comment: Physician Instructions: Evaluate and Treat 06/05/23 22:38 [place] [facility] [place] [facility] Routine Comment: 06/06/23 08:54 Consult to Occupational Therapy Evaluate & Treat Comment: Physician Instructions: Evaluate and treat 06/11/23 14:41 Consult to Occupational Therapy Evaluate & Treat Comment: SLUMS assessment pls Physician Instructions: Evaluate and treat Discharge provider: Cm Monae DO Summary Hospital Course Discharge Diagnosis: 1. Acute on chronic hypoxic respiratory failure Slow be improving. She continues to feel poorly overall. She is expectorating some colored sputum. Finished cefepime. She is back on her usual dose of furosemide. Continue budesonide as well. 2. COPD exacerbation As above, remains on budesonide. She completed a course of oral steroids. Continue breathing treatments as needed. 3. CHF exacerbation Improving. As noted, she is back on her usual dose of oral Lasix. 4. Hyponatremia Sodium is stable at 130. 5. Possible pneumonia Finished 5 day course of cefepime. 6. Constipation Senna. Hospital Course: Admitted for hypoxia and treated for COPD exac and PNA. Improved and returned to baseline O2 of 2L. PT did a MMSE which she scored 27 indicating normal cognition. Discharged home with . Exam Vital Signs (past 8 hours): - 06/13/23 03:33 06/13/23 07:22 06/13/23 08:00 Temperature 98.2 F 97.3 F L Pulse Rate 100 H 106 H 99 H Respiratory Rate 22 20 16 Blood Pressure 119/66 123/82 Pulse Oximetry 89 L 92 93 Oxygen Delivery Method Room Air Oxygen Flow Rate 0 0 0 Fraction of Inspired Oxygen 21 Fraction of Inspired Oxygen 21 SaO2/FiO2 Ratio 438 Oxygen Delivery Method Room Air Oxygen Flow Rate 0 Narrative Exam Narrative: GEN: Elderly female, Alert and oriented x3, NAD HEENT:NC, Face symmetric CHEST: Respiratory excursions symmetric, coarse and diminished but CTAB CV: RRR, no M/R/G ABD: Soft, NT/ND, BT present in all 4 quadrants, no organomegaly or masses EXTR: warm, well perfused, no C/C/E SKIN: warm and dry, no rash NEURO: Nonfocal Objective Labs 06/13/23 04:40 06/13/23 04:40 Labs: Laboratory Results - last 24 hr 06/13/23 04:40 WBC 5.1 RBC 4.02 Hgb 12.1 Hct 35.3 L MCV 87.7 MCH 30.0 MCHC 34.2 RDW 14.9 H Plt Count 295 Neut % (Auto) Not Reportable Lymph % (Auto) Not Reportable [place] % (Auto) Not Reportable Eos % (Auto) Not Reportable Baso % (Auto) Not Reportable Lymph # (Auto) Not Reportable [place] # (Auto) Not Reportable Baso # (Auto) Not Reportable Total Counted 100 Seg Neutrophils % 68.0 Band Neutrophils % 2.0 L Lymphocytes % (Manual) 24.0 L Monocytes % (Manual) 1.0 L Eosinophils % (Manual) 2.0 Metamyelocytes % 3.0 H Neutrophils # (Manual) 3570 Platelet Estimate Adeq Plt Morphology Comment RBC Morphology Normal morphology Sodium 128 L Potassium 4.3 Chloride 94 L Carbon Dioxide 34 H BUN 16 Creatinine 0.73 Estimated GFR > 60 BUN/Creatinine Ratio 21.9 Glucose 87 Calcium 9.0 PFSH Medical History Alcoholism Continuous tobacco abuse Hypertension Social History household members: none Smoking Status: Former smoker Discharge Plan Discharge Plan Patient Disposition: Home Health Service Provider Discharge Comment: You were treated for a pneumonia and improved. Discharge orders & Medications Prescriptions: Continued albuterol sulfate 90 mcg/actuation HFA aerosol inhaler 1 - 2 puff inhalation Q4H PRN (Reason: Shortness Of Breath Or Wheezing) amlodipine 5 mg tablet 5 mg PO DAILY escitalopram oxalate 5 mg tablet 5 mg PO DAILY furosemide 20 mg tablet 20 mg PO QAM fluticasone furoate-vilanterol [Breo Ellipta] 200-25 mcg/dose blister with device 1 ea inhalation DAILY meloxicam 15 mg tablet 15 mg PO DAILY metoprolol succinate 100 mg tablet extended release 24 hr 300 mg PO DAILY pantoprazole 40 mg tablet,delayed release (DR/EC) 40 mg PO DAILY gabapentin 300 mg capsule 600 mg PO BID lisinopril 40 mg tablet 40 mg PO QPM nicotine 21 mg/24 hr Patch 24 Hour 21 mg topical DAILY Qty: 28 0RF Follow up/Referrals: Carmelina Camargo FNP-C [Primary Care Provider] - 2 Weeks Visit Report/Discharge Packet Stand Alone Forms: Patient Portal/API, Stroke Signs & Symptoms Discharge Data Primary Care Provider: Carmelina Camargo
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
[2023-06-13 12:00] VITALS: BP 130/82; PULSE 80; RESP 18; TEMP 36.2; O2SAT 96
[2023-06-13 16:00] VITALS: BP 167/107; PULSE 92; RESP 17; TEMP 36.4; O2SAT 93
--- NOTE | 2023-06-13 19:52 | PC.NURSE ---
pt discharged via private vehicle around 1944. Pt's brother came in to get patient. Discharge instructions given to the patient. tele and Iv discontinued.
--- NOTE | 2023-06-14 13:28 | CM.DPNOTE ---
DCP Note TRADE SALES ASSISTANT received call from [facility] Computer System Technician Elvin Hanson. TRADE SALES ASSISTANT reviewed EMR. TRADE SALES ASSISTANT updated her on pt's discharge yesterday. Elvin appreciated updated and will continue with the home assessment on their end. SENTHIL Mcguire
== END 2023-06-13 19:45 | disposition home health service (06) | DRG 193 ==
LOC: ED 21:36 → AC 21:37 → ICU 22:14 → AC 06-09 19:07
PROVIDERS: Emergency Medicine; Internal Medicine; Student in an Organized Health Care Education/Training Program; Admitting Provider Internal Medicine; Emergency Provider Emergency Medicine; PCP Registered Nurse; Referring Provider Emergency Medicine; Visit Provider Internal Medicine
DX: J18.9 Pneumonia, unspecified organism (principal); J96.21 Acute and chronic respiratory failure with hypoxia; E87.1 Hypo-osmolality and hyponatremia; J44.1 Chronic obstructive pulmonary disease with (acute) exacerbation; I50.30 Unspecified diastolic (congestive) heart failure; I5A Non-ischemic myocardial injury (non-traumatic); I11.0 Hypertensive heart disease with heart failure; I48.91 Unspecified atrial fibrillation; E87.5 Hyperkalemia; K59.00 Constipation, unspecified; Z87.891 Personal history of nicotine dependence
CPT/HCPCS: 36415; 36600; 71045; 71275; 80048; 80053; 80320; 81001; 82550; 82805; 82962; 83605; 83690; 83735; 83880; 84145; 84443; 84484; 85007; 85025; 87633; 87797; 93005; 94640; 94762; 96365; 96367; 96375; 97110; 97116; 97129; 97162; 97167; 97530; 97535; 99285; 99291; J0692; J1650; J1940; J2930; J3475; J7613; Q9967